=== PATIENT | male | born 1930 | race Caucasian/White ===

== ENCOUNTER 2017-07-22 22:25 | Inpatient (IN) | payer MEDICARE ==
[~2017-07-22] VITALS: Ht 162.6 cm; Wt 79.4 kg
[2017-07-22 22:25] VITALS: BP 143/94; PULSE 70; RESP 20; TEMP 98.4; O2SAT 98
[2017-07-22] MEDS ORDERED: IOHEXOL 350 MG/ML 10 ML VIAL (for RAD DIAG) IVCONTRAST ONE (22:26)
[2017-07-22 22:30] VITALS: BP 143/94; PULSE 70; RESP 20; O2SAT 98; O2SAT 99
[2017-07-22] MEDS ORDERED: SODIUM CHLOR 0.9% 1000 ML INJ 1,000 ML IV SCH (22:45)
[2017-07-22 22:48] LABS: I-STAT POTASSIUM 4.5 MMOL/L (3.5-4.9)
[2017-07-22 22:50] LABS: AUTOMATED NEUTROPHIL # 3.5 TH/MM3 (1.8-7.7); BASOPHIL % 0.5 % (0.0-2.0); EOSINOPHIL # 0.2 TH/MM3 (0-0.4); EOSINOPHIL % 3.9 % (0.0-4.0); HEMO FLAGS DIFF FINAL; LYMPH % 29.4 % (9.0-44.0); LYMPHOCYTE # 1.7 TH/MM3 (1.0-4.8); MEAN CELL VOLUME 93.6 FL (80.0-100.0); MEAN CORPUSCULAR HEMOGLOBIN 31.1 PG (27.0-34.0); MEAN CORPUSCULAR HGB CONC 33.2 % (32.0-36.0); MONO % 7.1 % (0.0-8.0); NEUT % 59.1 % (16.0-70.0); PLATELET COUNT 134 TH/MM3 (150-450); RED BLOOD COUNT 4.49 MIL/MM3 (4.50-5.90); RED CELL DISTRIBUTION WIDTH 13.5 % (11.6-17.2); WHITE BLOOD COUNT 5.9 TH/MM3 (4.0-11.0)
--- NOTE | 2017-07-22 22:56 | RADRPT ---
EXAM DATE/TIME: 07/22/2017 22:42 [facility] COMPARISON: No previous studies available for comparison. INDICATIONS : Stroke alert; slurred speech, left sided weakness. RADIATION DOSE: 36.45 CTDIvol (mGy) This report was called by Dr. Olmstead to Dr. Mccormack at 10: 54 PM MEDICAL HISTORY : Non-responsive. SURGICAL HISTORY : Non-responsive. ENCOUNTER: Initial ACUITY: 1 day PAIN SCALE: LOCATION: cranial TECHNIQUE: Multiple contiguous axial images were obtained of the head. Using automated exposure control and adj ustment of the mA and/or kV according to patient size, radiation dose was kept as low as reasonably a chievable to obtain optimal diagnostic quality images. DICOM format image data is available electro nically for review and comparison. FINDINGS: No acute intracranial mass, hemorrhage or midline shift. No hydrocephalus. Previous aneurysm clip not ed in the left middle cranial fossa. CONCLUSION: 1. No acute findings. Wilmar Olmstead MD on July 22, 2017 at 22:50 Board Certified Radiologist. This report was verified electronically.
[2017-07-22 23:09] LABS: APTT (PATIENT) 25.9 SEC (24.3-30.1); INTERNATIONAL NORMALIZED RATIO 1.2 RATIO; PROTHROMBIN TIME - PATIENT 12.2 SEC (9.8-11.6)
--- NOTE | 2017-07-22 23:12 | PD ---
HPI Chief Complaint: Stroke Alert Time Seen by Provider: 22:37 Travel History International Travel<30 days: No Contact w/Intl Traveler<30days: No History of Present Illness HPI The patient is an 86 year old male who presents to the [facility] emergency department with a history of reportedly last being seen normal at approximately 9:30 PM while sitting on the couch watching television. The patient then proceeded to take a few large deep breaths and then fell face forward onto the carpeted floor. The patient was unable to get up. The patient was noted to have at that time a left facial droop, left upper and left lower extremity weakness. The patient was assisted up by his grandson and family. The patient was then brought in by private vehicle. The patient has no prior history of stroke. The patient does however have a prior history of brain aneurysm status post clipping. The patient on arrival is noted to have an abrasion to the left side of his head. The patient is also noted to have abdominal distention which the family reports is chronic, however he also has an area of ecchymosis in the right upper quadrant of the abdomen which they report his new. The patient arrives awake and alert and is able to follow commands although he does have slurred speech. The patient has a gaze deviation to the right with a palsy with attempting to look to the left. The patient has an attention to his left side. The patient has a left-sided facial droop. The patient is on a low-dose aspirin daily. Otherwise review of systems, the patient has had recent congestion, cough, in the morning a couple of days ago accordingfamily he did have a bad cough and brought up some sputum that was next with a tinge of blood. Otherwise they deny him having any light in his stool or black or tarry stools. They are unsure whether the patient has had any fevers. He has had problems recently with increased shortness of breath and does have a history of COPD. The patient is on 2 L nasal cannula O2 at home when necessary. He denies having any neck pain, chest pain, abdominal pain, vomiting, diarrhea, or urinary symptoms. [facility] Past Medical History Narrative Medical The patient's past medical history is significant for COPD, coronary artery disease status post 3 stents being placed, history of aneurysm clipping, history of prostate enlargement, history of hypertension. He denies any prior history of stroke. Past Surgical History Narrative Surgical The Patient's past surgical history is significant for aneurysm clipping, cardiac catheterization with 3 prior stents placed. Social History Alcohol Use: No Tobacco Use: No Substance Use: No Allergies-Medications (Allergen,Severity, Reaction): Coded Allergies: No Known Allergies (Unverified , 07/22/17) Narrative Medication Metoprolol, terazosin, low-dose aspirin daily Review of Systems Except as stated in HPI: all other systems reviewed are Neg General / Constitutional: No: Fever Eyes: No: Visual changes HENT: Positive: Rhinorrhea, Congestion, No: Headaches Cardiovascular: Positive: Dyspnea on exertion, No: Chest Pain or Discomfort Respiratory: Positive: Cough, Shortness of Breath, Wheezing Gastrointestinal: No: Nausea, Vomiting, Diarrhea, Abdominal Pain Genitourinary: No: Dysuria Musculoskeletal: No: Pain Skin: No Rash Neurologic: Positive: Weakness, Focal Abnormalities, Slurred Speech, Sensory Disturbance, No: Change in Mentation Psychiatric: No: Depression Endocrine: No: Polydipsia Hematologic/Lymphatic: No: Easy Bruising Physical Exam Narrative General: The patient is a well-developed well-nourished male in no acute distress. Head and Neck exam: Head is normocephalic atraumatic. Eyes: EOMI, pupils are equal round and reactive to light. Nose: Midline septum with pink mucous membranes Mouth: Dentition unremarkable. Moist mucus membranes. Posterior oropharynx is not erythematous. No tonsillar hypertrophy. Uvula midline. Airway patent. Neck: No palpable lymphadenopathy. No nuchal rigidity. No thyromegaly. No spinous process tenderness on palpation. No step-off or crepitus. No erythema or ecchymosis. Cardiovascular: Regular rate and rhythm without murmurs, gallops, or rubs. No pulse deficit to the extremities on simultaneous auscultation and palpation of his radial artery. Lungs: Clear to auscultation bilaterally. No wheezes, rhonchi, or rales. Abdomen: Soft, without tenderness to palpation in all 4 quadrants of the abdomen. No guarding, rebound, or rigidity. Normal bowel sounds are audible. No tenderness on palpation of McBurney's point. Negative Jesus's sign. The patient has a circular appearing area of ecchymosis in the right upper quadrant of the abdomen which is according to the family new since his fall. Extremities: No clubbing, cyanosis, or edema. 2+ pulses in all 4 extremities. No calf tenderness on palpation. No extremity tenderness on palpation. Back: No spinous process tenderness to palpation. No costovertebral angle tenderness to palpation. Neurologic Exam: The patient has slurred speech. The patient has a left-sided facial droop. The patient has drift of the left upper and left lower extremity with strength testing, 4 over 5 in the left, 5 over 5 strength in the right upper and right lower extremity. The patient has a gaze palsy when attempting to gaze to the left side. The patient appears to have mild extinction to left side. The patient has decreased sensation to the left side. The patient is able to state his name and answer questions. Skin Exam: No rash noted. Intact skin that is warm and dry. Data Data Last Documented VS Vital Signs Date Time Temp Pulse Resp B/P (MAP) Pulse Ox O2 Delivery O2 Flow Rate FiO2 07/22/17 22:30 99 Nasal Cannula 4.00 07/22/17 22:30 70 20 143/94 (110) 07/22/17 22:25 98.4 Orders Orders Diet Npo (07/23/17 Breakfast) Activity Bed Rest (07/22/17 ) Electrocardiogram (07/22/17 ) I-Stat Creatinine (07/22/17 22:37) I-Stat Profile (07/22/17 22:37) Prothrombin Time / Inr (Pt) (07/22/17 22:37) Act Partial Throm Time (Ptt) (07/22/17 22:37) Complete Blood Count With Diff (07/22/17 22:37) Fibrinogen (07/22/17 22:37) Creatine Kinase (Cpk) (07/22/17 22:37) Troponin I (07/22/17 22:37) Ua Includes Microscopic (07/22/17 22:37) Drug Screen, Random Urine (07/22/17 22:37) Type And Screen (07/22/17 22:37) Ct Brain W/O Iv Contrast(Rout) (07/22/17 ) Chest, Single Ap (07/22/17 ) Cta Brain W Iv Contrast W 3d (07/22/17 22:37) Cta Neck W Iv Contrast W 3d (07/22/17 22:37) Consult Neurology (07/22/17 ) Blood Glucose (07/22/17 22:37) Ecg Monitoring (07/22/17 22:37) Neuro Checks Q2HX12,Q4H (07/22/17 22:37) Nursing Bedside Swallow Assess .ONCE (07/22/17 22:37) Iv Access Insert/Monitor (07/22/17 22:37) NPO (07/22/17 22:37) Oximetry (07/22/17 22:37) Oxygen Administration (07/22/17:37) Resp Oxygen Thomas C Titrat 1-4 L (07/22/17 22:37) Cath For Specimen (07/22/17 22:37) Ct Abd/Pel W Iv Contrast(Rout) (07/22/17 22:37) Ct Cerv Spine W/O Contrast (07/22/17 22:37) Sodium Chlor 0.9% 1000 Ml Inj (Ns 1000 M (07/22/17 22:45) (Hub Use Only)Inp Phy Cons/Ref (07/22/17 ) Iohexol 350 Inj (Omnipaque 350 Inj) (07/22/17 22:26) Blood Culture (07/23/17 00:02) Methylprednisolone So Succ Inj (Solumedr (07/23/17 00:15) Albuterol-Ipratropium Neb (Duoneb Neb) (07/23/17 00:15) Ceftriaxone Inj (Rocephin Inj) (07/23/17 00:15) Azithromycin Inj (Zithromax Inj) (07/23/17 00:15) Clopidogrel (Plavix) (07/23/17 00:15) Admit Order (Ed Use Only) (07/23/17 00:20) Labs Laboratory Tests Test 07/22/17 22:28 White Blood Count 5.9 TH/MM3 Red Blood Count 4.49 MIL/MM3 Hemoglobin 13.9 GM/DL Bedside Hemoglobin 14.3 G/DL Hematocrit 42.0 % Bedside Hematocrit 42.0 % Mean Corpuscular Volume 93.6 FL Mean Corpuscular Hemoglobin 31.1 PG Mean Corpuscular Hemoglobin Concent 33.2 % Red Cell Distribution Width 13.5 % Platelet Count 134 TH/MM3 Mean Platelet Volume 8.4 FL Neutrophils (%) (Auto) 59.1 % Lymphocytes (%) (Auto) 29.4 % Monocytes (%) (Auto) 7.1 % Eosinophils (%) (Auto) 3.9 % Basophils (%) (Auto) 0.5 % Neutrophils # (Auto) 3.5 TH/MM3 Lymphocytes # (Auto) 1.7 TH/MM3 Monocytes # (Auto) 0.4 TH/MM3 Eosinophils # (Auto) 0.2 TH/MM3 Basophils # (Auto) 0.0 TH/MM3 CBC Comment DIFF FINAL Differential Comment Prothrombin Time 12.2 SEC Prothromb Time International Ratio 1.2 RATIO Activated Partial Thromboplast Time 25.9 SEC Fibrinogen 488 mg/dL Bedside Sodium 143 MMOL/L Bedside Potassium 4.5 MMOL/L Bedside Chloride 105 MMOL/L Bedside Blood Urea Nitrogen 29 MG/DL Bedside Creatinine 1.7 MG/DL Bedside Glucose 97 MG/DL Total Creatine Kinase 72 U/L Troponin I 0.02 NG/ML [facility] Medical Screen Exam Complete: Yes Emergency Medical Condition: Yes Medical Record Reviewed: Yes EKG Prior to Arrival: No Differential Diagnosis Intracranial hemorrhage, versus ischemic stroke, versus intracranial mass, versus hypoglycemia. Narrative Course During the course of the patients emergency department visit, the patients history, examination, and differential diagnosis were reviewed with the patient. The patient was placed on a real estate attorney with oximetry and frequent blood pressure monitoring. The patient had IV access obtained and blood work sent for analysis. A stroke alert was called upon the patient's arrival. An EKG was done on arrival that shows a sinus rhythm with occasional premature ventricular complexes heart rate is 76, QRS duration is 90 ms, QTC 421 ms. The patient was initially provided normal saline at 70 mL per hour. The patient 's head of the bed was placed flat. I spoke to the neurologist airways operations specialist who recommended CT scan of the brain. She recommended proceeding with CTA of the brain and neck if the CT scan of the brain is negative for hemorrhage. CT scan of the abdomen and pelvis was also ordered given the patient's abdominal wall bruising. The patient also had a CT scan of the C-spine ordered to rule out traumatic injury to his neck. The patients laboratory studies were reviewed and remarkable for i-STAT with creatinine which revealed a sodium of 143, potassium 4.5, chloride 105, BUN 29, glucose 97, hemoglobin 14.3, creatinine 1.7. The patient was noted to have a white count of 5.9, hemoglobin 13.9, platelets 134 with a normal differential, fibrinogen 488, PT 12.2, PTT 25.9. Radiology studies were reviewed and remarkable for CT scan of the brain was read as negative for hemorrhage by the reading radiologist. Chest x-ray reveals a possible right infrahilar infiltrate. The patient was given DuoNeb 3 , Solu-Medrol 125 mg IV, and Rocephin 1 g IV followed by Zithromax 500 mg IV for pneumonia. C-spine x-ray shows degenerative changes, no acute abnormality. CT a of the brain shows no evidence of vessel truncation or aneurysm. CT scan of the abdomen and pelvis shows severe right hydronephrosis and hydroureter , no calcified stone findings suggest obstruction at the ureteral vesicle junction, cannot exclude bladder mass, infrarenal abdominal aortic aneurysms measuring up to 3.7 cm. Several nodular densities in the anterior right lower lung, round low-density lesion in the spleen. After discussion with the patient and the patient's family regarding the administration of TPA, the patient and the patient's family elected to not have this administered. The also decided to make the patient a DO NOT INTUBATE. The patients results were discussed with the patient, including the plan of care. I explained that further testing and/ or monitoring is indicated based on the patients history, examination, and/ or laboratory findings. Therefore, I recommended admission for additional evaluation. The patient expressed understanding and was agreeable with this plan. The patient was admitted to the hospital in critical condition and sent to a bed under the care of the veneer supervisor service. Critical Care Narrative Aggregate critical care time was 45 minutes. Time to perform other separately billable procedures was not included in the critical care time. My time did not include minutes spent treating any other patients simultaneously or on activities that did not directly contribute to the patient's treatment. The services I provided to this patient were to treat and/or prevent clinically significant deterioration that could result in: Respiratory failure, versus cardiovascular collapse, versus hypoxic brain injury, versus progressive disability I provided critical care services requiring my management, as noted below: Chart data review, documentation time, medication orders and management, vital sign assessments/reviewing monitor data, ordering and reviewing lab tests, ordering and interpreting/reviewing x-rays and diagnostic studies, care of the patient and discussion of the patient with the admitting physicians. Stroke Alert NIHSS NIH Stroke Scale Result: 8 NIHSS Time Completed: 22:53 Physician Communication Physician Communication The patient's case including history, pertinent physical examination findings, and laboratory studies were discussed with Ran, Dr. Olmstead, Dr. Storey. I spoke to the neurologist initially upon the patient's arrival. After CT scan was read by the radiologist, Dr. Olmstead at 1053 I again spoke to at 10:56 PM. Given the patient's history of aneurysm clipping, recent blood tinged sputum with coughing a few days ago, she recommended continued evaluation with a CTA of the brain. At 11:01 PM I did discuss with the patient's family the possibility of administering TPA although his risk would be higher given his age , history of aneurysm clipping, history of recent blood-tinged sputum. They're in the process of deciding whether they would want this administered. It was agreed that the patient would be admitted to the veneer supervisor service. Diagnosis Diagnosis: Primary Impression: Ischemic stroke Additional Impressions: COPD exacerbation Pneumonia Qualified Codes: J18.9 - Pneumonia, unspecified organism Admitting Physician Requests: Admit Maureen Mccormack MD Jul 22, 2017 23:11
--- NOTE | 2017-07-22 23:31 | RADRPT ---
EXAM DATE/TIME: 07/22/2017 22:51 [facility] COMPARISON: No previous studies available for comparison. INDICATIONS : Trauma; fall, bruising on abdomen. IV CONTRAST: 75 cc Omnipaque 350 (iohexol) IV ; Cumulative dose for multiple exams. ORAL CONTRAST: No oral contrast ingested. RADIATION DOSE: 15.26 CTDIvol (mGy) MEDICAL HISTORY : Non-responsive. SURGICAL HISTORY : Non-responsive. ENCOUNTER: Initial ACUITY: 1 day PAIN SCALE: 5/10 LOCATION: Bilateral abdomen TECHNIQUE: Volumetric scanning of the abdomen and pelvis was performed. Using automated exposure control and ad justment of the mA and/or kV according to patient size, radiation dose was kept as low as reasonably achievable to obtain optimal diagnostic quality images. DICOM format image data is available electro nically for review and comparison. FINDINGS: LOWER LUNGS: Several small nodular densities measuring 4 mm or less seen on the superiormost image of the scan in the anterior lower right lung. Mild pleural thickening in the right costophrenic angle. LIVER: Homogeneous density without lesion. There is no dilation of the biliary tree. No calcified gallston es. SPLEEN: Normal size. Solitary round low density lesion in the lateral midpole measures 1.9 cm, 50 Hounsfield unit.. PANCREAS: Within normal limits. KIDNEYS: Abnormal appearance to the right kidney with severe hydronephrosis and hydroureter which extends down to the ureterovesical junction. No calcified stones in the collecting system or ureter. The left k idney is normal in appearance and the left ureter is normal. ADRENAL GLANDS: Within normal limits. VASCULAR: 3.7 cm infrarenal abdominal aortic aneurysm with intraluminal thrombus. There is a 2nd aneurysmal di lation at the bifurcation measuring 3.1 cm. The iliac vessels are normal in dimension. BOWEL/MESENTERY: The stomach, small bowel, and colon demonstrate no acute abnormality. There is no free intraperitone al air or fluid. ABDOMINAL WALL: Within normal limits. RETROPERITONEUM: There is no lymphadenopathy. BLADDER: No wall thickening or mass. REPRODUCTIVE: Multiple metallic seeds within the prostate. The fat about the seminal vesicles is maintained. INGUINAL: There is no lymphadenopathy or hernia. MUSCULOSKELETAL: Mild degenerative changes. No sclerotic lesions. CONCLUSION: 1. Severe right hydronephrosis and hydroureter no calcified stones. Findings suggest obstruction at ureteral vesicle junction. Can not exclude a bladder mass. 2. Infrarenal abdominal aortic aneurysms measuring up to 3.7 cm. 3. Several small nodular densities in the anterior right lower lung, incompletely included in the fie ld-of-view of the exam. 4. Round low density lesion in the spleen. Tino Lenz MD on July 22, 2017 at 23:23 Board Certified Radiologist. This report was verified electronically.
--- NOTE | 2017-07-22 23:34 | RADRPT ---
EXAM DATE/TIME: 07/22/2017 23:28 [facility] COMPARISON: No previous studies available for comparison. INDICATIONS : CVA, short of breath. MEDICAL HISTORY : Stroke. SURGICAL HISTORY : None. ENCOUNTER: Initial ACUITY: 1 day PAIN SCORE: 0/10 LOCATION: Bilateral chest FINDINGS: Single frontal view of the chest with mild motion artifact. The heart is normal in size. Possible c onsolidative infiltrate in the right infrahilar region. The remainder of the lungs are clear. Both hemidiaphragms are well delineated. CONCLUSION: Possible right infrahilar infiltrate. Tino Lenz MD on July 22, 2017 at 23:33 Board Certified Radiologist. This report was verified electronically.
[2017-07-23] VITALS (17 sets, daily range): BP systolic 137–161; BP diastolic 63–79; PULSE 73–102; RESP 19–47; TEMP 98.9–100.4; O2SAT 93–98
[2017-07-23] MEDS ORDERED: methylPREDNISolone SOD SUCC 125 MG/2 ML VIAL IV PUSH ONE (00:15)
[2017-07-23] MEDS ORDERED: AZITHROMYCIN INJ 500 MG in SODIUM CHLOR 0.9% 250 ML INJ 250 ML IV ONE (00:15)
[2017-07-23] MEDS ORDERED: CLOPIDOGREL 75 MG TAB PO ONE (00:15)
[2017-07-23] MEDS ORDERED: cefTRIAXone INJ 1,000 MG in SODIUM CHLORIDE 0.9% INJ 100 ML IV ONE (00:15)
--- NOTE | 2017-07-23 00:29 | RADRPT ---
EXAM DATE/TIME: 07/22/2017 22:51 [facility] COMPARISON: No previous studies available for comparison. INDICATIONS : Neck pain after fall. RADIATION DOSE: ; Reconstructed from previous dataset, no dose MEDICAL HISTORY : Non-responsive. SURGICAL HISTORY : Non-responsive. ENCOUNTER: Initial ACUITY: 1 day PAIN SCALE: 5/10 LOCATION: Bilateral neck TECHNIQUE: Volumetric scanning of the cervical spine was performed. Multiplanar reconstructions in the sagittal, coronal and oblique axial planes were performed. Using automated exposure control and adjustment o f the mA and/or kV according to patient size, radiation dose was kept as low as reasonably achievable to obtain optimal diagnostic quality images. DICOM format image data is available electronically f or review and comparison. FINDINGS: There is normal alignment of the vertebral bodies of the cervical spine preservation of vertebral bod y height. Moderate severity degenerative changes seen the posterior elements, left greater than righ t 3 no evidence of locked or perched facets. The atlantoaxial articulation is intact. C2-C3: No fracture seen. The bony neural foramina are patent. C3-C4: No fracture seen. Mild bilateral neural foraminal stenosis. C4-C5: No fracture seen. Mild bilateral neural foraminal stenosis. C5-C6: No fracture seen. Moderate bilateral neural foraminal stenosis. C6-C7: No fracture seen. Moderate bilateral neural foraminal stenosis. C7-T1: No fracture seen. The bony neural foramina are patent. CONCLUSION: 1. Degenerative changes throughout the cervical spine. 2. No evidence of compression deformity or spondylolisthesis. Tino Lenz MD on July 23, 2017 at 0:08 Board Certified Radiologist. This report was verified electronically.
--- NOTE | 2017-07-23 00:41 | RADRPT ---
EXAM DATE/TIME: 07/22/2017 22:51 [facility] COMPARISON: CT BRAIN W/O CONTRAST, July 22, 2017, 22:42. INDICATIONS : Stroke alert; slurred speech, left sided weakness. IV CONTRAST: 75 cc Omnipaque 350 (iohexol) IV ; Cumulative dose for multiple exams. RADIATION DOSE: 27.68 CTDIvol (mGy) ; Combined studies MEDICAL HISTORY : Non-responsive. SURGICAL HISTORY : Non-responsive. ENCOUNTER: Initial ACUITY: 1 day PAIN SCALE: Non-responsive LOCATION: Bilateral cranial TECHNIQUE: Volumetric scanning was performed using a multi-row detector CT scanner. The data was post processed with a variety of visualization algorithms including full volume maximum intensity projection, multi -planar sliding thin slab reformation, curved planar reformation, and surface rendering techniques. Using automated exposure control and adjustment of the mA and/or kV according to patient size, radiat ion dose was kept as low as reasonably achievable to obtain optimal diagnostic quality images. DICO M format image data is available electronically for review and comparison. FINDINGS: There is excellent visualization of the major intracranial arteries out to the second-order branch ve ssels. There is no evidence for aneurysm, vessel truncation or stenosis, and no evidence for vascula r malformation. The right posterior cerebral artery arises from the anterior circulation. Anterior communicating artery is normal in size. Aneurysm clip in the left anterior middle cranial fossa. CONCLUSION: No evidence of vessel truncation or aneurysm. Tino Lenz MD on July 23, 2017 at 0:37 Board Certified Radiologist. This report was verified electronically.
--- NOTE | 2017-07-23 00:53 | RADRPT ---
EXAM DATE/TIME: 07/22/2017 22:51 [place] COMPARISON: No previous studies available for comparison. INDICATIONS : Stroke alert; slurred speech, left sided weakness. IV CONTRAST: 75 cc Omnipaque 350 (iohexol) IV ; Cumulative dose for multiple exams. RADIATION DOSE: 27.68 CTDIvol (mGy) ; Combined studies MEDICAL HISTORY : Non-responsive. SURGICAL HISTORY : Non-responsive. ENCOUNTER: Initial ACUITY: 1 day PAIN SCALE: Non-responsive LOCATION: Bilateral neck Elevated flow velocities and ICA/CCA ratios have been found to correlate with increased degrees of vessel stenosis, calculated as percentage of diameter relative to a normal segment of distal ICA/CCA. TECHNIQUE: Volumetric scanning was performed using a multirow detector CT scanner. The data was post processed with a variety of visualization algorithms including full-volume maximum intensity projection, multip lanar sliding thin-slab reformation, curved-planar reformation, and surface-rendering techniques. Us ing automated exposure control and adjustment of the mA and/or kV according to patient size, radiatio n dose was kept as low as reasonably achievable to obtain optimal diagnostic quality images. DICOM f ormat image data is available electronically for review and comparison. FINDINGS: AORTIC ARCH: There is a three-vessel origin of the great vessels from the aorta. Prominent calcifications of the origin of all 3 vessels and primary calcifications in the aortic arch.. RIGHT CAROTID: Multifocal old calcifications in the internal carotid artery with a 50% luminal narrowing in the mid internal carotid artery. Carotid folds is normal in configuration. LEFT CAROTID: Multifocal areas of wall calcification in the proximal and mid internal carotid artery without eviden ce of luminal narrowing. The carotid bulb is normal in configuration. VERTEBRALS: The vertebral arteries have a symmetric diameter. No stenotic lesions are seen. CONCLUSION: 1. Calcification in the proximal right internal carotid artery causing 50% lumen narrowing. 2. Calcifications the origin of the great vessels from the aorta and in the left internal carotid art dennis with out significant luminal narrowing. Tino Lenz MD on July 23, 2017 at 0:49 Board Certified Radiologist. This report was verified electronically.
[2017-07-23] MEDS ORDERED: BISACODYL 10 MG SUPP RECTAL PRN (01:00)
[2017-07-23] MEDS ORDERED: LACTULOSE SYRUP 20 GM/30 ML CUP PO PRN (01:00)
[2017-07-23] MEDS ORDERED: ACETAMINOPHEN 325 MG TAB PO PRN (01:00)
[2017-07-23] MEDS ORDERED: MISCELLANEOUS NURSING INFORMATION XX SCH (01:00)
[2017-07-23] MEDS ORDERED: ONDANSETRON HCL 4 MG/2 ML VIAL IV PUSH PRN (01:00)
[2017-07-23] MEDS ORDERED: SODIUM CHLORIDE 0.9% FLUSH 10 ML FLUSH IV FLUSH PRN (01:00)
[2017-07-23] MEDS ORDERED: SENNOSIDES 8.6 MG TAB PO PRN (01:00)
[2017-07-23] MEDS: RESP: ALBUTEROL 2.5 MG/IPRATROPIUM 0.5 MG NEB (SCH) INH ×2 (01:00→01:01)
[2017-07-23] MEDS ORDERED: MAGNESIUM HYDROXIDE SUSP 30 ML CUP PO PRN (01:00)
[2017-07-23] MEDS ORDERED: hydrALAZINE HCL 20 MG/ML VIAL IV PUSH PRN (01:00)
[2017-07-23] MEDS ORDERED: CHLORHEXIDINE GLUCONATE 2 % 1 PACK (2 CLOTHS) TOP PRN (01:00)
--- NOTE | 2017-07-23 01:05 | HHI.HP ---
HPI Service Critical Care Medicine Primary Care Physician Non-Staff Admission Diagnosis Stroke Alert, Pneumonia, copd exacerbation Diagnosis: Travel History International Travel<30 Days: No Contact w/Intl Traveler <30 Da: No Traveled to Known Affected Are: No History of Present Illness 86 year old male presents with a history of last being seen normal at approximately 9:30 PM while sitting on the couch watching television. The patient then proceeded to take a few large deep breaths and then fell face forward onto the carpeted floor. The patient was unable to get up. He was noted to have at that time a left facial droop, left upper and left lower extremity weakness. He has no prior history of stroke. He has a prior history of brain aneurysm status post clipping about 30 years ago. The patient is awake and alert and is able to follow commands although he does have slurred speech. The patient has a gaze deviation to the right with a palsy with attempting to look to the left. He also has a left-sided facial droop. Stroke alert was called and the case was discussed with Dr. Brown, the neurologist monkey breeder. Due to multiple comorbidities abdominal aneurysm and previous head bleed, the patient's family refused the administration of TPA. Review of Systems Constitutional: COMPLAINS OF: Dizziness, DENIES: Diaphoretic episodes, Fatigue , Fever, Weight gain, Weight loss, Chills, Change in appetite, Night Sweats Endocrine: DENIES: Heat/cold intolerance, Polydipsia, Polyuria, Polyphagia Eyes: DENIES: Blurred vision, Diplopia, Eye inflammation, Eye pain, Vision loss , Photosensitivity, Double Vision Ears, nose, mouth, throat: DENIES: Tinnitus, Hearing loss, Vertigo, Nasal discharge, Oral lesions, Throat pain, Hoarseness, Ear Pain, Running Nose, Epistaxis, Sinus Pain, Toothache, Odynophagia Respiratory: DENIES: Apneas, Cough, Snoring, Wheezing, Hemoptysis, Sputum production, Shortness of breath Cardiovascular: DENIES: Chest pain, Palpitations, Syncope, Dyspnea on Exertion , PND, Lower Extremity Edema, Orthopnea, Claudication Gastrointestinal: DENIES: Abdominal pain, Black stools, Bloody stools, Constipation, Diarrhea, Nausea, Vomiting, Difficulty Swallowing, Anorexia Genitourinary: DENIES: Sexual dysfunction, Urinary frequency, Urinary incontinence, Urgency, Hematuria, Dysuria, Nocturia, Penile Discharge, Testicular Pain, Testicular Swelling Musculoskeletal: DENIES: Joint pain, Muscle aches, Stiffness, Joint Swelling, Back pain, Neck pain Integumentary: DENIES: Abnormal pigmentation, Nail changes, Pruritus, Rash Hematologic/lymphatic: DENIES: Bruising, Lymphadenopathy Immunologic/allergic: DENIES: Eczema, Urticaria Neurologic: COMPLAINS OF: Abnormal gait, Localized weakness, Poor Balance, DENIES: Headache, Paresthesias, Seizures, Speech Problems, Tremor Psychiatric: DENIES: Anxiety, Confusion, Mood changes, Depression, Hallucinations, Agitation, Suicidal Ideation, Homicidal Ideation, Delusions Past Family Social History Allergies: Coded Allergies: No Known Allergies (Unverified , 07/22/17) Past Medical History COPD Coronary artery disease status post 3 stent Cerebral aneurysm status post clipping 30 years ago BPH Past Surgical History The Patient's past surgical history is significant for aneurysm clipping, cardiac catheterization with 3 prior stents placed. Reported Medications Aspirin Active Ordered Medications Current Medications Medications (Trade) Dose Ordered Sig/Braden Route PRN Reason Start Time Stop Time Status Last Admin Dose Admin Azithromycin 500 mg/Sodium Chloride 250 ml @ 250 mls/hr ONCE ONCE IV 07/23/17 00:15 07/23/17 01:14 Sodium Chloride 1,000 ml @ 84 mls/hr [id number] IV 07/23/17 00:50 Sodium Chloride (NS Flush) 2 ml UNSCH PRN IV FLUSH FLUSH AFTER USING IV ACCESS 07/23/17 01:00 Sodium Chloride (NS Flush) 2 ml BID IV FLUSH 07/23/17 09:00 Acetaminophen (Tylenol) 650 mg Q6H PRN PO PAIN 1-10 AND/OR FEVER >101F 07/23/17 01:00 Famotidine (Pepcid Inj) 20 mg Q12HR IV PUSH 07/23/17 09:00 Ondansetron HCl (Zofran Inj) 4 mg Q6H PRN IV PUSH NAUSEA OR VOMITING 07/23/17 01:00 Albuterol/ Ipratropium (Duoneb Neb) 1 ampule Q2HR NEB PRN INH WHEEZING 07/23/17 01:00 UNV Heparin Sodium (Porcine) (Heparin Inj) 5,000 units Q8H SQ 07/23/17 01:00 Miscellaneous Information 1 Q361D XX 07/23/17 01:00 Chlorhexidine Gluconate (Chlorhexidine 2% Cloth) 3 pack Taper DAILY@04 TOP 07/23/17 04:00 07/19/18 03:59 Chlorhexidine Gluconate (Chlorhexidine 2% Cloth) 3 pack UNSCH PRN TOP HYGIENIC CARE 07/23/17 01:00 Senna/Docusate Sodium (Lilliam-Colace) 1 tab BID PO 07/23/17 09:00 Magnesium Hydroxide (Milk Of Magnesia Liq) 30 ml Q12H PRN PO Mild constipation 07/23/17 01:00 Sennosides (Senokot) 17.2 mg Q12H PRN PO Moderate constipation 07/23/17 01:00 Bisacodyl (Dulcolax Supp) 10 mg DAILY PRN RECTAL SEVERE CONSITIPATION/ IF NPO 07/23/17 01:00 Lactulose (Lactulose Liq) 30 ml DAILY PRN PO SEVERE CONSITIPATION/ IF PO 07/23/17 01:00 Hydralazine HCl (Apresoline Inj) 20 mg Q4H PRN IV PUSH SBP>200, DBP>100 07/23/17 01:00 Family History No family history significant EARLY coronary artery disease or stroke Social History Negative for tobacco, alcohol, or illicit drug abuse Physical Exam Vital Signs Vital Signs Date Time Temp Pulse Resp B/P (MAP) Pulse Ox O2 Delivery O2 Flow Rate FiO2 07/22/17 22:30 99 Nasal Cannula 4.00 07/22/17 22:30 70 20 143/94 (110) 98 Nasal Cannula 2.00 07/22/17 22:30 98 Nasal Cannula 2.00 07/22/17 22:30 99 4.00 07/22/17 22:25 98.4 70 20 143/94 (110) 98 Physical Exam GENERAL: Well-nourished, well-developed patient. SKIN: Warm and dry. HEAD: Forehead abrasions on the left side EYES: No scleral icterus. No injection or drainage. NECK: Supple, trachea midline. No JVD or lymphadenopathy. CARDIOVASCULAR: Regular rate and rhythm without murmurs, gallops, or rubs. RESPIRATORY: Breath sounds equal bilaterally. No accessory muscle use. GASTROINTESTINAL: Abdomen soft, non-tender, distended with some skin ecchymosis. MUSCULOSKELETAL: No cyanosis, or edema. BACK: Nontender without obvious deformity. NEURO EXAM:The patient has slurred speech. The patient has a left-sided facial droop. The patient has drift of the left upper and left lower extremity with strength testing, 4 over 5 in the left, 5 over 5 strength in the right upper and right lower extremity. The patient has a gaze palsy when attempting to gaze to the left side. He has decreased sensation to the left side. The patient is able to state his name and answer questions. Laboratory Laboratory Tests Test 07/22/17 22:28 White Blood Count 5.9 Red Blood Count 4.49 Hemoglobin 13.9 Bedside Hemoglobin 14.3 Hematocrit 42.0 Bedside Hematocrit 42.0 Mean Corpuscular Volume 93.6 Mean Corpuscular Hemoglobin 31.1 Mean Corpuscular Hemoglobin Concent 33.2 Red Cell Distribution Width 13.5 Platelet Count 134 Mean Platelet Volume 8.4 Neutrophils (%) (Auto) 59.1 Lymphocytes (%) (Auto) 29.4 Monocytes (%) (Auto) 7.1 Eosinophils (%) (Auto) 3.9 Basophils (%) (Auto) 0.5 Neutrophils # (Auto) 3.5 Lymphocytes # (Auto) 1.7 Monocytes # (Auto) 0.4 Eosinophils # (Auto) 0.2 Basophils # (Auto) 0.0 CBC Comment DIFF FINAL Differential Comment Prothrombin Time 12.2 Prothromb Time International Ratio 1.2 Activated Partial Thromboplast Time 25.9 Fibrinogen 488 Bedside Sodium 143 Bedside Potassium 4.5 Bedside Chloride 105 Bedside Blood Urea Nitrogen 29 Bedside Creatinine 1.7 Bedside Glucose 97 Total Creatine Kinase 72 Troponin I 0.02 Result Diagram: 07/22/172227 Imaging Last 24 hours Impressions Neck CTA 07/22/172236 Signed Impressions: Service Date/Time: Saturday, July 22, 2017 22:51 - CONCLUSION: 1. Calcification in the proximal right internal carotid artery causing 50%% lumen narrowing. 2. Calcifications the origin of the great vessels from the aorta and in the left internal carotid artery with out significant luminal narrowing. Tino Lenz MD Head CTA 07/22/172236 Signed Impressions: Service Date/Time: Saturday, July 22, 2017 22:51 - CONCLUSION: No evidence of vessel truncation or aneurysm. Tino Lenz MD Cervical Spine CT 07/22/172236 Signed Impressions: Service Date/Time: Saturday, July 22, 2017 22:51 - CONCLUSION: 1. Degenerative changes throughout the cervical spine. 2. No evidence of compression deformity or spondylolisthesis. Tino Lenz MD Abdomen/Pelvis CT 07/22/177 Signed Impressions: Service Date/Time: Saturday, July 22, 2017 22:51 - CONCLUSION: 1. Severe right hydronephrosis and hydroureter no calcified stones. Findings suggest obstruction at ureteral vesicle junction. Can not exclude a bladder mass. 2. Infrarenal abdominal aortic aneurysms measuring up to 3.7 cm. 3. Several small nodular densities in the anterior right lower lung, incompletely included in the [id number] of the exam. 4. Round low density lesion in the spleen. Tino Lenz MD Septic Shock Reassessment Septic shock perfusion: reassessment completed Caprini VTE Risk Assessment Caprini VTE Risk Assessment: Mod/High Risk (score >= 2) Caprini Risk Assessment Model Point Value = 1 Point Value = 2 Point Value = 3 Point Value = 5 Age 41-60 Minor surgery BMI > 25 kg/m2 Swollen legs Varicose veins or History of unexplained or recurrent spontaneous Oral contraceptives or hormone replacement Sepsis (< 1 month) Serious lung disease, including pneumonia (< 1 month) Abnormal pulmonary function Acute myocardial infarction Congestive heart failure (< 1 month) History of inflammatory bowel disease Medical patient at bed rest Age 61-74 Arthroscopic surgery Major open surgery (> 45 min) Laparoscopic surgery (> 45 min) Malignancy Confined to bed (> 72 hours) Immobilizing plaster cast Central venous access Age >= 75 History of VTE Family history of VTE Factor V Leiden Prothrombin [id number] Lupus anticoagulant Anticardiolipin antibodies Elevated serum homocysteine Heparin-induced thrombocytopenia Other congenital or acquired thrombophilia Stroke (< 1 month) Elective arthroplasty Hip, pelvis, or leg fracture Acute spinal cord injury (< 1 month) Prophylaxis Regimen Total Risk Factor Score Risk Level Prophylaxis Regimen 0-1 Low Early ambulation 2 Moderate Order ONE of the following: *Sequential Compression Device (SCD) *Heparin 5000 units SQ BID 3-4 Higher Order ONE of the following medications: *Heparin 5000 units SQ TID *Enoxaparin/Lovenox 40 mg SQ daily (WT < 150 kg, CrCl > 30 mL/min) *Enoxaparin/Lovenox 30 mg SQ daily (WT < 150 kg, CrCl > 10-29 mL/min) *Enoxaparin/Lovenox 30 mg SQ BID (WT < 150 kg, CrCl > 30 mL/min) AND/OR *Sequential Compression Device (SCD) 5 or more Highest Order ONE of the following medications: *Heparin 5000 units SQ TID (Preferred with Epidurals) *Enoxaparin/Lovenox 40 mg SQ daily (WT < 150 kg, CrCl > 30 mL/min) *Enoxaparin/Lovenox 30 mg SQ daily (WT < 150 kg, CrCl > 10-29 mL/min) *Enoxaparin/Lovenox 30 mg SQ BID (WT < 150 kg, CrCl > 30 mL/min) AND *Sequential Compression Device (SCD) Assessment and Plan Assessment and Plan Acute CVA - No TPA administered - Aspirin Plavix per neurology - PT and OT as tolerated - Speech evaluation and treatment Aortic aneurysm - No intervention indicated - Blood pressure control - Supportive care Hydronephrosis - Obstructive - Neurology consult COPD - DuoNeb scheduled and when necessary - No indication for steroids Coronary artery disease - Continue aspirin and Plavix DVT GI prophylaxis - Teds SCDs - Subcutaneous heparin - Pepcid Critical Care: The total critical care time was 35 minutes. Time to perform other separately billable procedures was not included in the critical care time. Tai Storey MD Jul 23, 2017 01:05
[2017-07-23] MEDS: SODIUM CHLOR 0.9% 1000 ML INJ 1,000 ML IV SCH ×2 (02:14→12:45)
[2017-07-23] MEDS: HEPARIN SODIUM - SQ 10,000 UNITS/ML VIAL SQ SCH ×3 (02:14→17:45)
[2017-07-23] MEDS: RESP: ALBUTEROL 2.5 MG/IPRATROPIUM 0.5 MG NEB (SCH) NEB ×4 (03:06→20:44)
[2017-07-23] MEDS: CHLORHEXIDINE GLUCONATE 2 % 1 PACK (2 CLOTHS) TOP SCH (03:30)
--- NOTE | 2017-07-23 08:41 | PD.CONS ---
History of Present Illness Service Neurology Consult Requested By er Reason for Consult stroke alert Primary Care Physician Non-Staff History of Present Illness 86 year old male admitted for possible acute stroke. er md d/w on-call neurologist. tpa not given as family declined, ? hx of ich. pt made dni Review of Systems as above Past Family Social History Allergies: Coded Allergies: No Known Allergies (Unverified , 07/22/17) Past Medical History COPD Coronary artery disease status post 3 stent Cerebral aneurysm status post clipping 30 years ago BPH Past Surgical History The Patient's past surgical history is significant for aneurysm clipping, cardiac catheterization with 3 prior stents placed. Reported Medications Aspirin Family History n/c at present Social History Negative for tobacco, alcohol, or illicit drug abuse Review of Systems All other ROS: ROS reviewed as documented in chart Past Family Social History Allergies: Coded Allergies: No Known Allergies (Unverified , 07/22/17) Active Ordered Medications Current Medications Medications (Trade) Dose Ordered Sig/Braden Route Start Time Stop Time Status Last Admin Sodium Chloride 1,000 ml @ 84 mls/hr [id number] IV 07/23/17 00:50 07/23/17 02:14 (NS Flush) 2 ml UNSCH PRN IV FLUSH 07/23/17 01:00 (NS Flush) 2 ml BID IV FLUSH 07/23/17 09:00 (Tylenol) 650 mg Q6H PRN PO 07/23/17 01:00 (Pepcid Inj) 20 mg Q12HR IV PUSH 07/23/17 09:00 (Zofran Inj) 4 mg Q6H PRN IV PUSH 07/23/17 01:00 (Duoneb Neb) 1 ampule Q2HR NEB PRN INH 07/23/17 01:00 (Heparin Inj) 5,000 units Q8H SQ 07/23/17 01:00 07/23/17 02:14 Miscellaneous Information 1 Q361D XX 07/23/17 01:00 (Chlorhexidine 2% Cloth) 3 pack Taper DAILY@04 TOP 07/23/17 04:00 07/19/18 03:59 (Chlorhexidine 2% Cloth) 3 pack UNSCH PRN TOP 07/23/17 01:00 (Lilliam-Colace) 1 tab BID PO 07/23/17 09:00 (Milk Of Magnesia Liq) 30 ml Q12H PRN PO 07/23/17 01:00 (Senokot) 17.2 mg Q12H PRN PO 07/23/17 01:00 (Dulcolax Supp) 10 mg DAILY PRN RECTAL 07/23/17 01:00 (Lactulose Liq) 30 ml DAILY PRN PO 07/23/17 01:00 (Apresoline Inj) 20 mg Q4H PRN IV PUSH 07/23/17 01:00 (Duoneb Neb) 1 ampule Q6HR NEB NEB 07/23/17 04:00 07/23/17 03:06 Exam I&O / VS Vital Signs Date Time Temp Pulse Resp B/P (MAP) Pulse Ox O2 Delivery O2 Flow Rate FiO2 07/23/17 06:00 94 07/23/17 06:00 94 23 137/65 (89) 94 07/23/17 05:00 94 21 96 07/23/17 04:00 96 07/23/17 04:00 96 19 137/63 (87) 96 07/23/17 03:09 97 Nasal Cannula 3.00 07/23/17 03:00 98.9 88 22 156/70 (98) 93 07/23/17 03:00 Nasal Cannula 3.00 07/23/17 01:26 73 20 144/71 (95) 98 Nasal Cannula 3.00 07/23/17 01:21 144/71 (95) 98 2.00 07/22/17 22:30 99 Nasal Cannula 4.00 07/22/17 22:30 70 20 143/94 (110) 98 Nasal Cannula 2.00 07/22/17 22:30 98 Nasal Cannula 2.00 07/22/17 22:30 99 4.00 07/22/17 22:25 98.4 70 20 143/94 (110) 98 Review/Management Diagnosis/Plan: (1) Ischemic stroke ICD Codes: I63.9 - Cerebral infarction, unspecified Status: Acute Plan: ct brain naicp cta brain nml ct carotids rt carotid 50%, left carotid/arch- calcifications without significant stenosis recs (2) Pneumonia ICD Codes: J18.9 - Pneumonia, unspecified organism Status: Acute (3) COPD exacerbation ICD Codes: J44.1 - Chronic obstructive pulmonary disease with (acute) exacerbation Status: Acute Problem Qualifiers (1) Pneumonia: Qualified Codes: J18.9 - Pneumonia, unspecified organism Jose Hendrix MD Jul 23, 2017 08:41
[2017-07-23] MEDS: SODIUM CHLORIDE 0.9% FLUSH 10 ML FLUSH IV FLUSH SCH ×2 (09:00→20:30)
[2017-07-23] MEDS: DOCUSATE SODIUM 50 MG/SENNA 8.6 MG TAB PO SCH ×2 (09:00→20:30)
[2017-07-23] MEDS: FAMOTIDINE 20 MG/2 ML VIAL IV PUSH SCH ×2 (09:00→20:30)
[2017-07-23 13:11] LABS: HDL CHOLESTEROL 59.3 MG/DL (40.0-60.0); LDL CHOLESTEROL 57 MG/DL (0-99)
--- NOTE | 2017-07-23 13:12 | PD.CONS ---
HPI Service Urology Consult Requested By Reason for Consult Right Hydronephrosis Primary Care Physician Non-Staff Diagnosis: History of Present Illness 86 yo male h/o Prostate Cancer s/p Brachytherapy x 15 years admitted with left sided CVA found to have incidental right hydroureteronephrosis. Denies flank pain, nausea, vomiting, hematuria. Denies any issues with voiding. Has good stream. Denies urinary incontinence. Denies h/o kidney stones. He takes Coumadin daily. Review of Systems Neurologic: COMPLAINS OF: Localized weakness, Speech Problems, DENIES: Abnormal gait, Headache, Paresthesias, Seizures, Tremor, Poor Balance Except as stated in HPI: all other systems reviewed are Neg Past Family Social History Past Medical History CVA, Prostate Cancer, [place], HTN Past Surgical History Cardiac catheterization with stent x 3, Brachytherapy Allergies: Coded Allergies: No Known Allergies (Unverified , 07/22/17) Active Ordered Medications Albuterol. Family History Denies urolithiasis, malignancies Social History Denies illicit drugs, EtOH, tobacco use Physical Exam Vital Signs Date Time Temp Pulse Resp B/P (MAP) Pulse Ox O2 Delivery O2 Flow Rate FiO2 07/23/17 08:55 98 Nasal Cannula 3.00 07/23/17 07:00 Nasal Cannula 3.00 07/23/17 06:00 94 07/23/17 06:00 94 23 137/65 (89) 94 07/23/17 05:00 94 21 96 07/23/17 04:00 96 07/23/17 04:00 96 19 137/63 (87) 96 07/23/17 03:09 97 Nasal Cannula 3.00 07/23/17 03:00 98.9 88 22 156/70 (98) 93 07/23/17 03:00 Nasal Cannula 3.00 07/23/17 01:26 73 20 144/71 (95) 98 Nasal Cannula 3.00 07/23/17 01:21 144/71 (95) 98 2.00 07/22/17 22:30 99 Nasal Cannula 4.00 07/22/17 22:30 70 20 143/94 (110) 98 Nasal Cannula 2.00 07/22/17 22:30 98 Nasal Cannula 2.00 07/22/17 22:30 99 4.00 07/22/17 22:25 98.4 70 20 143/94 (110) 98 Physical Exam GENERAL: This is a well-nourished, well-developed patient, in no apparent distress. SKIN: No rashes, ecchymoses or lesions. Cool and dry. HEAD: Atraumatic. Normocephalic. No temporal or scalp tenderness. EYES: Pupils equal round and reactive. Extraocular motions intact. No scleral icterus. No injection or drainage. ENT: Nose without bleeding, purulent drainage or septal hematoma. Throat without erythema, tonsillar hypertrophy or exudate. Uvula midline. Airway patent. NECK: Trachea midline. No JVD or lymphadenopathy. Supple, nontender, no meningeal signs. CARDIOVASCULAR: Regular rate and rhythm without murmurs, gallops, or rubs. RESPIRATORY: Clear to auscultation. Breath sounds equal bilaterally. No wheezes , rales, or rhonchi. GASTROINTESTINAL: Abdomen soft, non-tender, nondistended. No hepato-splenomegaly , or palpable masses. No guarding. GENITOURINARY: normal phallus, testes descended bilaterally without mass MUSCULOSKELETAL: Extremities without clubbing, cyanosis, or edema. No joint tenderness, effusion, or edema noted. No calf tenderness. Negative Homans sign bilaterally. NEUROLOGICAL: Awake and alert. Cranial nerves II through XII intact. Motor and sensory grossly within normal limits. Five out of 5 muscle strength in all muscle groups. Normal speech. Lab results reviewed: Yes Laboratory Tests Test 07/22/17 22:28 07/23/17 03:10 07/23/17 11:50 White Blood Count 5.9 Red Blood Count 4.49 Hemoglobin 13.9 Bedside Hemoglobin 14.3 Hematocrit 42.0 Bedside Hematocrit 42.0 Mean Corpuscular Volume 93.6 Mean Corpuscular Hemoglobin 31.1 Mean Corpuscular Hemoglobin Concent 33.2 Red Cell Distribution Width 13.5 Platelet Count 134 Mean Platelet Volume 8.4 Neutrophils (%) (Auto) 59.1 Lymphocytes (%) (Auto) 29.4 Monocytes (%) (Auto) 7.1 Eosinophils (%) (Auto) 3.9 Basophils (%) (Auto) 0.5 Neutrophils # (Auto) 3.5 Lymphocytes # (Auto) 1.7 Monocytes # (Auto) 0.4 Eosinophils # (Auto) 0.2 Basophils # (Auto) 0.0 CBC Comment DIFF FINAL Differential Comment Prothrombin Time 12.2 Prothromb Time International Ratio 1.2 Activated Partial Thromboplast Time 25.9 Fibrinogen 488 Bedside Sodium 143 Bedside Potassium 4.5 Bedside Chloride 105 Bedside Blood Urea Nitrogen 29 Bedside Creatinine 1.7 Bedside Glucose 97 Total Creatine Kinase 72 Troponin I 0.02 Nasal Screen MRSA (PCR) MRSA NOT DETECTED Triglycerides Level 72 Cholesterol Level 131 Date/Time Source Procedure Growth Status 07/23/17 00:24 Blood Peripheral Aerobic Blood Culture Pending Received 07/23/17 00:24 Blood Peripheral Anaerobic Blood Culture Pending Received Result Diagram: 07/22/172227 Personally reviewed images: Yes (right hydronephrosis down to bladder) Imaging Last Impressions Neck CTA 07/22/172236 Signed Impressions: Service Date/Time: Saturday, July 22, 2017 22:51 - CONCLUSION: 1. Calcification in the proximal right internal carotid artery causing 50%% lumen narrowing. 2. Calcifications the origin of the great vessels from the aorta and in the left internal carotid artery with out significant luminal narrowing. Tino Lenz MD Head CTA 07/22/172236 Signed Impressions: Service Date/Time: Saturday, July 22, 2017 22:51 - CONCLUSION: No evidence of vessel truncation or aneurysm. Tino Lenz MD Cervical Spine CT 07/22/172236 Signed Impressions: Service Date/Time: Saturday, July 22, 2017 22:51 - CONCLUSION: 1. Degenerative changes throughout the cervical spine. 2. No evidence of compression deformity or spondylolisthesis. Tino Lenz MD Abdomen/Pelvis CT 07/22/172236 Signed Impressions: Service Date/Time: Saturday, July 22, 2017 22:51 - CONCLUSION: 1. Severe right hydronephrosis and hydroureter no calcified stones. Findings suggest obstruction at ureteral vesicle junction. Can not exclude a bladder mass. 2. Infrarenal abdominal aortic aneurysms measuring up to 3.7 cm. 3. Several small nodular densities in the anterior right lower lung, incompletely included in the zynjk-kg-fult of the exam. 4. Round low density lesion in the spleen. Tino Lenz MD Head CT 07/22/17 0000 Signed Impressions: Service Date/Time: Saturday, July 22, 2017 22:42 - CONCLUSION: 1. No acute findings. Wilmar Olmstead MD Chest X-Ray 07/22/17 0000 Signed Impressions: Service Date/Time: Saturday, July 22, 2017 23:28 - CONCLUSION: Possible right infrahilar infiltrate. iTno Lenz MD Assessment and Plan Assessment and Plan 86 yo male h/o Prostate Cancer s/p Brachytherapy x 15 years admitted with left sided CVA found to have incidental Right Hydroureteronephrosis -Recommend conservative management at this time as he is asymptomatic and has good renal function -If his clinical picture worsens or Creatinine starts to rise, then could do Lasix Renogram versus cystoscopy, retrograde pyelogram to r/o obstruction -Thank you for this consult. Wan Vazquez MD Jul 23, 2017 13:12
--- NOTE | 2017-07-23 15:26 | EKG ---
Date Performed: 07/22/2017 Time Performed: 22:30:12 PTAGE: 86 years EKG: Sinus rhythm WITH SHORT MD INTERVAL WITH OCCASIONAL VENTRICULAR PREMATURE COMPLEXES LOW QRS VOLTAGE IN EXTREMITY LEADS BORDERLINE ECG NO PREVIOUS TRACING DOCTOR: Jf Butcher Interpretating Date/Time 07/23/2017 15:25:06
[2017-07-23 16:57] LABS: HEMOGLOBIN A1a 1.2 %; HEMOGLOBIN A1b 1.8 %; HEMOGLOBIN Ao 84.7 %; HEMOGLOBIN LA1C 2.3 %; HEMOGLOBIN P3 5.3 %
[2017-07-23 19:00] LABS: BACTERIA, URINE RARE /hpf; BLOOD, URINE TRACE (NEG); GLUCOSE,URINE NEG (NEG); KETONE, URINE NEG (NEG); MUCUS URINE FEW /lpf (OCC); NITRITE,URINE NEG (NEG); URINE COLOR YELLOW (YELLW/STRAW)
--- NOTE | 2017-07-23 20:22 | MG ---
cc: KRUNAL MCWILLIAMS M.D. Lab No: Date: 07/23/2017 Age: Sex: M Race: REQUESTING PHYSICIAN Dr. Hendrix INDICATION An EEG was obtained this 86-year-old patient being evaluated for possible seizures. Apparent fall. DESCRIPTION The patient is awake. Hyperventilation was not performed. There is a lot of artifact, especially coming out of the right hemisphere leads. There are beta rhythms and there is some theta activity bilaterally. There is some possible intermittent delta rhythms bilaterally. Photic stimulation was unremarkable. Intermittent right arm and right leg movements described but there is no ictal pattern. INTERPRETATION Abnormal EEG. The study is limited because of the excessive artifact but there appears to be some mild bilateral slowing with more artifact coming out of the right hemisphere. The findings suggest mild bilateral abnormalities and no epileptiform features present though the study is somewhat limited in regards to a research for epileptiform abnormality because of the excessive artifact. MD KATHRIN Mason/KK /6:50 PM /7:55 PM
--- NOTE | 2017-07-23 22:29 | RADRPT ---
EXAM DATE/TIME: 07/23/2017 22:04 [place] COMPARISON: No previous studies available for comparison. INDICATIONS : Post stroke alert, suspected right MCA stroke. RADIATION DOSE: 35.94 CTDIvol (mGy) MEDICAL HISTORY : Cardiovascular disease. Cerebrovascular disease. Hypertension. SURGICAL HISTORY : Pacemaker. ENCOUNTER: Subsequent ACUITY: 2 days PAIN SCALE: Non-responsive LOCATION: Bilateral cranial TECHNIQUE: Multiple contiguous axial images were obtained of the head. Using automated exposure control and adj ustment of the mA and/or kV according to patient size, radiation dose was kept as low as reasonably a chievable to obtain optimal diagnostic quality images. DICOM format image data is available electro nically for review and comparison. FINDINGS: There is a large evolving infarct in the right MCA distribution with probable thrombus in the posteri or right MCA branch. 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 No left-sided acute infarcts i dentified. Lacunar infarct present left basal ganglia. CONCLUSION: 1. Large evolving infarct in the right MCA distribution with mild localized mass effect. No acute hem orrhage. No significant midline shift. Wilmar Olmstead MD on July 23, 2017 at 22:22 Board Certified Radiologist. This report was verified electronically.
[2017-07-24] VITALS (13 sets, daily range): BP systolic 129–166; BP diastolic 60–78; PULSE 88–105; RESP 16–30; TEMP 98–100.1; O2SAT 88–99
[2017-07-24] MEDS: SODIUM CHLOR 0.9% 1000 ML INJ 1,000 ML IV SCH ×3 (00:40→22:40)
[2017-07-24] MEDS: HEPARIN SODIUM - SQ 10,000 UNITS/ML VIAL SQ SCH ×3 (01:18→17:00)
[2017-07-24] MEDS: RESP: ALBUTEROL 2.5 MG/IPRATROPIUM 0.5 MG NEB (SCH) NEB ×4 (03:45→20:40)
[2017-07-24] MEDS ORDERED: MORPHINE SULFATE 2 MG/ML INJ IV ONE (03:45)
[2017-07-24] MEDS: CHLORHEXIDINE GLUCONATE 2 % 1 PACK (2 CLOTHS) TOP SCH (04:00)
[2017-07-24 06:56] LABS: AUTOMATED NEUTROPHIL # 4.8 TH/MM3 (1.8-7.7); BASOPHIL % 0.4 % (0.0-2.0); HEMO FLAGS DIFF FINAL; LYMPH % 9.1 % (9.0-44.0); LYMPHOCYTE # 0.5 TH/MM3 (1.0-4.8); MEAN CORPUSCULAR HEMOGLOBIN 31.5 PG (27.0-34.0); MEAN CORPUSCULAR HGB CONC 33.9 % (32.0-36.0); MONO % 8.9 % (0.0-8.0); NEUT % 81.6 % (16.0-70.0); PLATELET COUNT 117 TH/MM3 (150-450); RED BLOOD COUNT 3.98 MIL/MM3 (4.50-5.90); RED CELL DISTRIBUTION WIDTH 13.7 % (11.6-17.2); WHITE BLOOD COUNT 5.8 TH/MM3 (4.0-11.0)
[2017-07-24 07:12] LABS: ANION GAP 8 MEQ/L (5-15); AST (GOT) 22 U/L (15-37); BICARBONATE 23.9 MEQ/L (21.0-32.0); BLOOD UREA NITROGEN 14 MG/DL (7-18); CHLORIDE 112 MEQ/L (98-107); GLOMERULAR FILTRATION RATE 50 ML/MIN (>89); POTASSIUM 3.9 MEQ/L (3.5-5.1); SODIUM (NA) 144 MEQ/L (136-145)
[2017-07-24 07:29] LABS: ALKALINE PHOSPHATASE 57 U/L (45-117); ALT (GPT) 15 U/L (12-78); TOTAL BILIRUBIN ADULT 0.5 MG/DL (0.2-1.0)
[2017-07-24] MEDS: MORPHINE SULFATE 2 MG/ML INJ IV PRN ×5 (07:49→22:40)
--- NOTE | 2017-07-24 09:07 | HHI.PR ---
Review/Management Diagnosis/Plan: (1) Ischemic stroke ICD Codes: I63.9 - Cerebral infarction, unspecified Status: Acute Plan: R MCA infarct ct brain naicp cta brain nml ct carotids rt carotid 50%, left carotid/arch- calcifications without significant stenosis 07/23 moderate to large rt mca infarct on repeat ct scan, ? rt mca hyperdense sign recs aspirin therapy (2) Pneumonia ICD Codes: J18.9 - Pneumonia, unspecified organism Status: Acute (3) COPD exacerbation ICD Codes: J44.1 - Chronic obstructive pulmonary disease with (acute) exacerbation Status: Acute Subjective Subjective Comments No acute events reported No headache No chest pain No dyspnea Active Medications Current Medications Medications (Trade) Dose Ordered Sig/Braden Route Start Time Stop Time Status Last Admin Sodium Chloride 1,000 ml @ 84 mls/hr [id number] IV 07/23/17 00:50 07/24/17 06:09 (NS Flush) 2 ml UNSCH PRN IV FLUSH 07/23/17 01:00 (NS Flush) 2 ml BID IV FLUSH 07/23/17 09:00 07/23/17 20:30 (Tylenol) 650 mg Q6H PRN PO 07/23/17 01:00 (Pepcid Inj) 20 mg Q12HR IV PUSH 07/23/17 09:00 07/23/17 20:30 (Zofran Inj) 4 mg Q6H PRN IV PUSH 07/23/17 01:00 (Duoneb Neb) 1 ampule Q2HR NEB PRN INH 07/23/17 01:00 (Heparin Inj) 5,000 units Q8H SQ 07/23/17 01:00 07/24/17 01:18 Miscellaneous Information 1 [id number] 07/23/17 01:00 (Chlorhexidine 2% Cloth) 3 pack Taper DAILY@04 TOP 07/23/17 04:00 07/19/18 03:59 (Chlorhexidine 2% Cloth) 3 pack UNSCH PRN TOP 07/23/17 01:00 (Lilliam-Colace) 1 tab BID PO 07/23/17 09:00 (Milk Of Magnesia Liq) 30 ml Q12H PRN PO 07/23/17 01:00 (Senokot) 17.2 mg Q12H PRN PO 07/23/17 01:00 (Dulcolax Supp) 10 mg DAILY PRN RECTAL 07/23/17 01:00 (Lactulose Liq) 30 ml DAILY PRN PO 07/23/17 01:00 (Apresoline Inj) 20 mg Q4H PRN IV PUSH 07/23/17 01:00 (Duoneb Neb) 1 ampule Q6HR NEB NEB 07/23/17 04:00 07/24/17 03:45 (Morphine Inj) 2 mg Q2H PRN IV 07/24/17 04:00 07/24/17 07:49 Allergies Allergies Coded Allergies No Known Allergies ([id number]/12/17) Review of Systems All other ROS: ROS reviewed as documented in chart Exam I&O / VS Vital Signs Date Time Temp Pulse Resp B/P (MAP) Pulse Ox O2 Delivery O2 Flow Rate FiO2 07/24/17 07:00 94 Simple Mask 10.00 07/24/17 06:00 94 07/24/17 04:00 99.1 98 30 138/60 (86) 90 07/24/17 04:00 98 07/24/17 02:00 96 07/24/17 00:00 88 07/24/17 00:00 99.6 88 27 151/67 (95) 90 07/23/17 22:00 96 07/23/17 20:43 93 Nasal Cannula 6.00 07/23/17 20:00 98 07/23/17 20:00 99.6 98 47 141/69 (93) 93 07/23/17 19:00 Nasal Cannula 3.00 07/23/17 18:00 102 07/23/17 16:00 100.4 96 35 161/79 (106) 94 07/23/17 16:00 96 07/23/17 14:00 96 07/23/17 12:00 96 07/23/17 12:00 99.7 96 26 153/75 (101) 93 07/23/17 10:00 100 Objective Micro and Labs Laboratory Tests Test 07/23/17 11:50 07/23/17 18:15 07/24/17 06:21 Hemoglobin A1c 5.3 Triglycerides Level 72 Cholesterol Level 131 LDL Cholesterol 57 HDL Cholesterol 59.3 Cholesterol/HDL Ratio 2.20 Urine Color YELLOW Urine Turbidity CLEAR Urine pH 5.0 Urine Specific [place] 1.025 Urine Protein TRACE Urine Glucose (UA) NEG Urine Ketones NEG Urine Occult Blood TRACE Urine Nitrite NEG Urine Bilirubin NEG Urine Urobilinogen LESS THAN 2.0 Urine Leukocyte Esterase NEG Urine RBC 2 Urine WBC 1 Urine Amorphous Sediment RARE Urine Bacteria RARE Urine Mucus FEW Urine Opiates Screen NEG Urine Barbiturates Screen NEG Urine Amphetamines Screen NEG Urine Benzodiazepines Screen NEG Urine Cocaine Screen NEG Urine Cannabinoids Screen NEG White Blood Count 5.8 Red Blood Count 3.98 Hemoglobin 12.6 Hematocrit 37.0 Mean Corpuscular Volume 93.0 Mean Corpuscular Hemoglobin 31.5 Mean Corpuscular Hemoglobin Concent 33.9 Red Cell Distribution Width 13.7 Platelet Count 117 Mean Platelet Volume 8.3 Neutrophils (%) (Auto) 81.6 Lymphocytes (%) (Auto) 9.1 Monocytes (%) (Auto) 8.9 Eosinophils (%) (Auto) 0.0 Basophils (%) (Auto) 0.4 Neutrophils # (Auto) 4.8 Lymphocytes # (Auto) 0.5 Monocytes # (Auto) 0.5 Eosinophils # (Auto) 0.0 Basophils # (Auto) 0.0 CBC Comment DIFF FINAL Differential Comment Blood Urea Nitrogen 14 Creatinine 1.36 Random Glucose 106 Total Protein 6.4 Albumin 2.8 Calcium Level 7.9 Phosphorus Level 2.5 Magnesium Level 2.0 Alkaline Phosphatase 57 Aspartate Amino Transf (AST/SGOT) 22 Alanine Aminotransferase (ALT/SGPT) 15 Total Bilirubin 0.5 Sodium Level 144 Potassium Level 3.9 Chloride Level 112 Carbon Dioxide Level 23.9 Anion Gap 8 Estimat Glomerular Filtration Rate 50 Date/Time Source Procedure Growth Status 07/23/17 00:24 Blood Peripheral Aerobic Blood Culture Pending Received 07/23/17 00:24 Blood Peripheral Anaerobic Blood Culture Pending Received Problem Qualifiers (1) Pneumonia: Qualified Codes: J18.9 - Pneumonia, unspecified organism Jose Hendrix MD Jul 24, 2017 09:07
[2017-07-24] MEDS: SODIUM CHLORIDE 0.9% FLUSH 10 ML FLUSH IV FLUSH SCH ×2 (09:37→20:04)
[2017-07-24] MEDS: FAMOTIDINE 20 MG/2 ML VIAL IV PUSH SCH ×2 (09:37→20:04)
[2017-07-24] MEDS: DOCUSATE SODIUM 50 MG/SENNA 8.6 MG TAB PO SCH ×2 (09:37→20:04)
--- NOTE | 2017-07-24 09:51 | PD.CONS ---
Consult Service Palliative Care . Consult Requested By Dr. Storey . Primary Care Physician Non-Staff . Reason for Consultation a. To assist with evaluation and management of symptoms including: dyspnea. b. To assist medical decision maker(s) with: better understanding of current medical conditions; weighing benefits/burdens of medical treatment options; making medical treatment decisions. . HPI History of Present Illness Mr. Nick is an 86 year old male with past medical history of COPD, hypertension, coronary artery disease post 3 stents, aneurysm clipping (30 years ago) and prostate cancer s/p brachytherapy 15 years ago. Patient presented to [facility] on 07/22/17 after taking a few deep breaths then fell face forward onto the carpeted floor while watching TV. He was unable to get up, he had left facial droop and left upper and lower extremity weakness. He was brought to ER via private vehicle by family. He had an abrasion to left forehead, right upper quadrant abdominal ecchymosis. Upon arrival to the ER he was awake and alert, following commands with slurred speech , left facial droop, gaze to the right with palsy when looking to the left. Family also reported recent cough, congestion, shortness of breath and blood tinge sputum. Initial ER evaluation revealed: * T 98.4, pulse 70, resp 20 and BP 143/94 O2 sat 99% on 4 LPM * WBC 5.9, HGD 13.9, HCT 42, Platelets 134, Neutrophils 59.1% * PT 12.2, INR 1.2, PTT 25.9 * Fibrinogen 488 * Sodium 143, potassium 4.5, Chloride 105, BUN 29, creatinine 1.7, Glucose 97 * Troponin 0.02, total creatine kinase 72 * CT head - no acute findings * Chest xray - possible infrahilar infiltrate * CTA neck - calcification in proximal right internal carotid artery causing 50 % lumen narrowing, calcifications of great vessels from the aorta and in the left internal carotid artery without significant luminal narrowing. * CTA head - no evidence of vessel truncation or narrowing. * CT cervical spine - degenerative changes throughout the cervical spine, no evidence of compression deformity or spondylolisthesis. * CT abd/pelvis - severe right hydronephrosis and hydroureter no calcified stones, suggest obstruction at ureteral vesicle junction, cannot exclude bladder mass, infrarenal AAA measuring up to 3.7cm, several small nodular densities in the anterior right lower lung, round low density lesion in the spleen. Patient was admitted for possible stroke, pneumonia, hydronephrosis and COPD exacerbation. Due to multiple comorbidities abdominal aneurysm and previous head bleed, the patient's family refused the administration of TPA. Neurology, Dr. Hendrix was consulted with recommendation to repeat CT head. Repeat CT head revealed large evolving infarct in the right MCA distribution with mild localized mass effect, no acute hemorrhage, no midline shift. Lacunar infarct present in left basal ganglia. EEG limited study, some bilateral slowing, no epileptiform features. Urology, Dr. Vazquez was consulted and recommended conservative management given good renal function and asymptomatic. If renal function worsens would consider Lasix Renogram vs cystoscopy, retrograde pyelogram to rule out obstruction. Blood cultures negative to date. Speech therapy evaluation recommended NPO status due to severe oropharyngeal dysphagia and severe dysarthria. Palliative care was consulted to assist with further clarification of goals. . Review of Systems Constitutional: COMPLAINS OF: Fatigue, Change in appetite (decreased recently eating only bites and sips of most meals ) Respiratory: COMPLAINS OF: Cough, Sputum production, Shortness of breath Cardiovascular: COMPLAINS OF: Dyspnea on Exertion Genitourinary: COMPLAINS OF: Dribbling, Decreased stream Hematologic/Lymphatics: COMPLAINS OF: Bruising Neurologic: COMPLAINS OF: Localized weakness (left sided weakness), Poor Balance Past Family Social History Coded Allergies: No Known Allergies (Unverified , 07/22/17) Past Medical History Hypertension COPD Coronary artery disease post 3 stents Aneurysm clipping (30 years ago) Prostate cancer s/p brachytherapy 15 years ago Prior ID Vertigo GERD Hyperlipidemia Hemorrhoids Umbilical hernia Constipation Chronic abdominal distention H/O GI bleed . Past Surgical History Prostatectomy Cardiac catheterization with coronary stent placement. Brachytherapy Tonsillectomy and adenoidectomy Left back, neck, ear and top of head surgery for basal cell cancer removal Back surgery 1963 Craniectomy . Reported Medications Current Medications Sodium Chloride 1,000 ml @ 70 mls/hr [id number] IV Last administered on 23:13; Start 07/22/17 at 22:45; Stop 07/23/17 at 01:04; Status DC Iohexol (Omnipaque 350 Inj) 75 ml STK-MED ONCE IVCONTRAST Last administered on 07/22/17 22:26; Start 07/22/17 at 22:26; Stop 07/23/17 at 00:01; Status DC Methylprednisolone Sodium Succinate (SoluMEDROL INJ) 125 mg ONCE ONCE IV PUSH Last administered on 07/23/17 02:14; Start 07/23/17 at 00:15; Stop 07/23/17 at 00:16; Status DC Albuterol/ Ipratropium (Duoneb Neb) 1 ampule Q15M INH Last administered on 01:01; Start 07/23/17 at 00:15; Stop 07/23/17 at 00:46; Status DC Ceftriaxone Sodium 1000 mg/ Sodium Chloride 100 ml @ 200 mls/hr ONCE ONCE IV Last administered on 07/23/17 02:13; Start 07/23/17 at 00:15; Stop 07/23/17 at 00:44; Status DC Azithromycin 500 mg/Sodium Chloride 250 ml @ 250 mls/hr ONCE ONCE IV Last administered on 07/23/17 02:13; Start 07/23/17 at 00:15; Stop 07/23/17 at 01 :14; Status DC Clopidogrel Bisulfate (Plavix) 75 mg ONCE ONCE PO ; Start 07/23/17 at 00:15; Stop 07/23/17 at 00:16; Status DC Sodium Chloride 1,000 ml @ 84 mls/hr [id number] IV Last administered on 06:09; Start 07/23/17 at 00:50 Sodium Chloride (NS Flush) 2 ml UNSCH PRN IV FLUSH FLUSH AFTER USING IV ACCESS ; Start 07/23/17 at 01:00 Sodium Chloride (NS Flush) 2 ml BID IV FLUSH Last administered on 07/24/17 09 :37; Start 07/23/17 at 09:00 Acetaminophen (Tylenol) 650 mg Q6H PRN PO PAIN 1-4 AND/OR FEVER >101F; Start 07/23/17 at 01:00 Famotidine (Pepcid Inj) 20 mg Q12HR IV PUSH Last administered on 07/24/17 09: 37; Start 07/23/17 at 09:00 Ondansetron HCl (Zofran Inj) 4 mg Q6H PRN IV PUSH NAUSEA OR VOMITING; Start at 01:00 Albuterol/ Ipratropium (Duoneb Neb) 1 ampule Q2HR NEB PRN INH WHEEZING; Start 07/23/17 at 01:00 Heparin Sodium (Porcine) (Heparin Inj) 5,000 units Q8H SQ Last administered on 07/24/17 09:36; Start 07/23/17 at 01:00 Miscellaneous Information 1 Q361D XX ; Start 07/23/17 at 01:00 Chlorhexidine Gluconate (Chlorhexidine 2% Cloth) 3 pack Taper DAILY@04 TOP ; Start 07/23/17 at 04:00; Stop 07/19/18 at 03:59 Chlorhexidine Gluconate (Chlorhexidine 2% Cloth) 3 pack UNSCH PRN TOP HYGIENIC CARE; Start 07/23/17 at 01:00 Senna/Docusate Sodium (Lilliam-Colace) 1 tab BID PO Last administered on 09:37; Start 07/23/17 at 09:00 Magnesium Hydroxide (Milk Of Magnesia Liq) 30 ml Q12H PRN PO Mild constipation ; Start 07/23/17 at 01:00 Sennosides (Senokot) 17.2 mg Q12H PRN PO Moderate constipation; Start at 01:00 Bisacodyl (Dulcolax Supp) 10 mg DAILY PRN RECTAL SEVERE CONSITIPATION/ IF NPO; Start 07/23/17 at 01:00 Lactulose (Lactulose Liq) 30 ml DAILY PRN PO SEVERE CONSITIPATION/ IF PO; Start 07/23/17 at 01:00 Hydralazine HCl (Apresoline Inj) 20 mg Q4H PRN IV PUSH SBP>200, DBP>100; Start 07/23/17 at 01:00 Albuterol/ Ipratropium (Duoneb Neb) 1 ampule Q6HR NEB NEB Last administered on 07/24/17 09:57; Start 07/23/17 at 04:00 Morphine Sulfate (Morphine Inj) 2 mg STAT ONCE IV Last administered on 03:49; Start 07/24/17 at 03:45; Stop 07/24/17 at 03:46; Status DC Morphine Sulfate (Morphine Inj) 2 mg Q2H PRN IV PAIN 5-10 Last administered on 07/24/17 10:51; Start 07/24/17 at 04:00 Aspirin (Aspirin Supp) 300 mg DAILY RECTAL Last administered on 07/24/17t 10: 50; Start 07/24/17 at 09:30 . Current Medications Medications (Trade) Dose Ordered Sig/Braden Route Start Time Stop Time Status Last Admin Sodium Chloride 1,000 ml @ 84 mls/hr [id number] IV 07/23/17 00:50 07/24/17 06:09 (NS Flush) 2 ml UNSCH PRN IV FLUSH 07/23/17 01:00 (NS Flush) 2 ml BID IV FLUSH 07/23/17 09:00 07/23/17 20:30 (Tylenol) 650 mg Q6H PRN PO 07/23/17 01:00 (Pepcid Inj) 20 mg Q12HR IV PUSH 07/23/17 09:00 07/23/17 20:30 (Zofran Inj) 4 mg Q6H PRN IV PUSH 07/23/17 01:00 (Duoneb Neb) 1 ampule Q2HR NEB PRN INH 07/23/17 01:00 (Heparin Inj) 5,000 units Q8H SQ 07/23/17 01:00 07/24/17 01:18 Miscellaneous Information 1 Q361D XX 07/23/17 01:00 (Chlorhexidine 2% Cloth) 3 pack Taper DAILY@04 TOP 07/23/17 04:00 07/19/18 03:59 (Chlorhexidine 2% Cloth) 3 pack UNSCH PRN TOP 07/23/17 01:00 (Lilliam-Colace) 1 tab BID PO 07/23/17 09:00 (Milk Of Magnesia Liq) 30 ml Q12H PRN PO 07/23/17 01:00 (Senokot) 17.2 mg Q12H PRN PO 07/23/17 01:00 (Dulcolax Supp) 10 mg DAILY PRN RECTAL 07/23/17 01:00 (Lactulose Liq) 30 ml DAILY PRN PO 07/23/17 01:00 (Apresoline Inj) 20 mg Q4H PRN IV PUSH 07/23/17 01:00 (Duoneb Neb) 1 ampule Q6HR NEB NEB 07/23/17 04:00 07/24/17 03:45 (Morphine Inj) 2 mg Q2H PRN IV 07/24/17 04:00 07/24/17 07:49 (Aspirin Supp) 300 mg DAILY RECTAL 07/24/17 09:30 Family History Father of CVA age 60. . Substance Use Tobacco: Former smoker. Alcohol: Occasional alcohol use. Prescription med abuse: none. Illicits: none. . Psychosocial History for 68 years to Nichelle. Lives in [place]. visits family in [place] a few months per year. [employer] . Has 3 children. 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 Enjoys playing golf. . Spiritual/Cultural Factors [facility]. Welcomes social welfare research worker and dispute resolution specialist support. . Living Will: Never completed Health Care Surrogate: Never completed Durable Power of Mini Shifter: Never completed Health Care Surrogate(s): Patient appears capacitated at this time, though I would recommend shared decision making. According to [place] statutes, should he lose capacity, health care proxy decision making would fall to his . Nichelle. . Today's verbally stated goals: He and family goals remain aggressive short of ACLS and shock only. Family/friends goals: He and family goals remain aggressive short of ACLS and shock only. . Ethical and Legal Issues Patient appears capacitated at this time, though I would recommend shared decision making. According to [place] statutes, should he lose capacity, health care proxy decision making would fall to his . Nichelle. . Physical Exam Vital Signs Date Time Temp Pulse Resp B/P (MAP) Pulse Ox O2 Delivery O2 Flow Rate FiO2 07/24/17 07:00 94 Simple Mask 10.00 07/24/17 06:00 94 07/24/17 04:00 99.1 98 30 138/60 (86) 90 07/24/17 04:00 98 07/24/17 02:00 96 07/24/17 00:00 88 07/24/17 00:00 99.6 88 27 151/67 (95) 90 07/23/17 22:00 96 07/23/17 20:43 93 Nasal Cannula 6.00 07/23/17 20:00 98 07/23/17 20:00 99.6 98 47 141/69 (93) 93 07/23/17 19:00 Nasal Cannula 3.00 07/23/17 18:00 102 07/23/17 16:00 100.4 96 35 161/79 (106) 94 07/23/17 16:00 96 07/23/17 14:00 96 07/23/17 12:00 96 07/23/17 12:00 99.7 96 26 153/75 (101) 93 07/23/17 10:00 100 Exam CONSTITUTIONAL/GENERAL: This is an adequately nourished patient, awakens and communicates with slurred speech. TUBES/LINES/DRAINS:O2 simple mask, PIV bilaterally, SCDs SKIN: No jaundice, rashes, or lesions. Ecchymoses on upper extremities. No wounds seen anteriorly. Skin temperature appropriate. Not diaphoretic. HEAD: Atraumatic. Normocephalic. EYES: Verbalizes difficulty opening eyes all the way. No scleral icterus. No injection or drainage. ENT: Hearing grossly normal. Nose without bleeding or purulent drainage. Throat without visible erythema, exudates, masses, or lesions. NECK: Trachea midline. Supple, nontender. No palpable thyroid enlargement or nodularity. CARDIOVASCULAR: Regular rate and rhythm without murmurs, gallops, or rubs. No JVD. RESPIRATORY/CHEST: Labored respirations at rest, using accessory muscles, diminished breath sounds. Intermittent cough noted. GASTROINTESTINAL: Abdomen soft, non-tender, distended. No guarding. Bowel sounds present. GENITOURINARY: Without palpable bladder distension. Maurice catheter in place. MUSCULOSKELETAL: Extremities without clubbing, cyanosis, or edema. No mottling or clubbing. LYMPHATICS: No palpable cervical or supraclavicular adenopathy. NEUROLOGICAL: Awakens, oriented, knows why he is in the hospital. Left facial droop. Left upper and lower extremity weakness. PSYCHIATRIC: No obvious anxiety/depression. no apparent hallucinations or other psychotic thought process. . Diagnostic Tests Laboratory Laboratory Tests Test 07/22/17 22:28 07/23/17 03:10 07/23/17 11:50 07/23/17 18:15 White Blood Count 5.9 TH/MM3 (4.0-11.0) Red Blood Count 4.49 MIL/MM3 (4.50-5.90) Hemoglobin 13.9 GM/DL (13.0-17.0) Bedside Hemoglobin 14.3 G/DL (12.0-17.0) Hematocrit 42.0 % (39.0-51.0) Bedside Hematocrit 42.0 % (38.0-51.0) Mean Corpuscular Volume 93.6 FL (80.0-100.0) Mean Corpuscular Hemoglobin 31.1 PG (27.0-34.0) Mean Corpuscular Hemoglobin Concent 33.2 % (32.0-36.0) Red Cell Distribution Width 13.5 % (11.6-17.2) Platelet Count 134 TH/MM3 (150-450) Mean Platelet Volume 8.4 FL (7.0-11.0) Neutrophils (%) (Auto) 59.1 % (16.0-70.0) Lymphocytes (%) (Auto) 29.4 % (9.0-44.0) Monocytes (%) (Auto) 7.1 % (0.0-8.0) Eosinophils (%) (Auto) 3.9 % (0.0-4.0) Basophils (%) (Auto) 0.5 % (0.0-2.0) Neutrophils # (Auto) 3.5 TH/MM3 (1.8-7.7) Lymphocytes # (Auto) 1.7 TH/MM3 (1.0-4.8) Monocytes # (Auto) 0.4 TH/MM3 (0-0.9) Eosinophils # (Auto) 0.2 TH/MM3 (0-0.4) Basophils # (Auto) 0.0 TH/MM3 (0-0.2) CBC Comment DIFF FINAL Differential Comment Prothrombin Time 12.2 SEC (9.8-11.6) Prothromb Time International Ratio 1.2 RATIO Activated Partial Thromboplast Time 25.9 SEC (24.3-30.1) Fibrinogen 488 mg/dL (227-377) Bedside Sodium 143 MMOL/L (138-146) Bedside Potassium 4.5 MMOL/L (3.5-4.9) Bedside Chloride 105 MMOL/L (98-109) Bedside Blood Urea Nitrogen 29 MG/DL (8-26) Bedside Creatinine 1.7 MG/DL (0.8-1.3) Bedside Glucose 97 MG/DL (60-95) Total Creatine Kinase 72 U/L (39-308) Troponin I 0.02 NG/ML (0.02-0.05) Nasal Screen MRSA (PCR) MRSA NOT DETECTED (NOT Hemoglobin A1c 5.3 % (4.3-6.0) Triglycerides Level 72 MG/DL (42-150) Cholesterol Level 131 MG/DL (120-200) LDL Cholesterol 57 MG/DL (0-99) HDL Cholesterol 59.3 MG/DL (40.0-60.0) Cholesterol/HDL Ratio 2.20 RATIO Urine Color YELLOW (YELLW/STRAW) Urine Turbidity CLEAR (CLEAR) Urine pH 5.0 (5.0-8.5) Urine Specific [place] 1.025 (1.002-1.035) Urine Protein TRACE mg/dL (NEG-TRACE) Urine Glucose (UA) NEG mg/dL (NEG) Urine Ketones NEG mg/dL (NEG) Urine Occult Blood TRACE (NEG) Urine Nitrite NEG (NEG) Urine Bilirubin NEG (NEG) Urine Urobilinogen LESS THAN 2.0 MG/DL (LESS Urine Leukocyte Esterase NEG (NEG) Urine RBC 2 /hpf (0-3) Urine WBC 1 /hpf (0-5) Urine Amorphous Sediment RARE Urine Bacteria RARE /hpf (NONE) Urine Mucus FEW /lpf (OCC) Urine Opiates Screen NEG (NEG) Urine Barbiturates Screen NEG (NEG) Urine Amphetamines Screen NEG (NEG) Urine Benzodiazepines Screen NEG (NEG) Urine Cocaine Screen NEG (NEG) Urine Cannabinoids Screen NEG (NEG) Test 07/24/17 06:21 White Blood Count 5.8 TH/MM3 (4.0-11.0) Red Blood Count 3.98 MIL/MM3 (4.50-5.90) Hemoglobin 12.6 GM/DL (13.0-17.0) Hematocrit 37.0 % (39.0-51.0) Mean Corpuscular Volume 93.0 FL (80.0-100.0) Mean Corpuscular Hemoglobin 31.5 PG (27.0-34.0) Mean Corpuscular Hemoglobin Concent 33.9 % (32.0-36.0) Red Cell Distribution Width 13.7 % (11.6-17.2) Platelet Count 117 TH/MM3 (150-450) Mean Platelet Volume 8.3 FL (7.0-11.0) Neutrophils (%) (Auto) 81.6 % (16.0-70.0) Lymphocytes (%) (Auto) 9.1 % (9.0-44.0) Monocytes (%) (Auto) 8.9 % (0.0-8.0) Eosinophils (%) (Auto) 0.0 % (0.0-4.0) Basophils (%) (Auto) 0.4 % (0.0-2.0) Neutrophils # (Auto) 4.8 TH/MM3 (1.8-7.7) Lymphocytes # (Auto) 0.5 TH/MM3 (1.0-4.8) Monocytes # (Auto) 0.5 TH/MM3 (0-0.9) Eosinophils # (Auto) 0.0 TH/MM3 (0-0.4) Basophils # (Auto) 0.0 TH/MM3 (0-0.2) CBC Comment DIFF FINAL Differential Comment Blood Urea Nitrogen 14 MG/DL (7-18) Creatinine 1.36 MG/DL (0.60-1.30) Random Glucose 106 MG/DL (74-106) Total Protein 6.4 GM/DL (6.4-8.2) Albumin 2.8 GM/DL (3.4-5.0) Calcium Level 7.9 MG/DL (8.5-10.1) Phosphorus Level 2.5 MG/DL (2.5-4.9) Magnesium Level 2.0 MG/DL (1.5-2.5) Alkaline Phosphatase 57 U/L (45-117) Aspartate Amino Transf (AST/SGOT) 22 U/L (15-37) Alanine Aminotransferase (ALT/SGPT) 15 U/L (12-78) Total Bilirubin 0.5 MG/DL (0.2-1.0) Sodium Level 144 MEQ/L (136-145) Potassium Level 3.9 MEQ/L (3.5-5.1) Chloride Level 112 MEQ/L (98-107) Carbon Dioxide Level 23.9 MEQ/L (21.0-32.0) Anion Gap 8 MEQ/L (5-15) Estimat Glomerular Filtration Rate 50 ML/MIN (>89) Result Diagram: 07/24/1762007/24/17620 Microbiology Microbiology Date/Time Source Procedure Growth Status 07/23/17 00:24 Blood Peripheral Aerobic Blood Culture Pending Received 07/23/17 00:24 Blood Peripheral Anaerobic Blood Culture Pending Received 07/23/17 00:24 Blood Peripheral Aerobic Blood Culture Pending Received 07/23/17 00:24 Blood Peripheral Anaerobic Blood Culture Pending Received Imaging Last Impressions Head CT 07/23/17 1800 Signed Impressions: Service Date/Time: Sunday, July 23, 2017 22:04 - CONCLUSION: 1. Large evolving infarct in the right MCA distribution with mild localized mass effect. No acute hemorrhage. No significant midline shift. Wilmar Olmstead MD Neck CTA [id number]/[id number] Signed Impressions: Service Date/Time: Saturday, July 22, 2017 22:51 - CONCLUSION: 1. Calcification in the proximal right internal carotid artery causing 50%% lumen narrowing. 2. Calcifications the origin of the great vessels from the aorta and in the left internal carotid artery with out significant luminal narrowing. Tino Lenz MD Head CTA [id number] Signed Impressions: Service Date/Time: Saturday, July 22, 2017 22:51 - CONCLUSION: No evidence of vessel truncation or aneurysm. Tino Lenz MD Cervical Spine CT [id number] Signed Impressions: Service Date/Time: Saturday, July 22, 2017 22:51 - CONCLUSION: 1. Degenerative changes throughout the cervical spine. 2. No evidence of compression deformity or spondylolisthesis. Tino Lenz MD Abdomen/Pelvis CT [id number] Signed Impressions: Service Date/Time: Saturday, July 22, 2017 22:51 - CONCLUSION: 1. Severe right hydronephrosis and hydroureter no calcified stones. Findings suggest obstruction at ureteral vesicle junction. Can not exclude a bladder mass. 2. Infrarenal abdominal aortic aneurysms measuring up to 3.7 cm. 3. Several small nodular densities in the anterior right lower lung, incompletely included in the [id number] of the exam. 4. Round low density lesion in the spleen. Tino Lenz MD Chest X-Ray 07/22/17 0000 Signed Impressions: Service Date/Time: Saturday, July 22, 2017 23:28 - CONCLUSION: Possible right infrahilar infiltrate. Tino Lenz MD . Patient/Family Conference Present at Family Conference: Met with patient (who wanted to be involved in conversation), (Nichelle), daughter (Nichelle Buckner) and grandson (Peterson). Also present Ashanti Villalobos LCSW. . Family Conference Time (mins): 90 Family Conference Location: Bedside Issues Discussed: * Palliative care role, purpose, approach * Additional medical, psychosocial, and spiritual history * Patients general health, functional status, and cognitive changes in the months leading up to the current hospitalization * Patient/family understanding of the current medical problems * Patient/family understanding of prognosis * Patients goals of care as best understood from advance directives and/or conversations and/or values * Current medical treatment options and benefits/burdens of those options * Likely scenarios comparing ongoing aggressive care with a transition to comfort measures only * Questions answered to the best of my ability * Palliative care contact information provided In summary, family was somewhat guarded regarding goals of care conversation in particular code status. Samina stated "we already told the doctor what his wishes would be." As the conversation continues they became more relaxed. They are very attentive to patient needs and hopeful for recovery. They seem realistic. They are very concerned about patient nutritional status, we reviewed possible need for NG tube vs PEG tube. They understand these are likely upcoming decisions. They are thankful for lengthy conversation and answering questions. We agreed to talk again tomorrow. Palliative care number provided. Assessment and Plan Disease Oriented Problem List: (1) Ischemic stroke (2) COPD exacerbation (3) Pneumonia (4) Hydronephrosis, right Symptom Scale: (1) Shortness of breath (2) Left-sided weakness (3) Dysphagia Pertinent Non-Medical Issues Psychosocial: to Nichelle for 68 years. 3 children, grandchildren and great grandchildren. Lives in [place], visits here a few months of the year. Spiritual: [employer]. Legal: Patient appears capacitated at this time, though I would recommend shared decision making. According to [place] statutes, should he lose capacity, health care proxy decision making would fall to his . Nichelle. Ethical issues impacting care: No known concerns at this time. . Important Contacts * Nichelle Nick, : [phone] * Andrew Nick grandson: [phone] . Prognosis Will discuss with neurology. Code Status: Alternative Code (Shock and ACLS) Plan * Patient appears capacitated at this time, though I would recommend shared decision making. According to [place] statutes, should he lose capacity, health care proxy decision making would fall to his . Nichelle. * Alternate Code - Shock and ACLS only. No chest compressions or intubation. * Family meeting: In summary, family was somewhat guarded regarding goals of care conversation in particular code status. Samina stated "we already told the doctor what his wishes would be." As the conversation continues they became more relaxed. They are very attentive to patient needs and hopeful for recovery. They seem realistic. They are very concerned about patient nutritional status, we reviewed possible need for NG tube vs PEG tube. They understand these are likely upcoming decisions. They are thankful for lengthy conversation and answering questions. We agreed to talk again tomorrow. * Palliative care number provided. * SYMPTOMS: Dysphagia: secondary to right MCA stroke, failed swallow eval, will monitor may need NG/PEG if no improvement. Family desires artificial nutrition if needed as of today. Left sided weakness: secondary to stroke. Will need PT/ OT and rehab if goals remain aggressive. Dyspnea: due to COPD and pneumonia. On oxygen via simple mask, labored respirations at rest. High risk for further decline, aspiration. Will monitor. * Palliative care will continue to follow to assist with communication, symptom management and clarification of goals. . Thank you for the opportunity to participate in the care of Mr. Nick. Attestation To help prompt me to consider important information that might be impacting today's encounter and assessment, information from prior notes written by myself or my colleagues may have been "brought forward" into today's note. My signature on this note, however, is an attestation that I personally performed the exam, history, and/or decision-making noted today, and, unless otherwise indicated, the interactions with patient, family, and staff as well as the review of records all occurred today. I also attest that the listed assessment and stated plan reflect my best clinical judgment today based on the combination of historical information, prior notes, and today's exam/ interactions. When time spent is documented, it refers only to time spent today by the signer, or if indicated, combined time spent today by collaborating physician/nurse practitioner. Yesenia Sosa Jul 24, 2017 09:51
[2017-07-24] MEDS: ASPIRIN 300 MG SUPP RECTAL SCH (10:50)
--- NOTE | 2017-07-24 12:16 | ECHRPT ---
Indication: cva/tia CONCLUSIONS Technically difficult study. Normal left ventricular size. Mild concentric left ventricular hypertrophy. The left ventricular systolic function is low normal with an estimated ejection fraction in the rang e of 50- 55%. The left ventricle is not well visualized. Aortic valve sclerosis is present. Trace aortic valve regurgitation. There is trace tricuspid valve regurgitation. The estimated pulmonary arterial pressure is 48 mmHg. The pulmonary valve is not well visualized. BP: 137 / 65 HR: 94 Rhythm: MEASUREMENTS (Male / Female) Normal Values Technical Quality:Technically difficult study 2D ECHO LV Diastolic Diameter PLAX 4.1 cm 4.2 - 5.9 / 3.9 - 5.3 cm LV Systolic Diameter PLAX 3.2 cm IVS Diastolic Thickness 1.1 cm 0.6 - 1.0 / 0.6 - 0.9 cm LVPW Diastolic Thickness 0.8 cm 0.6 - 1.0 / 0.6 - 0.9 cm LV Relative Wall Thickness 0.5 LA Systolic Diameter LX 4.0 cm 3.0 - 4.0 / 2.7 - 3.8 cm DOPPLER MV Peak Velocity 125.0 cm/s MV Peak Gradient 6.3 mmHg MV Mean Velocity 73.0 cm/s MV Mean Gradient 3.0 mmHg Mitral E Point Velocity 102.0 cm/s Mitral A Point Velocity 100.0 cm/s Mitral E to A Ratio 1.0 TR Peak Velocity 346.0 cm/s TR Peak Gradient 47.9 mmHg FINDINGS LEFT VENTRICLE Normal left ventricular size. Mild concentric left ventricular hypertrophy. The left ventricular systolic function is low normal with an estimated ejection fraction in the rang e of 50- 55%. The left ventricle is not well visualized. RIGHT VENTRICLE Normal right ventricular size and systolic function. LEFT ATRIUM The left atrial size is normal. RIGHT ATRIUM The right atrial size is normal. ATRIAL SEPTUM Normal atrial septal thickness without atrial level shunting by limited color doppler interrogation. AORTA The aortic root and proximal ascending aorta are normal in size on limited imaging. MITRAL VALVE Structurally normal mitral valve. No mitral valve stenosis or regurgitation. AORTIC VALVE Aortic valve sclerosis is present. Trace aortic valve regurgitation. TRICUSPID VALVE There is trace tricuspid valve regurgitation. The estimated pulmonary arterial pressure is 48 mmHg. PULMONARY VALVE The pulmonary valve is not well visualized. VESSELS The inferior vena cava is normal in size. PERICARDIUM No pericardial effusion. Jf Butcher MD, FACC (Electronically Signed) Final Date:24 July 2017 12:15
--- NOTE | 2017-07-24 16:22 | HHI.CCPN ---
Subjective Remarks/Hospital Course 86 year old male presents with a history of last being seen normal at approximately 9:30 PM while sitting on the couch watching television. The patient then proceeded to take a few large deep breaths and then fell face forward onto the carpeted floor. The patient was unable to get up. He was noted to have at that time a left facial droop, left upper and left lower extremity weakness. He has no prior history of stroke. He has a prior history of brain aneurysm status post clipping about 30 years ago. The patient is awake and alert and is able to follow commands although he does have slurred speech. The patient has a gaze deviation to the right with a palsy with attempting to look to the left. He also has a left-sided facial droop. Stroke alert was called and the case was discussed with Dr. Brown, the neurologist county demonstrator. Due to multiple comorbidities abdominal aneurysm and previous head bleed, the patient's family refused the administration of TPA. 07/24: Stable hemodynamics. 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 Urology Service opines that right ureter is no obstructed - no additional treatment unless creatinine rises. Objective Vital Signs Date Time Temp Pulse Resp B/P (MAP) Pulse Ox O2 Delivery O2 Flow Rate FiO2 07/24/17 14:00 93 07/24/17 12:00 100.1 20 166/65 (98) 95 07/24/17 09:57 Simple Mask 10.00 Intake and Output 07/24/17 07/24/17 07/25/17 08:00 16:00 00:00 Intake Total 1060.6 ml Output Total 425 ml Balance 635.6 ml Result Diagram: 07/24/17 0621 07/24/17 06 Imaging Last 24 hours Impressions Neck CTA 07/22/172236 Signed Impressions: Service Date/Time: Saturday, July 22, 2017 22:51 - CONCLUSION: 1. Calcification in the proximal right internal carotid artery causing 50%% lumen narrowing. 2. Calcifications the origin of the great vessels from the aorta and in the left internal carotid artery with out significant luminal narrowing. Tino Lenz MD Head CTA 07/22/172236 Signed Impressions: Service Date/Time: Saturday, July 22, 2017 22:51 - CONCLUSION: No evidence of vessel truncation or aneurysm. Tino Lenz MD Cervical Spine CT 07/22/172236 Signed Impressions: Service Date/Time: Saturday, July 22, 2017 22:51 - CONCLUSION: 1. Degenerative changes throughout the cervical spine. 2. No evidence of compression deformity or spondylolisthesis. Tino Lenz MD Abdomen/Pelvis CT 07/22/172236 Signed Impressions: Service Date/Time: Saturday, July 22, 2017 22:51 - CONCLUSION: 1. Severe right hydronephrosis and hydroureter no calcified stones. Findings suggest obstruction at ureteral vesicle junction. Can not exclude a bladder mass. 2. Infrarenal abdominal aortic aneurysms measuring up to 3.7 cm. 3. Several small nodular densities in the anterior right lower lung, incompletely included in the [id number] of the exam. 4. Round low density lesion in the spleen. Tino Lenz MD Objective Remarks GENERAL: Well-nourished, well-developed patient. SKIN: Warm and dry. HEAD: Forehead abrasions on the left side EYES: No scleral icterus. No injection or drainage. NECK: Supple, trachea midline. No JVD or lymphadenopathy. CARDIOVASCULAR: Regular rate and rhythm without murmurs, gallops, or rubs. RESPIRATORY: Breath sounds equal bilaterally. No accessory muscle use. GASTROINTESTINAL: Abdomen soft, non-tender, distended with some skin ecchymosis. MUSCULOSKELETAL: No cyanosis, or edema. BACK: Nontender without obvious deformity. NEURO EXAM:The patient has slurred speech. The patient has a left-sided facial droop. The patient has drift of the left upper and left lower extremity with strength testing, 4 over 5 in the left, 5 over 5 strength in the right upper and right lower extremity. The patient has a gaze palsy when attempting to gaze to the left side. He has decreased sensation to the left side. The patient is able to state his name and answer questions. A/P Assessment and Plan Acute CVA - No TPA administered due to AAA and family concerns - Aspirin Plavix per neurology - PT and OT as tolerated - Speech evaluation and treatment Aortic aneurysm - No intervention indicated - Blood pressure control - Supportive care Hydronephrosis - [place] not to be obstructed by Urologist. - Neurology consult COPD - DuoNeb scheduled and when necessary - No indication for steroids Coronary artery disease - Continue aspirin and Plavix DVT GI prophylaxis - Teds SCDs - Subcutaneous heparin - Pepcid Overall impression: Fixed right hemispheric ischemic stroke consistent with CT and physical exam. Gerber Ramsey MD Jul 24, 2017 16:22
--- NOTE | 2017-07-24 16:55 | EKG ---
Date Performed: 07/24/2017 Time Performed: 02:45:36 PTAGE: 86 years EKG: Regular supraventricular rhythm of uncertain mechanism. The mechanism cannot be determined because of the baseline artifact and a repeat tracing is advised. Lateral ST-T changes may be due to myocardial ischemia Low QRS voltages in limb leads Abnormal ECG PREVIOUS TRACING : 07/22/2017 22.30 Since the prior tracing, patient has developed more frequen t PVCs including couplets. When allowing for the artifact, there has been no other gross serial villavicencio e. DOCTOR: Mahogany French Interpretating Date/Time 07/24/2017 16:53:26
[2017-07-25] VITALS (13 sets, daily range): BP systolic 139–199; BP diastolic 71–112; PULSE 92–108; RESP 20–24; TEMP 97–99.9; O2SAT 93–99
[2017-07-25] MEDS: HEPARIN SODIUM - SQ 10,000 UNITS/ML VIAL SQ SCH ×3 (02:04→15:47)
[2017-07-25] MEDS: CHLORHEXIDINE GLUCONATE 2 % 1 PACK (2 CLOTHS) TOP SCH (04:00)
[2017-07-25] MEDS: RESP: ALBUTEROL 2.5 MG/IPRATROPIUM 0.5 MG NEB (SCH) NEB ×4 (05:03→20:20)
--- NOTE | 2017-07-25 07:30 | HHI.PR ---
Review/Management Diagnosis/Plan: (1) Ischemic stroke ICD Codes: I63.9 - Cerebral infarction, unspecified Status: Acute Plan: R MCA infarct ct brain naicp cta brain nml ct carotids rt carotid 50%, left carotid/arch- calcifications without significant stenosis 07/23 moderate to large rt mca infarct on repeat ct scan, ? rt mca hyperdense sign recs neuro unchanged. respiratory main issue. obtain pulm eval seen by palliative care d/w pt's grandson/. discussed prognosis. d/w rn swallow will be challenging with current resp state aspirin therapy (2) Pneumonia ICD Codes: J18.9 - Pneumonia, unspecified organism Status: Acute (3) COPD exacerbation ICD Codes: J44.1 - Chronic obstructive pulmonary disease with (acute) exacerbation Status: Acute Subjective Subjective Comments No acute events reported Active Medications Current Medications Medications (Trade) Dose Ordered Sig/Braden Route Start Time Stop Time Status Last Admin Sodium Chloride 1,000 ml @ 84 mls/hr [id number] IV 07/23/17 00:50 07/24/17 22:40 (NS Flush) 2 ml UNSCH PRN IV FLUSH 07/23/17 01:00 (NS Flush) 2 ml BID IV FLUSH 07/23/17 09:00 07/24/17 20:04 (Tylenol) 650 mg Q6H PRN PO 07/23/17 01:00 (Pepcid Inj) 20 mg Q12HR IV PUSH 07/23/17 09:00 07/24/17 20:04 (Zofran Inj) 4 mg Q6H PRN IV PUSH 07/23/17 01:00 (Duoneb Neb) 1 ampule Q2HR NEB PRN INH 07/23/17 01:00 (Heparin Inj) 5,000 units Q8H SQ 07/23/17 01:00 07/25/17 02:04 Miscellaneous Information 1 Q361D XX 07/23/17 01:00 (Chlorhexidine 2% Cloth) 3 pack Taper DAILY@04 TOP 07/23/17 04:00 07/19/18 03:59 (Chlorhexidine 2% Cloth) 3 pack UNSCH PRN TOP 07/23/17 01:00 (Lilliam-Colace) 1 tab BID PO 07/23/17 09:00 07/24/17 09:37 (Milk Of Magnesia Liq) 30 ml Q12H PRN PO 07/23/17 01:00 (Senokot) 17.2 mg Q12H PRN PO 07/23/17 01:00 (Dulcolax Supp) 10 mg DAILY PRN RECTAL 07/23/17 01:00 (Lactulose Liq) 30 ml DAILY PRN PO 07/23/17 01:00 (Apresoline Inj) 20 mg Q4H PRN IV PUSH 07/23/17 01:00 (Duoneb Neb) 1 ampule Q6HR NEB NEB 07/23/17 04:00 07/25/17 05:03 (Morphine Inj) 2 mg Q2H PRN IV 07/24/17 04:00 07/24/17 22:40 (Aspirin Supp) 300 mg DAILY RECTAL 07/24/17 09:30 07/24/17 10:50 Allergies Allergies Coded Allergies No Known Allergies ([id number]/12/17) Review of Systems All other ROS: ROS reviewed as documented in chart Exam I&O / VS Vital Signs Date Time Temp Pulse Resp B/P (MAP) Pulse Ox O2 Delivery O2 Flow Rate FiO2 07/25/17 04:00 97.0 92 20 185/77 (113) 99 07/25/17 00:00 93 07/25/17 00:00 97.3 97 20 176/71 (106) 96 07/24/17 23:17 96 Simple Mask 8.00 07/24/17 22:00 98.0 105 22 166/75 (105) 99 07/24/17 20:40 94 Simple Mask 8.00 07/24/17 18:00 100 07/24/17 16:00 88 07/24/17 16:00 99.2 88 16 155/78 (103) 88 07/24/17 14:00 93 07/24/17 12:00 100.1 98 20 166/65 (98) 95 07/24/17 12:00 98 07/24/17 10:00 100 07/24/17 09:57 94 Simple Mask 10.00 07/24/17 08:00 88 07/24/17 08:00 98.8 90 21 129/61 (83) 93 Exam Comments on non-rebreather, tachypneic, very dysarthric speech, follows, rt gaze, left facial droop, left ue 0/5, left leg 1-2/5 Objective Micro and Labs Date/Time Source Procedure Growth Status 07/23/17 00:24 Blood Peripheral Aerobic Blood Culture - Preliminary NO GROWTH IN 1 DAY Resulted 07/23/17 00:24 Blood Peripheral Anaerobic Blood Culture - Preliminary NO GROWTH IN 1 DAY Resulted Problem Qualifiers (1) Pneumonia: Qualified Codes: J18.9 - Pneumonia, unspecified organism Jose Hendrix MD Jul 25, 2017 07:30
[2017-07-25] MEDS: DOCUSATE SODIUM 50 MG/SENNA 8.6 MG TAB PO SCH ×2 (09:21→21:00)
[2017-07-25] MEDS: ASPIRIN 300 MG SUPP RECTAL SCH (09:21)
[2017-07-25] MEDS: FAMOTIDINE 20 MG/2 ML VIAL IV PUSH SCH ×2 (09:21→22:25)
[2017-07-25] MEDS: SODIUM CHLORIDE 0.9% FLUSH 10 ML FLUSH IV FLUSH SCH ×2 (09:22→21:00)
--- NOTE | 2017-07-25 09:32 | HHI.PR ---
Subjective Remarks Pt states his breathing a bit better. son and at bedside. Denies any pain. Wants to be moved to his right side. Difficult to understand him Discussed w RT who just saw pt and he is having some abdominal breathing as well. Pt receiving breathing treatment Objective Vitals Vital Signs Date Time Temp Pulse Resp B/P (MAP) Pulse Ox O2 Delivery O2 Flow Rate FiO2 07/25/17 08:57 Simple Mask 4.00 07/25/17 08:14 97.9 101 22 176/112 (133) 93 07/25/17 07:53 97 Simple Mask 4.00 07/25/17 07:20 97 Simple Mask 6.00 07/25/17 04:00 97.0 92 20 185/77 (113) 99 07/25/17 00:00 93 07/25/17 00:00 97.3 97 20 176/71 (106) 96 07/24/17 23:17 96 Simple Mask 8.00 07/24/17 22:00 98.0 105 22 166/75 (105) 99 07/24/17 20:40 94 Simple Mask 8.00 07/24/17 18:00 100 07/24/17 16:00 88 07/24/17 16:00 99.2 88 16 155/78 (103) 88 07/24/17 14:00 93 07/24/17 12:00 100.1 98 20 166/65 (98) 95 07/24/17 12:00 98 07/24/17 10:00 100 07/24/17 09:57 94 Simple Mask 10.00 I/O 07/24/17 07/24/17 07/24/17 07/25/17 07/25/17 07/25/17 07:00 15:00 23:00 07:00 15:00 23:00 Intake Total 1060.6 ml Output Total 425 ml Balance 635.6 ml Intake IV Total 1060.6 ml Output Urine Total 425 ml Stool Total 0 ml # Voids 3 4 # Bowel Movements 1 1 Result Diagram: 07/24/17 0621 07/24/1721 Imaging Last Impressions Head CT 07/23/17 1800 Signed Impressions: Service Date/Time: Sunday, July 23, 2017 22:04 - CONCLUSION: 1. Large evolving infarct in the right MCA distribution with mild localized mass effect. No acute hemorrhage. No significant midline shift. Wilmar Olmstead MD Neck CTA 07/22/172236 Signed Impressions: Service Date/Time: Saturday, July 22, 2017 22:51 - CONCLUSION: 1. Calcification in the proximal right internal carotid artery causing 50%% lumen narrowing. 2. Calcifications the origin of the great vessels from the aorta and in the left internal carotid artery with out significant luminal narrowing. Tino Lenz MD Head CTA 07/22/172236 Signed Impressions: Service Date/Time: Saturday, July 22, 2017 22:51 - CONCLUSION: No evidence of vessel truncation or aneurysm. Tino Lenz MD Cervical Spine CT 07/22/172236 Signed Impressions: Service Date/Time: Saturday, July 22, 2017 22:51 - CONCLUSION: 1. Degenerative changes throughout the cervical spine. 2. No evidence of compression deformity or spondylolisthesis. Tino Lenz MD Abdomen/Pelvis CT 07/22/172236 Signed Impressions: Service Date/Time: Saturday, July 22, 2017 22:51 - CONCLUSION: 1. Severe right hydronephrosis and hydroureter no calcified stones. Findings suggest obstruction at ureteral vesicle junction. Can not exclude a bladder mass. 2. Infrarenal abdominal aortic aneurysms measuring up to 3.7 cm. 3. Several small nodular densities in the anterior right lower lung, incompletely included in the [id number]-qc-[id number] of the exam. 4. Round low density lesion in the spleen. Tino Lenz MD Chest X-Ray 07/22/17 0000 Signed Impressions: Service Date/Time: Saturday, July 22, 2017 23:28 - CONCLUSION: Possible right infrahilar infiltrate. Tino Lenz MD Objective Remarks GENERAL: elderly male w aphasia, on simple mask 4L SKIN: Warm and dry. HEAD: Forehead abrasions on the left side EYES: No scleral icterus. No injection or drainage. NECK: trachea midline. CARDIOVASCULAR: Regular rate and rhythm without murmurs . RESPIRATORY: exp wheezes throughout, abdominal breathing noted GASTROINTESTINAL: Abdomen soft, non-tender, distended with some skin ecchymosis. MUSCULOSKELETAL:no edema NEURO EXAM:The patient has slurred speech/aphasia. The patient has a left- sided facial droop. The patient cannot move left upper extremity, some movement 1/5 in the left lower, no problems moving this right side. A/P Assessment and Plan Acute CVA - No TPA administered due to AAA and family concerns - Aspirin per neurology - PT, ST and OT as tolerated - For now continue to keep NPO as pt has failed swallow eval. Pt wants to eat. continue aggressive therapy Discussed w neurology regarding BP goals and new goal is 180/100 w trying to keep him around 160's ? PNA Pt's respiratory status seems to be worst as pt is having some abdominal breathing Check ABG, repeat Chest x-ray, initial chest x-ray was concerning for infiltrates. Will start him on rocephin/azithro, pulm consult in place. Aortic aneurysm - No intervention indicated - Blood pressure control however due to stroke try to keep BP around 160's - Supportive care Hydronephrosis - [place] not to be obstructed by Urologist. - urologist evaluated the patient, per their recs If his clinical picture worsens or Creatinine start to rise, then they could do Lasix Renogram versus cystoscopy, retrograde pyelogram to r/o obstruction. Monitor Cr function COPD - DuoNeb scheduled and when necessary - No indication for steroids Coronary artery disease - Continue aspirin and Plavix DVT GI prophylaxis - Teds SCDs - Subcutaneous heparin - Pepcid Discharge Planning f/u ABG/chest x-ray. Palliative care following. Pt currently NPO. f/u ST recs. As of now pt is alternative code Keep BPs in the 160's Jackelyn Dailey MD Jul 25, 2017 09:32
[2017-07-25 09:53] LABS: BLOOD GAS HCO3 20 mmol/L (22-26); BLOOD GAS PCO2 36 mmHg (38-42); TEMP CORR TO 98.6
[2017-07-25 09:56] LABS: BLOOD GAS O2 HGB SATURATION 93 % (90-100); DRAW SITE RT RADIAL; LITER FLOW 4 L/M; NUMBER OF ARTERIAL PUNCTURES 1; OXYGEN DEVICE MASK; STAT YES; ULNAR PULSE PRESENT
[2017-07-25] MEDS: SODIUM CHLOR 0.9% 1000 ML INJ 1,000 ML IV SCH ×2 (09:57→22:25)
[2017-07-25] MEDS: cefTRIAXone INJ 1,000 MG in SODIUM CHLORIDE 0.9% INJ 100 ML IV SCH (09:58)
--- NOTE | 2017-07-25 10:20 | RADRPT ---
EXAM DATE/TIME: 07/25/2017 09:35 [facility] COMPARISON: CHEST SINGLE AP, July 22, 2017, 23:28. INDICATIONS : Congestion, short of breath. MEDICAL HISTORY : Stroke. Cardiovascular disease. Cerebrovascular disease. SURGICAL HISTORY : Pacemaker. ENCOUNTER: Initial ACUITY: 3 days PAIN SCORE: Non-responsive. LOCATION: Bilateral chest FINDINGS: There is a mild right middle lobe infiltrate. Otherwise, the lungs are grossly clear. No significant changes are seen compared to the prior study. No definite pleural effusions. The heart size is within normal limits. The bony structures are grossly intact. CONCLUSION: Mild right middle lobe infiltrate. No significant changes compared to the prior study. Sunil Kennedy MD on July 25, 2017 at 10:17 Board Certified Radiologist. This report was verified electronically.
[2017-07-25] MEDS: AZITHROMYCIN INJ 500 MG in SODIUM CHLOR 0.9% 250 ML INJ 250 ML IV SCH (11:22)
[2017-07-25 12:32] LABS: BLOOD GAS PO2 80 mmHg (61-120)
[2017-07-25 12:34] LABS: CRITICAL VALUE NO
[2017-07-25] MEDS: MORPHINE SULFATE 2 MG/ML INJ IV PRN (15:32)
[2017-07-25] MEDS: ENALAPRILAT 1.25 MG/ML VIAL IV PUSH PRN (15:47)
[2017-07-25] MEDS ORDERED: AZITHROMYCIN INJ 250 MG in SODIUM CHLOR 0.9% 250 ML INJ 250 ML IV SCH (16:00)
[2017-07-25] MEDS ORDERED: cefTRIAXone INJ 1,000 MG in SODIUM CHLORIDE 0.9% INJ 100 ML IV SCH (16:00)
--- NOTE | 2017-07-25 16:10 | MB ---
cc: WENDI ADAME M.D. DATE OF CONSULTATION 07/25/2017 REASON FOR CONSULTATION Pneumonia. HISTORY OF PRESENT ILLNESS Mr. Nick is an 86-year-old male with known history of COPD, hypertension and coronary artery disease and previous aneurysm clipping about 30 years ago. The patient was admitted with acute cerebrovascular accident. His chest x-ray reveals a right mid lung infiltrate and I am asked to see him at this time for same. He has no shortness of breath, fever, chills, cough or expectoration. He does require oxygen therapy. PAST MEDICAL HISTORY 1. COPD. 2. Coronary artery disease. 3. Prostate cancer. 4. Acid reflux disease. 5. Hyperlipidemia. 6. Previous history of GI bleed. PAST SURGICAL HISTORY 1. Umbilical hernia repair. 2. Prostatectomy for prostate cancer. 3. T&A as a child. 4. 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 5. Back surgery. 6. Previous craniotomy. MEDICATIONS 1. DuoNeb. 2. Pepcid. 3. Lactulose. 4. Apresoline. ALLERGIES None known to medication FAMILY HISTORY Noncontributory. SOCIAL HISTORY Remote smoking history, not at present. REVIEW OF SYSTEMS 12-point review of systems as per HPI and past history, otherwise negative. PHYSICAL EXAMINATION VITAL SIGNS: Temperature 99, pulse 90, respirations 22, blood pressure . HEENT: Exam unremarkable. Eyes without icterus. NECK: Without adenopathy or thyroid enlargement. CHEST: No dullness to percussion. A few scattered rhonchi at bases. CARDIAC: PMI distant. S1, S2 audible. No murmur or rub. ABDOMEN: Lax. Audible bowel sounds. EXTREMITIES: No clubbing, cyanosis or edema. IMAGING CT of the brain: Large right MCA infarct. Chest x-ray: Faint right mid lung infiltrate. LABORATORY White count 5.8, hemoglobin 12, hematocrit 37, platelets 117,000. Sodium 144, potassium 3.9, BUN 14, creatinine 1.3. IMPRESSION 1. Acute CVA. 2. Pneumonia. 3. COPD. 4. Coronary artery disease. 5. Prostate cancer. PLAN The patient will be maintained on oxygen therapy as needed. Chest x-ray will be followed until clear. Antibiotic therapy instituted. I do thank you for asking me to partake in Mr. Nick's care. MD OSWALD Mckeon/FREDRICK /3:36 PM /3:44 PM
[2017-07-25] MEDS ORDERED: LABETALOL HCL 100 MG/20 ML VIAL IV PUSH PRN (17:15)
--- NOTE | 2017-07-25 17:40 | HHI.HCPN ---
Reason for visit a. To assist with evaluation and management of symptoms including: dyspnea, left sided weakness, dysphagia. b. To assist medical decision maker(s) with: better understanding of current medical conditions; weighing benefits/burdens of medical treatment options; making medical treatment decisions. . Subjective/Interval History Patient seen and examined in room. and son at bedside. Patient is awake and alert. He denies pain. He reports shortness of breath intermittently. He feel better since breathing treatment. Breathing mildly labored at rest. Has PRN Morphine 2mg IV every 2 hours PRN. Has had 3 doses in the past 24 hours. Afebrile. HR 90-105. Hypertensive BP 199/84. On Vasotec. PRN Hydralazine ordered. Chest xray with mild right middle lobe infiltrate. On Azithromycin and Ceftriaxone. No new labs. Left side remains flaccid. He denies pain. He tells me his mouth is dry. He was asking for food earlier. He and family understand why he remains NPO. Discussed with Dr. Dailey, plan for transfer to 4th floor for monitoring. Will need NG tube for meds and nutrition, based on conversations goals remain aggressive. . Family/friend interactions and son at bedside. Goals remain aggressive. Questions answered. . Advance Directives Living Will: Never completed Health Care Surrogate: Never completed Durable Power of Clay Modeler: Never completed Advance Directive Specifics Health Care Surrogate(s): Patient appears capacitated at this time, though I would recommend shared decision making. According to [place] statutes, should he lose capacity, health care proxy decision making would fall to his . Nichelle. . Significant change in goals: Alternate Code: Shock and ACLS only. Goals remain aggressive. . Objective Vital Signs Date Time Temp Pulse Resp B/P (MAP) Pulse Ox O2 Delivery O2 Flow Rate FiO2 07/25/17 16:28 99.1 96 22 199/84 (122) 93 07/25/17 14:34 102 07/25/17 12:19 99.1 92 22 166/71 (102) 97 07/25/17 11:28 105 07/25/17 08:57 Simple Mask 4.00 07/25/17 08:14 97.9 101 22 176/112 (133) 93 07/25/17 07:53 97 Simple Mask 4.00 07/25/17 07:20 97 Simple Mask 6.00 07/25/17 04:00 97.0 92 20 185/77 (113) 99 07/25/17 00:00 93 07/25/17 00:00 97.3 97 20 176/71 (106) 96 07/24/17 23:17 96 Simple Mask 8.00 07/24/17 22:00 98.0 105 22 166/75 (105) 99 07/24/17 20:40 94 Simple Mask 8.00 07/24/17 18:00 100 Intake & Output 07/25/17 07/25/17 07:00 19:00 Output Total 325 ml Balance -325 ml Output Urine Total 325 ml # Voids 4 # Bowel Movements 1 Physical Exam CONSTITUTIONAL/GENERAL: This is an adequately nourished patient, awakens and communicates with slurred speech. TUBES/LINES/DRAINS:O2 simple mask, PIV bilaterally, SCDs SKIN: No jaundice, rashes, or lesions. Ecchymoses on upper extremities. No wounds seen anteriorly. Skin temperature appropriate. Not diaphoretic. EYES: Verbalizes difficulty opening eyes all the way. No scleral icterus. No injection or drainage. CARDIOVASCULAR: Tachycardic. RESPIRATORY/CHEST: Labored respirations at rest, using accessory muscles, diminished breath sounds. Expiratory wheeze. GASTROINTESTINAL: Abdomen soft, non-tender, distended. No guarding. Bowel sounds present. GENITOURINARY: Without palpable bladder distension. MUSCULOSKELETAL: Extremities without clubbing, cyanosis, or edema. No mottling or clubbing. NEUROLOGICAL: Awakens, oriented. Left facial droop. Left upper and lower extremity weakness. PSYCHIATRIC: No obvious anxiety/depression. . Diagnostic Tests Laboratory Laboratory Tests Test 07/22/17 22:28 07/23/17 03:10 07/23/17 11:50 07/23/17 18:15 White Blood Count 5.9 TH/MM3 (4.0-11.0) Red Blood Count 4.49 MIL/MM3 (4.50-5.90) Hemoglobin 13.9 GM/DL (13.0-17.0) Bedside Hemoglobin 14.3 G/DL (12.0-17.0) Hematocrit 42.0 % (39.0-51.0) Bedside Hematocrit 42.0 % (38.0-51.0) Mean Corpuscular Volume 93.6 FL (80.0-100.0) Mean Corpuscular Hemoglobin 31.1 PG (27.0-34.0) Mean Corpuscular Hemoglobin Concent 33.2 % (32.0-36.0) Red Cell Distribution Width 13.5 % (11.6-17.2) Platelet Count 134 TH/MM3 (150-450) Mean Platelet Volume 8.4 FL (7.0-11.0) Neutrophils (%) (Auto) 59.1 % (16.0-70.0) Lymphocytes (%) (Auto) 29.4 % (9.0-44.0) Monocytes (%) (Auto) 7.1 % (0.0-8.0) Eosinophils (%) (Auto) 3.9 % (0.0-4.0) Basophils (%) (Auto) 0.5 % (0.0-2.0) Neutrophils # (Auto) 3.5 TH/MM3 (1.8-7.7) Lymphocytes # (Auto) 1.7 TH/MM3 (1.0-4.8) Monocytes # (Auto) 0.4 TH/MM3 (0-0.9) Eosinophils # (Auto) 0.2 TH/MM3 (0-0.4) Basophils # (Auto) 0.0 TH/MM3 (0-0.2) CBC Comment DIFF FINAL Differential Comment Prothrombin Time 12.2 SEC (9.8-11.6) Prothromb Time International Ratio 1.2 RATIO Activated Partial Thromboplast Time 25.9 SEC (24.3-30.1) Fibrinogen 488 mg/dL (227-377) Bedside Sodium 143 MMOL/L (138-146) Bedside Potassium 4.5 MMOL/L (3.5-4.9) Bedside Chloride 105 MMOL/L (98-109) Bedside Blood Urea Nitrogen 29 MG/DL (8-26) Bedside Creatinine 1.7 MG/DL (0.8-1.3) Bedside Glucose 97 MG/DL (60-95) Total Creatine Kinase 72 U/L (39-308) Troponin I 0.02 NG/ML (0.02-0.05) Nasal Screen MRSA (PCR) MRSA NOT DETECTED (NOT Hemoglobin A1c 5.3 % (4.3-6.0) Triglycerides Level 72 MG/DL (42-150) Cholesterol Level 131 MG/DL (120-200) LDL Cholesterol 57 MG/DL (0-99) HDL Cholesterol 59.3 MG/DL (40.0-60.0) Cholesterol/HDL Ratio 2.20 RATIO Urine Color YELLOW (YELLW/STRAW) Urine Turbidity CLEAR (CLEAR) Urine pH 5.0 (5.0-8.5) Urine Specific [place] 1.025 (1.002-1.035) Urine Protein TRACE mg/dL (NEG-TRACE) Urine Glucose (UA) NEG mg/dL (NEG) Urine Ketones NEG mg/dL (NEG) Urine Occult Blood TRACE (NEG) Urine Nitrite NEG (NEG) Urine Bilirubin NEG (NEG) Urine Urobilinogen LESS THAN 2.0 MG/DL (LESS Urine Leukocyte Esterase NEG (NEG) Urine RBC 2 /hpf (0-3) Urine WBC 1 /hpf (0-5) Urine Amorphous Sediment RARE Urine Bacteria RARE /hpf (NONE) Urine Mucus FEW /lpf (OCC) Urine Opiates Screen NEG (NEG) Urine Barbiturates Screen NEG (NEG) Urine Amphetamines Screen NEG (NEG) Urine Benzodiazepines Screen NEG (NEG) Urine Cocaine Screen NEG (NEG) Urine Cannabinoids Screen NEG (NEG) Test 07/24/17 06:21 07/25/17 09:43 White Blood Count 5.8 TH/MM3 (4.0-11.0) Red Blood Count 3.98 MIL/MM3 (4.50-5.90) Hemoglobin 12.6 GM/DL (13.0-17.0) Hematocrit 37.0 % (39.0-51.0) Mean Corpuscular Volume 93.0 FL (80.0-100.0) Mean Corpuscular Hemoglobin 31.5 PG (27.0-34.0) Mean Corpuscular Hemoglobin Concent 33.9 % (32.0-36.0) Red Cell Distribution Width 13.7 % (11.6-17.2) Platelet Count 117 TH/MM3 (150-450) Mean Platelet Volume 8.3 FL (7.0-11.0) Neutrophils (%) (Auto) 81.6 % (16.0-70.0) Lymphocytes (%) (Auto) 9.1 % (9.0-44.0) Monocytes (%) (Auto) 8.9 % (0.0-8.0) Eosinophils (%) (Auto) 0.0 % (0.0-4.0) Basophils (%) (Auto) 0.4 % (0.0-2.0) Neutrophils # (Auto) 4.8 TH/MM3 (1.8-7.7) Lymphocytes # (Auto) 0.5 TH/MM3 (1.0-4.8) Monocytes # (Auto) 0.5 TH/MM3 (0-0.9) Eosinophils # (Auto) 0.0 TH/MM3 (0-0.4) Basophils # (Auto) 0.0 TH/MM3 (0-0.2) CBC Comment DIFF FINAL Differential Comment Blood Urea Nitrogen 14 MG/DL (7-18) Creatinine 1.36 MG/DL (0.60-1.30) Random Glucose 106 MG/DL (74-106) Total Protein 6.4 GM/DL (6.4-8.2) Albumin 2.8 GM/DL (3.4-5.0) Calcium Level 7.9 MG/DL (8.5-10.1) Phosphorus Level 2.5 MG/DL (2.5-4.9) Magnesium Level 2.0 MG/DL (1.5-2.5) Alkaline Phosphatase 57 U/L (45-117) Aspartate Amino Transf (AST/SGOT) 22 U/L (15-37) Alanine Aminotransferase (ALT/SGPT) 15 U/L (12-78) Total Bilirubin 0.5 MG/DL (0.2-1.0) Sodium Level 144 MEQ/L (136-145) Potassium Level 3.9 MEQ/L (3.5-5.1) Chloride Level 112 MEQ/L (98-107) Carbon Dioxide Level 23.9 MEQ/L (21.0-32.0) Anion Gap 8 MEQ/L (5-15) Estimat Glomerular Filtration Rate 50 ML/MIN (>89) Blood Gas Puncture Site RT RADIAL Blood Gas Patient Temperature 98.6 Blood Gas HCO3 20 mmol/L (22-26) Blood Gas Base Excess -4.0 mmol/L (-2-2) Blood Gas Oxygen Saturation 93 % (90-100) Arterial Blood pH 7.37 (7.380-7.420) Arterial Blood Partial Pressure CO2 36 mmHg (38-42) Arterial Blood Partial Pressure O2 80 mmHg (61-120) Arterial Blood Oxygen Content Vol % (12.0-20.0) Arterial Blood Carboxyhemoglobin % (0-4) Arterial Blood Methemoglobin % (0-2) Oxygen Delivery Device MASK Blood Gas Liter Flow 4 L/M Result Diagram: 07/24/1762007/24/17620 Microbiology Microbiology Date/Time Source Procedure Growth Status 07/23/17 00:24 Blood Peripheral Aerobic Blood Culture - Preliminary NO GROWTH IN 2 DAYS Resulted 07/23/17 00:24 Blood Peripheral Anaerobic Blood Culture - Preliminary NO GROWTH IN 2 DAYS Resulted 07/23/17 00:24 Blood Peripheral Aerobic Blood Culture - Preliminary NO GROWTH IN 2 DAYS Resulted 07/23/17 00:24 Blood Peripheral Anaerobic Blood Culture - Preliminary NO GROWTH IN 2 DAYS Resulted . Imaging Last Impressions Chest X-Ray 07/25/17909 Signed Impressions: Service Date/Time: Tuesday, July 25, 2017 09:35 - CONCLUSION: Mild right middle lobe infiltrate. No significant changes compared to the prior study. Sunil Kennedy MD Head CT 07/23/17 1800 Signed Impressions: Service Date/Time: Sunday, July 23, 2017 22:04 - CONCLUSION: 1. Large evolving infarct in the right MCA distribution with mild localized mass effect. No acute hemorrhage. No significant midline shift. Wilmar Olmstead MD Neck CTA 07/22/172236 Signed Impressions: Service Date/Time: Saturday, July 22, 2017 22:51 - CONCLUSION: 1. Calcification in the proximal right internal carotid artery causing 50%% lumen narrowing. 2. Calcifications the origin of the great vessels from the aorta and in the left internal carotid artery with out significant luminal narrowing. Tino Lenz MD Head CTA 07/22/172236 Signed Impressions: Service Date/Time: Saturday, July 22, 2017 22:51 - CONCLUSION: No evidence of vessel truncation or aneurysm. Tino Lenz MD Cervical Spine CT 07/22/172236 Signed Impressions: Service Date/Time: Saturday, July 22, 2017 22:51 - CONCLUSION: 1. Degenerative changes throughout the cervical spine. 2. No evidence of compression deformity or spondylolisthesis. Tino Lenz MD Abdomen/Pelvis CT 07/22/172236 Signed Impressions: Service Date/Time: Saturday, July 22, 2017 22:51 - CONCLUSION: 1. Severe right hydronephrosis and hydroureter no calcified stones. Findings suggest obstruction at ureteral vesicle junction. Can not exclude a bladder mass. 2. Infrarenal abdominal aortic aneurysms measuring up to 3.7 cm. 3. Several small nodular densities in the anterior right lower lung, incompletely included in the [id number] of the exam. 4. Round low density lesion in the spleen. Tino Lenz MD . Assessment and Plan Disease Oriented Problem List: (1) Ischemic stroke (2) COPD exacerbation (3) Pneumonia (4) Hydronephrosis, right Symptom Scale: (1) Shortness of breath 0-10 Scale: Unable to quantify (2) Left-sided weakness 0-10 Scale: Unable to quantify (3) Dysphagia 0-10 Scale: Unable to quantify Pertinent Non-Medical Issues Psychosocial: to Nichelle for 68 years. 3 children, grandchildren and great grandchildren. Lives in [place], visits here a few months of the year. Spiritual: [employer] [place]. Legal: Patient appears capacitated at this time, though I would recommend shared decision making. According to [place] statutes, should he lose capacity, health care proxy decision making would fall to his Eamon Steward. Ethical issues impacting care: No known concerns at this time. . Important Contacts * Nichelle Nick, : [phone] * Andrew Nick, grandson: [phone] . Prognosis Mr. Nick is a 86 year old male with history of CAD, COPD and other comorbidities admitted with large right MCA stroke with dysphagia and left sided weakness. He remains high risk for aspiration and further decline. . Code Status: Alternative Code (Shock and ACLS) Plan * Patient appears capacitated at this time, though I would recommend shared decision making. According to [place] statutes, should he lose capacity, health care proxy decision making would fall to his Eamon Steward. * Alternate Code - Shock and ACLS only. No chest compressions or intubation. * Goals: Remain aggressive including NG placement for meds/ feeding short of alternate code status. * SYMPTOMS: Dysphagia: secondary to right MCA stroke, failed swallow eval, will monitor may need NG/PEG if no improvement. Family desires artificial nutrition if needed as of today. Left sided weakness: secondary to stroke. Will need PT/ OT and rehab if goals remain aggressive. Dyspnea: due to COPD and pneumonia. On oxygen via simple mask, labored respirations at rest. High risk for further decline, aspiration. Will monitor. * Palliative care will continue to follow to assist with communication, symptom management and clarification of goals. . Yesenia Sosa Jul 25, 2017 17:40
[2017-07-25] MEDS ORDERED: ENALAPRILAT 1.25 MG/ML VIAL IV PUSH ONE (18:00)
[2017-07-25] MEDS: RESP: ALBUTEROL 2.5 MG/IPRATROPIUM 0.5 MG NEB (PRN) INH ×2 (20:50→22:04)
[2017-07-25] MEDS ORDERED: methylPREDNISolone SOD SUCC 125 MG/2 ML VIAL IV PUSH ONE (21:00)
[2017-07-25 21:01] LABS: BLOOD GAS BASE EXCESS -5.3 mmol/L (-2-2); BLOOD GAS CARBOXYHEMOGLOBIN 0.7 % (0-4); BLOOD GAS HCO3 22 mmol/L (22-26); BLOOD GAS O2 HGB SATURATION 93 % (90-100); BLOOD GAS PCO2 64 mmHg (38-42); BLOOD GAS PO2 95 mmHg (61-120); BLOOD GAS TOTAL HGB 13.6 G/DL (12.0-16.0); CRITICAL VALUE YES; TEMP CORR TO 98.6
[2017-07-25 21:02] LABS: DRAW SITE LT RADIAL; LITER FLOW 8 L/M; NUMBER OF ARTERIAL PUNCTURES 1; OXYGEN DEVICE SIMPLE MASK; STAT YES; ULNAR PULSE PRESENT
--- NOTE | 2017-07-25 21:22 | HHI.CCPN ---
Subjective Remarks/Hospital Course 86 year old male presents with a history of last being seen normal at approximately 9:30 PM while sitting on the couch watching television. The patient then proceeded to take a few large deep breaths and then fell face forward onto the carpeted floor. The patient was unable to get up. He was noted to have at that time a left facial droop, left upper and left lower extremity weakness. He has no prior history of stroke. He has a prior history of brain aneurysm status post clipping about 30 years ago. The patient is awake and alert and is able to follow commands although he does have slurred speech. The patient has a gaze deviation to the right with a palsy with attempting to look to the left. He also has a left-sided facial droop. Stroke alert was called and the case was discussed with Dr. Brown, the neurologist marketing regional consultant. Due to multiple comorbidities abdominal aneurysm and previous head bleed, the patient's family refused the administration of TPA. 07/24: Stable hemodynamics. 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 Urology Service opines that right ureter is no obstructed - no additional treatment unless creatinine rises. 07/25: COPD exacerbation with air trapping and respiratory acidosis. Patient is DNI status but family requests continued aggressive care otherwise. Will transfer to ICU and start BiPAP, steroids, dilators. Objective Vital Signs Date Time Temp Pulse Resp B/P (MAP) Pulse Ox O2 Delivery O2 Flow Rate FiO2 07/25/17 20:22 93 Venturi Mask 6.00 40 07/25/17 18:06 95 07/25/17 17:34 161/81 (107) 07/25/17 16:28 99.1 22 Intake and Output 07/25/17 07/25/17 07/26/17 08:00 16:00 00:00 Output Total 325 ml Balance -325 ml Result Diagram: 07/24/17 0621 07/24/17 06 Other Results Laboratory Tests Test 07/25/17 09:43 07/25/17 20:55 Blood Gas Puncture Site RT RADIAL LT RADIAL Blood Gas Patient Temperature 98.6 98.6 Blood Gas HCO3 20 mmol/L (22-26) 22 mmol/L (22-26) Blood Gas Base Excess -4.0 mmol/L (-2-2) -5.3 mmol/L (-2-2) Blood Gas Oxygen Saturation 93 % (90-100) 93 % (90-100) Arterial Blood pH 7.37 (7.380-7.420) 7.17 (7.380-7.420) Arterial Blood Partial Pressure CO2 36 mmHg (38-42) 64 mmHg (38-42) Arterial Blood Partial Pressure O2 80 mmHg (61-120) 95 mmHg (61-120) Arterial Blood Oxygen Content Vol % (12.0-20.0) 18.0 Vol % (12.0-20.0) Arterial Blood Carboxyhemoglobin % (0-4) 0.7 % (0-4) Arterial Blood Methemoglobin % (0-2) 1.0 % (0-2) Oxygen Delivery Device MASK SIMPLE MASK Blood Gas Liter Flow 4 L/M 8 L/M Blood Gas Hemoglobin 13.6 G/DL (12.0-16.0) Imaging Last 24 hours Impressions Neck CTA 07/22/172236 Signed Impressions: Service Date/Time: Saturday, July 22, 2017 22:51 - CONCLUSION: 1. Calcification in the proximal right internal carotid artery causing 50%% lumen narrowing. 2. Calcifications the origin of the great vessels from the aorta and in the left internal carotid artery with out significant luminal narrowing. Tino Lenz MD Head CTA 07/22/172236 Signed Impressions: Service Date/Time: Saturday, July 22, 2017 22:51 - CONCLUSION: No evidence of vessel truncation or aneurysm. Tino Lezn MD Cervical Spine CT 07/22/172236 Signed Impressions: Service Date/Time: Saturday, July 22, 2017 22:51 - CONCLUSION: 1. Degenerative changes throughout the cervical spine. 2. No evidence of compression deformity or spondylolisthesis. Tino Lenz MD Abdomen/Pelvis CT 07/22/172236 Signed Impressions: Service Date/Time: Saturday, July 22, 2017 22:51 - CONCLUSION: 1. Severe right hydronephrosis and hydroureter no calcified stones. Findings suggest obstruction at ureteral vesicle junction. Can not exclude a bladder mass. 2. Infrarenal abdominal aortic aneurysms measuring up to 3.7 cm. 3. Several small nodular densities in the anterior right lower lung, incompletely included in the [id number] of the exam. 4. Round low density lesion in the spleen. Tino Lenz MD Objective Remarks GENERAL: Well-nourished, well-developed patient. SKIN: Warm and dry. HEAD: Forehead abrasions on the left side EYES: No scleral icterus. No injection or drainage. NECK: Supple, trachea midline. CARDIOVASCULAR: Regular rate and rhythm without murmurs, gallops, or rubs. RESPIRATORY: Tight wheezes and poor bilateral air movement. GASTROINTESTINAL: Abdomen soft, non-tender, distended with some skin ecchymosis. MUSCULOSKELETAL: No cyanosis, or edema. NEURO EXAM: Slurred speech, left-sided facial droop. The patient has a gaze palsy when attempting to gaze to the left side. Respiratory distress and anxiety. A/P Assessment and Plan Acute CVA - No TPA administered due to AAA and family concerns - Aspirin Plavix per neurology - PT and OT as tolerated - Speech evaluation and treatment Aortic aneurysm - No intervention indicated - Blood pressure control - Supportive care Hydronephrosis - [place] not to be obstructed by Urologist. - Neurology consult COPD, exacerbated with respiratory acidosis - DuoNeb scheduled and when necessary - Antibiotic coverage for bronchitis - Steroids iv Coronary artery disease - Continue aspirin and Plavix DVT GI prophylaxis - Teds SCDs - Subcutaneous heparin - Pepcid Overall impression: Critically ill following acute CVA, now with exacerbated COPD and respiratory failure. Critical Care 38 mins Gerber Ramsey MD Jul 25, 2017 21:22
--- NOTE | 2017-07-25 21:28 | HHI.FPPN ---
Addendum to progress note ADDENDUM Reason for addendum: Additonal documentation Additional information [facility] NOTE Subjective: Residents responded to a [facility] page around 9 PM. Patient is a 86y/o male that was admitted to the hospital for acute stroke presenting now with acute respiratory failure. Objective: VITALS: T 99.9, BP and 139/81, HR 108, 02 sat 93% on 6 L O2 General: Elderly gentleman in acute respiratory distress, nebulizer mask in place Cardiac: Tachycardic Respiratory: Inspiratory and expiratory wheezes with poor air movement Abdomen: Nondistended, using abdominal muscles for respiration MSK: No cyanosis or edema Neuro: Alert, not oriented due to distress Assessment: 86-year-old male in acute respiratory distress. Differential diagnosis includes COPD exacerbation, pneumonia exacerbation, pulmonary edema and aspiration pneumonia. Patient was currently nothing by mouth due to failing his swallow test but per review of EMR documentation, he wanted to eat. Plan: -DuoNeb nebulizer -Solu-Medrol 125 mg IV -EKG -Chest x-ray -CBC -CMP -Troponin 1 -ABG - pH 7.17 compared to earlier pH of 7.37 at 9:43 AM -Transfer to the ICU for BiPAP with hotel security officer consultation Seen and examined with Dr. Zelaya, PGY-1 Meera Okeefe MD R2 Jul 25, 2017 21:28
--- NOTE | 2017-07-25 21:42 | RADRPT ---
EXAM DATE/TIME: 07/25/2017 21:12 [facility] COMPARISON: CHEST SINGLE AP, July 25, 2017, 9:35. INDICATIONS : Shortness of breath MEDICAL HISTORY : Stroke. Cardiovascular disease. Cerebrovascular disease SURGICAL HISTORY : Pacemaker. ENCOUNTER: Initial ACUITY: 1 day PAIN SCORE: Non-responsive. LOCATION: Bilateral chest FINDINGS: A single view of the chest demonstrates the lungs to be symmetrically aerated without evidence of mas s, infiltrate or effusion. Mild basilar atelectasis. The cardiomediastinal contours are unremarkable. Osseous structures are intact. CONCLUSION: 1. Mild basilar atelectasis. No effusion or pneumothorax. Wilmar Olmstead MD on July 25, 2017 at 21:39 Board Certified Radiologist. This report was verified electronically.
--- NOTE | 2017-07-25 22:21 | EKG ---
Date Performed: 07/25/2017 Time Performed: 21:09:54 PTAGE: 86 years EKG: Sinus tachycardia Possible anterior infarct - age undetermined Low QRS voltages in limb tashi ds Baseline artefact Abnormal ECG PREVIOUS TRACING : 07/24/2017 02.45 No significant change from previous tracing noted. DOCTOR: Tc Duarte Interpretating Date/Time 07/25/2017 22:20:51
[2017-07-25 22:25] LABS: HEMATOCRIT 40.1 % (39.0-51.0); MEAN CELL VOLUME 95.6 FL (80.0-100.0); MEAN CORPUSCULAR HEMOGLOBIN 31.6 PG (27.0-34.0); MEAN CORPUSCULAR HGB CONC 33.1 % (32.0-36.0); PLATELET COUNT 145 TH/MM3 (150-450); RED CELL DISTRIBUTION WIDTH 13.9 % (11.6-17.2); REVIEW FLAG FINAL; WHITE BLOOD COUNT 10.8 TH/MM3 (4.0-11.0)
[2017-07-25 22:59] LABS: ALKALINE PHOSPHATASE 59 U/L (45-117); ALT (GPT) 18 U/L (12-78); ANION GAP 9 MEQ/L (5-15); AST (GOT) 44 U/L (15-37); BICARBONATE 21.7 MEQ/L (21.0-32.0); BLOOD UREA NITROGEN 21 MG/DL (7-18); CHLORIDE 114 MEQ/L (98-107); GLOMERULAR FILTRATION RATE 54 ML/MIN (>89); POTASSIUM 4.3 MEQ/L (3.5-5.1); SODIUM (NA) 145 MEQ/L (136-145); TOTAL BILIRUBIN ADULT 0.5 MG/DL (0.2-1.0)
[2017-07-26] VITALS (18 sets, daily range): BP systolic 127–170; BP diastolic 58–121; PULSE 78–117; RESP 12–26; TEMP 97.9–98.6; O2SAT 93–98
[2017-07-26] MEDS: RESP: ALBUTEROL 2.5 MG/IPRATROPIUM 0.5 MG NEB (SCH) NEB ×6 (00:45→20:52)
[2017-07-26] MEDS: HEPARIN SODIUM - SQ 10,000 UNITS/ML VIAL SQ SCH ×3 (00:49→17:03)
[2017-07-26] MEDS: CHLORHEXIDINE GLUCONATE 2 % 1 PACK (2 CLOTHS) TOP SCH (03:20)
[2017-07-26] MEDS: SODIUM CHLOR 0.9% 1000 ML INJ 1,000 ML IV SCH ×2 (05:06→22:49)
[2017-07-26] MEDS: ASPIRIN 300 MG SUPP RECTAL SCH (09:37)
[2017-07-26] MEDS: SODIUM CHLORIDE 0.9% FLUSH 10 ML FLUSH IV FLUSH SCH ×2 (09:37→20:36)
[2017-07-26] MEDS: cefTRIAXone INJ 1,000 MG in SODIUM CHLORIDE 0.9% INJ 100 ML IV SCH (09:38)
[2017-07-26] MEDS: FAMOTIDINE 20 MG/2 ML VIAL IV PUSH SCH ×2 (09:38→20:35)
[2017-07-26] MEDS: DOCUSATE SODIUM 50 MG/SENNA 8.6 MG TAB PO SCH ×2 (09:38→20:35)
[2017-07-26] MEDS: AZITHROMYCIN INJ 500 MG in SODIUM CHLOR 0.9% 250 ML INJ 250 ML IV SCH (10:21)
--- NOTE | 2017-07-26 14:32 | HHI.CCPN ---
Subjective Remarks/Hospital Course 86 year old male presents with a history of last being seen normal at approximately 9:30 PM while sitting on the couch watching television. The patient then proceeded to take a few large deep breaths and then fell face forward onto the carpeted floor. The patient was unable to get up. He was noted to have at that time a left facial droop, left upper and left lower extremity weakness. He has no prior history of stroke. He has a prior history of brain aneurysm status post clipping about 30 years ago. The patient is awake and alert and is able to follow commands although he does have slurred speech. The patient has a gaze deviation to the right with a palsy with attempting to look to the left. He also has a left-sided facial droop. Stroke alert was called and the case was discussed with Dr. Brown, the neurologist non destructive evaluation specialist. Due to multiple comorbidities abdominal aneurysm and previous head bleed, the patient's family refused the administration of TPA. 07/24: Stable hemodynamics. 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 Urology Service opines that right ureter is no obstructed - no additional treatment unless creatinine rises. 07/25: COPD exacerbation with air trapping and respiratory acidosis. Patient is DNI status but family requests continued aggressive care otherwise. Will transfer to ICU and start BiPAP, steroids, dilators. 07/26: Appears comfortable on NC. No significant wheezing. Talkative. Left hemiplegia persists. Failed swallow eval Objective Vital Signs Date Time Temp Pulse Resp B/P (MAP) Pulse Ox O2 Delivery O2 Flow Rate FiO2 07/26/17 12:00 97.9 92 26 138/66 (90) 96 07/26/17 12:00 Nasal Cannula 5.00 07/26/17 08:00 35 Intake and Output 07/26/17 07/26/17 07/27/17 08:00 16:00 00:00 Intake Total 350 ml Output Total 350 ml Balance -350 ml 350 ml Result Diagram: 07/25/17212407/25/172124 Other Results Laboratory Tests Test 07/25/17 20:55 Blood Gas Puncture Site LT RADIAL Blood Gas Patient Temperature 98.6 Blood Gas HCO3 22 mmol/L (22-26) Blood Gas Base Excess -5.3 mmol/L (-2-2) Blood Gas Oxygen Saturation 93 % (90-100) Arterial Blood pH 7.17 (7.380-7.420) Arterial Blood Partial Pressure CO2 64 mmHg (38-42) Arterial Blood Partial Pressure O2 95 mmHg (61-120) Arterial Blood Oxygen Content 18.0 Vol % (12.0-20.0) Arterial Blood Carboxyhemoglobin 0.7 % (0-4) Arterial Blood Methemoglobin 1.0 % (0-2) Blood Gas Hemoglobin 13.6 G/DL (12.0-16.0) Oxygen Delivery Device SIMPLE MASK Blood Gas Liter Flow 8 L/M Imaging Last 24 hours Impressions Neck CTA 07/22/172236 Signed Impressions: Service Date/Time: Saturday, July 22, 2017 22:51 - CONCLUSION: 1. Calcification in the proximal right internal carotid artery causing 50%% lumen narrowing. 2. Calcifications the origin of the great vessels from the aorta and in the left internal carotid artery with out significant luminal narrowing. Tino Lenz MD Head CTA 07/22/172236 Signed Impressions: Service Date/Time: Saturday, July 22, 2017 22:51 - CONCLUSION: No evidence of vessel truncation or aneurysm. Tino Lenz MD Cervical Spine CT 07/22/172236 Signed Impressions: Service Date/Time: Saturday, July 22, 2017 22:51 - CONCLUSION: 1. Degenerative changes throughout the cervical spine. 2. No evidence of compression deformity or spondylolisthesis. Tino Lenz MD Abdomen/Pelvis CT 07/22/172236 Signed Impressions: Service Date/Time: Saturday, July 22, 2017 22:51 - CONCLUSION: 1. Severe right hydronephrosis and hydroureter no calcified stones. Findings suggest obstruction at ureteral vesicle junction. Can not exclude a bladder mass. 2. Infrarenal abdominal aortic aneurysms measuring up to 3.7 cm. 3. Several small nodular densities in the anterior right lower lung, incompletely included in the [id number] of the exam. 4. Round low density lesion in the spleen. Tino Lenz MD Objective Remarks GENERAL: Well-nourished, well-developed patient. SKIN: Warm and dry. HEAD: Forehead abrasions on the left side EYES: No scleral icterus. No injection or drainage. NECK: Supple, trachea midline. CARDIOVASCULAR: Regular rate and rhythm without murmurs, gallops, or rubs. RESPIRATORY: Good air entry bilaterally with minimal expiratory wheezing GASTROINTESTINAL: Abdomen soft, non-tender, distended with some skin ecchymosis. MUSCULOSKELETAL: No cyanosis, or edema. NEURO EXAM: Slightly slurred speech without expressive aphasia, left-sided facial droop. The patient has a gaze palsy when attempting to gaze to the left side. Flaccid L hemiplegia A/P Assessment and Plan Acute CVA - No TPA administered due to AAA and family concerns - Aspirin Plavix per neurology - PT and OT as tolerated - Speech evaluation and treatment-keep NPO per speech recommendation COPD, exacerbated with respiratory acidosis - DuoNeb scheduled and when necessary - Antibiotic coverage for bronchitis - Steroids iv - BiPAP PRN - Clinically improving Aortic aneurysm - No intervention indicated - Blood pressure control - Supportive care Hydronephrosis - [place] not to be obstructed by Urologist. - Neurology consult Coronary artery disease - Continue aspirin and Plavix DVT GI prophylaxis - Teds SCDs - Subcutaneous heparin - Pepcid Overall impression: Critically ill following acute CVA, now with exacerbated COPD and respiratory failure. Level 3 Kellen Bateman MD Jul 26, 2017 14:32
[2017-07-26] MEDS: hydrALAZINE HCL 20 MG/ML VIAL IV PUSH PRN (20:35)
[2017-07-26] MEDS: methylPREDNISolone SOD SUCC 125 MG/2 ML VIAL IV PUSH SCH (22:49)
[2017-07-27] VITALS (18 sets, daily range): BP systolic 131–167; BP diastolic 63–106; PULSE 80–108; RESP 16–25; TEMP 97.8–99.6; O2SAT 94–97
[2017-07-27] MEDS: HEPARIN SODIUM - SQ 10,000 UNITS/ML VIAL SQ SCH ×3 (00:44→16:48)
[2017-07-27] MEDS: RESP: ALBUTEROL 2.5 MG/IPRATROPIUM 0.5 MG NEB (SCH) NEB ×7 (01:10→23:56)
[2017-07-27] MEDS: CHLORHEXIDINE GLUCONATE 2 % 1 PACK (2 CLOTHS) TOP SCH (03:02)
[2017-07-27] MEDS: hydrALAZINE HCL 20 MG/ML VIAL IV PUSH PRN (05:16)
[2017-07-27] MEDS: methylPREDNISolone SOD SUCC 125 MG/2 ML VIAL IV PUSH SCH ×4 (05:16→23:09)
[2017-07-27] MEDS: FAMOTIDINE 20 MG/2 ML VIAL IV PUSH SCH ×2 (07:54→20:40)
[2017-07-27] MEDS: DOCUSATE SODIUM 50 MG/SENNA 8.6 MG TAB PO SCH ×2 (07:54→20:40)
[2017-07-27] MEDS: SODIUM CHLORIDE 0.9% FLUSH 10 ML FLUSH IV FLUSH SCH ×2 (07:54→20:40)
[2017-07-27] MEDS: ASPIRIN 300 MG SUPP RECTAL SCH (07:54)
[2017-07-27] MEDS ORDERED: FUROSEMIDE 40 MG/4 ML VIAL IV PUSH ONE (08:00)
[2017-07-27] MEDS: ZIPRASIDONE MESYLATE 20 MG VIAL IM PRN (08:01)
[2017-07-27] MEDS: cefTRIAXone INJ 1,000 MG in SODIUM CHLORIDE 0.9% INJ 100 ML IV SCH (10:28)
[2017-07-27] MEDS: AZITHROMYCIN INJ 500 MG in SODIUM CHLOR 0.9% 250 ML INJ 250 ML IV SCH (10:28)
--- NOTE | 2017-07-27 10:31 | EKG ---
Date Performed: 07/27/2017 Time Performed: 06:40:10 PTAGE: 86 years EKG: Sinus tachycardia Possible anteroseptal infarct - age undetermined Lateral T wave changes a re nonspecific Low QRS voltages in limb leads Abnormal ECG PREVIOUS TRACING : 07/25/2017 21.09 No significant change from previous tracing noted. DOCTOR: Tc Duarte Interpretating Date/Time 07/27/2017 10:29:35
--- NOTE | 2017-07-27 11:46 | HHI.PR ---
Review/Management Diagnosis neuro coverage, resp distress but left hemiparesis stable, severe he follows commands, moves right limbs well on request now in the unit for resp status spoke to family at bedside and they are aware of severity of stroke medical and post stroke care Diagnosis/Plan: (1) Ischemic stroke ICD Codes: I63.9 - Cerebral infarction, unspecified Status: Acute Plan: R MCA infarct ct brain naicp cta brain nml ct carotids rt carotid 50%, left carotid/arch- calcifications without significant stenosis 07/23 moderate to large rt mca infarct on repeat ct scan, ? rt mca hyperdense sign recs neuro unchanged. respiratory main issue. obtain pulm eval seen by palliative care d/w pt's grandson/. discussed prognosis. d/w rn swallow will be challenging with current resp state aspirin therapy (2) Pneumonia ICD Codes: J18.9 - Pneumonia, unspecified organism Status: Acute (3) COPD exacerbation ICD Codes: J44.1 - Chronic obstructive pulmonary disease with (acute) exacerbation Status: Acute Subjective Subjective Comments halicat yest coverage for dr Hendrix neuro stable per RN Active Medications Current Medications Medications (Trade) Dose Ordered Sig/Braden Route Start Time Stop Time Status Last Admin (NS Flush) 2 ml UNSCH PRN IV FLUSH 07/23/17 01:00 (NS Flush) 2 ml BID IV FLUSH 07/23/17 09:00 07/27/17 07:54 (Tylenol) 650 mg Q6H PRN PO 07/23/17 01:00 (Zofran Inj) 4 mg Q6H PRN IV PUSH 07/23/17 01:00 (Duoneb Neb) 1 ampule Q2HR NEB PRN INH 07/23/17 01:00 07/25/17 22:04 (Heparin Inj) 5,000 units Q8H SQ 07/23/17 01:00 07/27/17 07:53 Miscellaneous Information 1 Q361D XX 07/23/17 01:00 (Chlorhexidine 2% Cloth) 3 pack Taper DAILY@04 TOP 07/23/17 04:00 07/19/18 03:59 (Chlorhexidine 2% Cloth) 3 pack UNSCH PRN TOP 07/23/17 01:00 (Lilliam-Colace) 1 tab BID PO 07/23/17 09:00 07/27/17 07:54 (Milk Of Magnesia Liq) 30 ml Q12H PRN PO 07/23/17 01:00 (Senokot) 17.2 mg Q12H PRN PO 07/23/17 01:00 (Dulcolax Supp) 10 mg DAILY PRN RECTAL 07/23/17 01:00 (Lactulose Liq) 30 ml DAILY PRN PO 07/23/17 01:00 (Morphine Inj) 2 mg Q2H PRN IV 07/24/17 04:00 07/25/17 15:32 (Aspirin Supp) 300 mg DAILY RECTAL 07/24/17 09:30 07/27/17 07:54 Ceftriaxone Sodium 1000 mg/ Sodium Chloride 100 ml @ 200 mls/hr Q24H IV 07/25/17 10:00 07/27/17 10:28 Azithromycin 500 mg/Sodium Chloride 250 ml @ 250 mls/hr Q24H IV 07/25/17 11:00 07/27/17 10:28 (Vasotec Inj) 1.25 mg Q6H PRN IV PUSH 07/25/17 09:30 07/25/17 15:47 (Apresoline Inj) 10 mg Q4HR PRN IV PUSH 07/25/17 16:15 07/27/17 05:16 (Duoneb Neb) 1 ampule Q4HR NEB NEB 07/26/17 00:00 07/27/17 11:19 (SoluMEDROL INJ) 80 mg Q6HR IV PUSH 07/26/17 23:30 07/27/17 05:16 (Pepcid Inj) 10 mg Q12HR IV PUSH 07/26/17 21:00 07/27/17 07:54 (Geodon Inj) 10 mg Q12H PRN IM 07/27/17 07:45 07/27/17 08:01 Allergies Allergies Coded Allergies No Known Allergies ([id number]/12/17) Review of Systems All other ROS: ROS reviewed as documented in chart Exam I&O / VS 07/27/17 07/27/17 07/28/17 15:00 23:00 07:00 Intake Total 201 ml Balance 201 ml IV Total 201 ml Vital Signs Date Time Temp Pulse Resp B/P (MAP) Pulse Ox O2 Delivery O2 Flow Rate FiO2 07/27/17 10:00 95 07/27/17 08:14 94 Nasal Cannula 3.00 07/27/17 08:00 94 Nasal Cannula 3.00 07/27/17 08:00 98.5 108 23 158/106 (123) 95 07/27/17 08:00 108 07/27/17 06:00 106 07/27/17 04:00 98.3 86 18 150/69 (96) 95 07/27/17 04:00 86 07/27/17 04:00 95 Bi-Pap 35 07/27/17 03:58 95 35 07/27/17 02:00 96 07/27/17 01:11 96 35 07/27/17 00:00 98 07/27/17 00:00 99.6 98 25 144/71 (95) 94 07/27/17 00:00 94 Bi-Pap 35 07/26/17 22:20 94 Bi-Pap 35 07/26/17 22:15 97 35 07/26/17 22:00 100 07/26/17 20:54 97 Nasal Cannula 4.00 07/26/17 20:25 150/67 (94) 07/26/17 20:00 98.2 86 20 170/121 (137) 95 07/26/17 20:00 95 Nasal Cannula 5.00 07/26/17 20:00 86 07/26/17 18:00 95 07/26/17 16:00 98 Nasal Cannula 5.00 07/26/17 16:00 84 07/26/17 16:00 98.5 84 22 147/107 (120) 95 07/26/17 14:00 85 07/26/17 12:00 97.9 92 26 138/66 (90) 96 07/26/17 12:00 96 Nasal Cannula 5.00 07/26/17 12:00 92 Objective Micro and Labs Laboratory Tests Test 07/25/17 09:43 07/25/17 20:55 07/25/17 21:25 Blood Gas HCO3 20 mmol/L (22-26) Blood Gas Base Excess -4.0 mmol/L (-2-2) -5.3 mmol/L (-2-2) Arterial Blood pH 7.37 (7.380-7.420) 7.17 (7.380-7.420) Arterial Blood Partial Pressure CO2 36 mmHg (38-42) 64 mmHg (38-42) Red Blood Count 4.20 MIL/MM3 (4.50-5.90) Platelet Count 145 TH/MM3 (150-450) Blood Urea Nitrogen 21 MG/DL (7-18) Albumin 2.8 GM/DL (3.4-5.0) Calcium Level 8.0 MG/DL (8.5-10.1) Aspartate Amino Transf (AST/SGOT) 44 U/L (15-37) Chloride Level 114 MEQ/L (98-107) Estimat Glomerular Filtration Rate 54 ML/MIN (>89) Date/Time Source Procedure Growth Status 07/23/17 00:24 Blood Peripheral Aerobic Blood Culture - Preliminary NO GROWTH IN 4 DAYS Resulted 07/23/17 00:24 Blood Peripheral Anaerobic Blood Culture - Preliminary NO GROWTH IN 4 DAYS Resulted Problem Qualifiers (1) Pneumonia: Qualified Codes: J18.9 - Pneumonia, unspecified organism Maggie Linares MD Jul 27, 2017 11:46
[2017-07-27] MEDS: MORPHINE SULFATE 2 MG/ML INJ IV PRN (11:48)
[2017-07-27 12:37] LABS: MAGNESIUM 2.4 MG/DL (1.5-2.5); POTASSIUM 3.6 MEQ/L (3.5-5.1)
[2017-07-27 13:11] LABS: BLOOD GAS BASE EXCESS -4.4 mmol/L (-2-2); BLOOD GAS CARBOXYHEMOGLOBIN 1.1 % (0-4); BLOOD GAS HCO3 20 mmol/L (22-26); BLOOD GAS METHEMOGLOBIN 0.9 % (0-2); BLOOD GAS O2 HGB SATURATION 96 % (90-100); BLOOD GAS OXYGEN CONTENT 17.7 Vol % (12.0-20.0); BLOOD GAS PCO2 34 mmHg (38-42); BLOOD GAS PO2 97 mmHg (61-120); BLOOD GAS TOTAL HGB 13.1 G/DL (12.0-16.0); CRITICAL VALUE NO; OXYGEN DEVICE BiPAP; TEMP CORR TO 98.6; VENT SETTINGS IPAP12/EPAP5
[2017-07-27 13:12] LABS: DRAW SITE RT RADIAL; FIO2 45 %; NUMBER OF ARTERIAL PUNCTURES 1; STAT NO; ULNAR PULSE PRESENT
[2017-07-28] VITALS (18 sets, daily range): BP systolic 132–204; BP diastolic 71–117; PULSE 92–110; RESP 17–30; TEMP 98.1–100.5; O2SAT 94–98
[2017-07-28] MEDS: MORPHINE SULFATE 2 MG/ML INJ IV PRN ×2 (00:11→19:44)
[2017-07-28] MEDS: HEPARIN SODIUM - SQ 10,000 UNITS/ML VIAL SQ SCH ×3 (00:11→17:31)
[2017-07-28] MEDS: hydrALAZINE HCL 20 MG/ML VIAL IV PUSH PRN ×4 (00:15→20:36)
[2017-07-28] MEDS: ZIPRASIDONE MESYLATE 20 MG VIAL IM PRN ×2 (01:07→14:39)
[2017-07-28] MEDS: CHLORHEXIDINE GLUCONATE 2 % 1 PACK (2 CLOTHS) TOP SCH (03:35)
[2017-07-28] MEDS: RESP: ALBUTEROL 2.5 MG/IPRATROPIUM 0.5 MG NEB (SCH) NEB ×5 (04:31→20:50)
[2017-07-28] MEDS: methylPREDNISolone SOD SUCC 125 MG/2 ML VIAL IV PUSH SCH ×4 (05:19→22:37)
[2017-07-28 06:27] LABS: AUTOMATED NEUTROPHIL # 7.5 TH/MM3 (1.8-7.7); BASOPHIL % 0.1 % (0.0-2.0); HEMATOCRIT 41.1 % (39.0-51.0); HEMO FLAGS DIFF FINAL; LYMPHOCYTE # 0.2 TH/MM3 (1.0-4.8); MEAN CELL VOLUME 94.6 FL (80.0-100.0); MEAN CORPUSCULAR HEMOGLOBIN 31.5 PG (27.0-34.0); MEAN CORPUSCULAR HGB CONC 33.3 % (32.0-36.0); MONO % 3.3 % (0.0-8.0); NEUT % 94.6 % (16.0-70.0); PLATELET COUNT 146 TH/MM3 (150-450); RED BLOOD COUNT 4.35 MIL/MM3 (4.50-5.90); RED CELL DISTRIBUTION WIDTH 13.8 % (11.6-17.2); WHITE BLOOD COUNT 7.9 TH/MM3 (4.0-11.0)
[2017-07-28 06:55] LABS: BICARBONATE 27.5 MEQ/L (21.0-32.0); POTASSIUM 3.4 MEQ/L (3.5-5.1)
[2017-07-28] MEDS: DOCUSATE SODIUM 50 MG/SENNA 8.6 MG TAB PO SCH ×2 (09:00→19:44)
[2017-07-28] MEDS: SODIUM CHLORIDE 0.9% FLUSH 10 ML FLUSH IV FLUSH SCH ×2 (09:00→19:44)
[2017-07-28] MEDS: cefTRIAXone INJ 1,000 MG in SODIUM CHLORIDE 0.9% INJ 100 ML IV SCH (09:15)
[2017-07-28] MEDS: FAMOTIDINE 20 MG/2 ML VIAL IV PUSH SCH ×2 (09:16→19:44)
[2017-07-28] MEDS: ENALAPRILAT 1.25 MG/ML VIAL IV PUSH PRN ×2 (09:16→19:44)
[2017-07-28] MEDS: AZITHROMYCIN INJ 500 MG in SODIUM CHLOR 0.9% 250 ML INJ 250 ML IV SCH (09:16)
[2017-07-28] MEDS: ASPIRIN 300 MG SUPP RECTAL SCH (09:17)
--- NOTE | 2017-07-28 15:45 | HHI.PR ---
Subjective Remarks ALERT ON O2/BIPAP NO DITRESS Objective Vital Signs Date Time Temp Pulse Resp B/P (MAP) Pulse Ox O2 Delivery O2 Flow Rate FiO2 07/28/17 14:00 110 07/28/17 13:25 98 45 07/28/17 12:00 96 Bi-Pap 07/28/17 12:00 98.9 105 20 170/75 (106) 96 07/28/17 12:00 105 07/28/17 10:00 108 07/28/17 08:00 96 Bi-Pap 07/28/17 08:00 109 07/28/17 08:00 98.6 109 17 173/97 (122) 96 07/28/17 06:00 102 07/28/17 04:31 97 45 07/28/17 04:00 98 Bi-Pap 07/28/17 04:00 108 07/28/17 04:00 98.1 108 28 132/71 (91) 98 07/28/17 02:00 92 07/28/17 00:20 168/79 (108) 07/28/17 00:00 96 45 07/28/17 00:00 97 Bi-Pap 07/28/17 00:00 102 07/28/17 00:00 98.4 102 30 204/117 (146) 94 07/27/17 22:00 80 07/27/17 21:48 94 Nasal Cannula 3.00 07/27/17 20:00 95 Nasal Cannula 3.00 07/27/17 20:00 96 07/27/17 20:00 97.8 96 18 131/90 (104) 94 07/27/17 18:00 87 07/27/17 16:27 96 45 07/27/17 16:00 98.0 94 16 167/78 (107) 97 07/27/17 16:00 97 Bi-Pap 35 07/27/17 16:00 84 I/O 07/27/17 07/27/17 07/27/17 07/28/17 07/28/17 07/28/17 07:00 15:00 23:00 07:00 15:00 23:00 Intake Total 0 ml 451 ml 0 ml 0 ml Output Total 500 ml 1850 ml 675 ml Balance -500 ml 451 ml -1850 ml -675 ml Intake Oral 0 ml 0 ml 0 ml IV Total 451 ml Output Urine Total 500 ml 1850 ml 675 ml # Bowel Movements 0 0 0 Result Diagram: 07/28/17 0532 07/28/17 0532 Objective Remarks GENERAL: SKIN: Warm and dry. HEAD: Atraumatic. Normocephalic. EYES: Pupils equal and round. No scleral icterus. No injection or drainage. ENT: No nasal bleeding or discharge. Mucous membranes pink and moist. NECK: Trachea midline. No JVD. CARDIOVASCULAR: Regular rate and rhythm. RESPIRATORY: No accessory muscle use. Clear to auscultation. Breath sounds equal bilaterally. GASTROINTESTINAL: Abdomen soft, non-tender, nondistended. Hepatic and splenic margins not palpable. MUSCULOSKELETAL: Extremities without clubbing, cyanosis, or edema. No obvious deformities. NEUROLOGICAL: Awake and alert. No obvious cranial nerve deficits. Motor grossly within normal limits. Five out of 5 muscle strength in the arms and legs. Normal speech. PSYCHIATRIC: Appropriate mood and affect; insight and judgment normal. Assessment and Plan Assessment and Plan COPD S.P CVA PLAN O2 NEEDED BRONCHODILATORS INCREASE ACTIVITY Justina Horn MD Jul 28, 2017 15:45
--- NOTE | 2017-07-28 15:53 | HHI.HCPN ---
Reason for visit a. To assist with evaluation and management of symptoms including: dyspnea, left sided weakness, dysphagia. b. To assist medical decision maker(s) with: better understanding of current medical conditions; weighing benefits/burdens of medical treatment options; making medical treatment decisions. . Subjective/Interval History Patient seen and examined in ICU. and daughter at bedside. Also present KELLY Hayden. He was transferred to ICU over the weekend for respiratory distress/ hypoxia. He is currently on BiPAP, oxygen stats running low 90's. Hypertensive (170/75). Tachycardic rate 100-110. Breathing mildly labored at rest on BiPAP. Patient is awake and alert. He denies pain. He reports shortness of breath at rest. He is frustrated trying to communicate with BiPAP in place. Communication board obtained. He is able to spell words. He tells me his mouth is dry and he wants a drink and to eat some applesauce. Reviewed recent swallow tests and concerns for high risk for aspiration due to dysphagia since recent stroke. I explained risk of worsening respiratory distress and even . He spells out "I want to ." He tells family he wants to go home. He is very agitated and frustrated. Family is upset by the conversation. Has PRN Morphine 2mg IV every 2 hours PRN. Has had 2 doses in the past 24 hours. No new imaging. On Azithromycin and Ceftriaxone. WBC 7.9, hemoglobin 13.7, hematocrit 41.1, platelets 146. Sodium 153, potassium 3.4, creatinine 1.58. BNP 320. Remains flaccid on left side. Discussed with Dr. Ramsey. Family reports NG tube was attempted x 4 over the weekend, pt became agitated and refused. . Family/friend interactions Met with patient, and daughter at bedside. Then met with and daughter in consult room. is upset by the conversation regarding patient declining pulmonary status, poor functional status and concerns about nutritional status. I have explained he may not survive this hospitalization. Offered transition to comfort with hospice support, family is not open to this conversation today. I suspect they will need to see further decline before they may be willing to consider comfort measures. . Advance Directives Living Will: Never completed Health Care Surrogate: Never completed Durable Power of Circuit Breaker Assembler: Never completed Advance Directive Specifics Health Care Surrogate(s): Patient appears capacitated at this time, though I would recommend shared decision making. According to [place] statutes, should he lose capacity, health care proxy decision making would fall to his . Nichelle. . Objective Vital Signs Date Time Temp Pulse Resp B/P (MAP) Pulse Ox O2 Delivery O2 Flow Rate FiO2 07/28/17 14:00 110 07/28/17 13:25 98 45 07/28/17 12:00 96 Bi-Pap 07/28/17 12:00 98.9 105 20 170/75 (106) 96 07/28/17 12:00 105 07/28/17 10:00 108 07/28/17 08:00 96 Bi-Pap 07/28/17 08:00 109 07/28/17 08:00 98.6 109 17 173/97 (122) 96 07/28/17 06:00 102 07/28/17 04:31 97 45 07/28/17 04:00 98 Bi-Pap 07/28/17 04:00 108 07/28/17 04:00 98.1 108 28 132/71 (91) 98 07/28/17 02:00 92 07/28/17 00:20 168/79 (108) 07/28/17 00:00 96 45 07/28/17 00:00 97 Bi-Pap 07/28/17 00:00 102 07/28/17 00:00 98.4 102 30 204/117 (146) 94 07/27/17 22:00 80 07/27/17 21:48 94 Nasal Cannula 3.00 07/27/17 20:00 95 Nasal Cannula 3.00 07/27/17 20:00 96 07/27/17 20:00 97.8 96 18 131/90 (104) 94 07/27/17 18:00 87 07/27/17 16:27 96 45 07/27/17 16:00 98.0 94 16 167/78 (107) 97 07/27/17 16:00 97 Bi-Pap 35 07/27/17 16:00 84 Intake & Output 07/28/17 07/28/17 07:00 19:00 Intake Total 0 ml Output Total 675 ml Balance -675 ml Intake Oral 0 ml Output Urine Total 675 ml # Bowel Movements 0 Physical Exam CONSTITUTIONAL/GENERAL: This is an adequately nourished patient, awakens and communicates with slurred speech. TUBES/LINES/DRAINS:O2 simple mask, PIV bilaterally, SCDs SKIN: No jaundice, rashes, or lesions. Ecchymoses on upper extremities. No wounds seen anteriorly. Skin temperature appropriate. Not diaphoretic. EYES: Eyes open seems to be having some difficulty seeing out of left eye vs difficulty visualizing due to BiPAP. CARDIOVASCULAR: Tachycardic. RESPIRATORY/CHEST: Labored respirations at rest on BiPAP, using accessory muscles, scattered course breath sounds. GASTROINTESTINAL: Abdomen soft, non-tender, distended. No guarding. Bowel sounds present. GENITOURINARY: Without palpable bladder distension. MUSCULOSKELETAL: Extremities without clubbing, cyanosis, or edema. No mottling or clubbing. NEUROLOGICAL: Awakens, oriented. Left facial droop. Left upper and lower extremity weakness. PSYCHIATRIC: No obvious anxiety/depression. . Diagnostic Tests Laboratory Laboratory Tests Test 07/25/17 20:55 07/25/17 21:25 07/27/17 10:20 07/27/17 13:00 Blood Gas Puncture Site LT RADIAL RT RADIAL Blood Gas Patient Temperature 98.6 98.6 Blood Gas HCO3 22 mmol/L (22-26) 20 mmol/L (22-26) Blood Gas Base Excess -5.3 mmol/L (-2-2) -4.4 mmol/L (-2-2) Blood Gas Oxygen Saturation 93 % (90-100) 96 % (90-100) Arterial Blood pH 7.17 (7.380-7.420) 7.38 (7.380-7.420) Arterial Blood Partial Pressure CO2 64 mmHg (38-42) 34 mmHg (38-42) Arterial Blood Partial Pressure O2 95 mmHg (61-120) 97 mmHg (61-120) Arterial Blood Oxygen Content 18.0 Vol % (12.0-20.0) 17.7 Vol % (12.0-20.0) Arterial Blood Carboxyhemoglobin 0.7 % (0-4) 1.1 % (0-4) Arterial Blood Methemoglobin 1.0 % (0-2) 0.9 % (0-2) Blood Gas Hemoglobin 13.6 G/DL (12.0-16.0) 13.1 G/DL (12.0-16.0) Oxygen Delivery Device SIMPLE MASK BiPAP Blood Gas Liter Flow 8 L/M White Blood Count 10.8 TH/MM3 (4.0-11.0) Red Blood Count 4.20 MIL/MM3 (4.50-5.90) Hemoglobin 13.3 GM/DL (13.0-17.0) Hematocrit 40.1 % (39.0-51.0) Mean Corpuscular Volume 95.6 FL (80.0-100.0) Mean Corpuscular Hemoglobin 31.6 PG (27.0-34.0) Mean Corpuscular Hemoglobin Concent 33.1 % (32.0-36.0) Red Cell Distribution Width 13.9 % (11.6-17.2) Platelet Count 145 TH/MM3 (150-450) Mean Platelet Volume 8.2 FL (7.0-11.0) Blood Urea Nitrogen 21 MG/DL (7-18) 34 MG/DL (7-18) Creatinine 1.26 MG/DL (0.60-1.30) 1.31 MG/DL (0.60-1.30) Random Glucose 89 MG/DL (74-106) 108 MG/DL (74-106) Total Protein 7.0 GM/DL (6.4-8.2) Albumin 2.8 GM/DL (3.4-5.0) Calcium Level 8.0 MG/DL (8.5-10.1) 8.3 MG/DL (8.5-10.1) Alkaline Phosphatase 59 U/L (45-117) Aspartate Amino Transf (AST/SGOT) 44 U/L (15-37) Alanine Aminotransferase (ALT/SGPT) 18 U/L (12-78) Total Bilirubin 0.5 MG/DL (0.2-1.0) Sodium Level 145 MEQ/L (136-145) 151 MEQ/L (136-145) Potassium Level 4.3 MEQ/L (3.5-5.1) 3.6 MEQ/L (3.5-5.1) Chloride Level 114 MEQ/L (98-107) 120 MEQ/L (98-107) Carbon Dioxide Level 21.7 MEQ/L (21.0-32.0) 20.0 MEQ/L (21.0-32.0) Anion Gap 9 MEQ/L (5-15) 11 MEQ/L (5-15) Estimat Glomerular Filtration Rate 54 ML/MIN (>89) 52 ML/MIN (>89) Troponin I 0.05 NG/ML (0.02-0.05) Phosphorus Level 2.3 MG/DL (2.5-4.9) Magnesium Level 2.4 MG/DL (1.5-2.5) Blood Gas Ventilator Setting [id number] Blood Gas Inspired Oxygen 45 % Test 07/28/17 05:32 White Blood Count 7.9 TH/MM3 (4.0-11.0) Red Blood Count 4.35 MIL/MM3 (4.50-5.90) Hemoglobin 13.7 GM/DL (13.0-17.0) Hematocrit 41.1 % (39.0-51.0) Mean Corpuscular Volume 94.6 FL (80.0-100.0) Mean Corpuscular Hemoglobin 31.5 PG (27.0-34.0) Mean Corpuscular Hemoglobin Concent 33.3 % (32.0-36.0) Red Cell Distribution Width 13.8 % (11.6-17.2) Platelet Count 146 TH/MM3 (150-450) Mean Platelet Volume 8.2 FL (7.0-11.0) Neutrophils (%) (Auto) 94.6 % (16.0-70.0) Lymphocytes (%) (Auto) 2.0 % (9.0-44.0) Monocytes (%) (Auto) 3.3 % (0.0-8.0) Eosinophils (%) (Auto) 0.0 % (0.0-4.0) Basophils (%) (Auto) 0.1 % (0.0-2.0) Neutrophils # (Auto) 7.5 TH/MM3 (1.8-7.7) Lymphocytes # (Auto) 0.2 TH/MM3 (1.0-4.8) Monocytes # (Auto) 0.3 TH/MM3 (0-0.9) Eosinophils # (Auto) 0.0 TH/MM3 (0-0.4) Basophils # (Auto) 0.0 TH/MM3 (0-0.2) CBC Comment DIFF FINAL Differential Comment Blood Urea Nitrogen 43 MG/DL (7-18) Creatinine 1.58 MG/DL (0.60-1.30) Random Glucose 131 MG/DL (74-106) Calcium Level 8.4 MG/DL (8.5-10.1) Sodium Level 153 MEQ/L (136-145) Potassium Level 3.4 MEQ/L (3.5-5.1) Chloride Level 119 MEQ/L (98-107) Carbon Dioxide Level 27.5 MEQ/L (21.0-32.0) Anion Gap 7 MEQ/L (5-15) Estimat Glomerular Filtration Rate 42 ML/MIN (>89) B-Type Natriuretic Peptide 320 PG/ML (0-100) Result Diagram: 07/28/17 0532 07/28/17 0532 Microbiology Microbiology Date/Time Source Procedure Growth Status 07/23/17 00:24 Blood Peripheral Aerobic Blood Culture - Final NO GROWTH IN 5 DAYS Complete 07/23/17 00:24 Blood Peripheral Anaerobic Blood Culture - Final NO GROWTH IN 5 DAYS Complete Imaging Last Impressions Chest X-Ray 07/25/17 0910 Signed Impressions: Service Date/Time: Tuesday, July 25, 2017 09:35 - CONCLUSION: Mild right middle lobe infiltrate. No significant changes compared to the prior study. Sunil Kennedy MD Head CT 07/23/17 1800 Signed Impressions: Service Date/Time: Sunday, July 23, 2017 22:04 - CONCLUSION: 1. Large evolving infarct in the right MCA distribution with mild localized mass effect. No acute hemorrhage. No significant midline shift. Wilmar Olmstead MD Neck CTA [id number]/22/172236 Signed Impressions: Service Date/Time: Saturday, July 22, 2017 22:51 - CONCLUSION: 1. Calcification in the proximal right internal carotid artery causing 50%% lumen narrowing. 2. Calcifications the origin of the great vessels from the aorta and in the left internal carotid artery with out significant luminal narrowing. Tino Lenz MD Head CTA [id number]/22/172236 Signed Impressions: Service Date/Time: Saturday, July 22, 2017 22:51 - CONCLUSION: No evidence of vessel truncation or aneurysm. Tino Lenz MD Cervical Spine CT [id number]/22/172236 Signed Impressions: Service Date/Time: Saturday, July 22, 2017 22:51 - CONCLUSION: 1. Degenerative changes throughout the cervical spine. 2. No evidence of compression deformity or spondylolisthesis. Tino Lenz MD Abdomen/Pelvis CT 07/22/17 2237 Signed Impressions: Service Date/Time: Saturday, July 22, 2017 22:51 - CONCLUSION: 1. Severe right hydronephrosis and hydroureter no calcified stones. Findings suggest obstruction at ureteral vesicle junction. Can not exclude a bladder mass. 2. Infrarenal abdominal aortic aneurysms measuring up to 3.7 cm. 3. Several small nodular densities in the anterior right lower lung, incompletely included in the [id number] of the exam. 4. Round low density lesion in the spleen. Tino Lenz MD Assessment and Plan Disease Oriented Problem List: (1) Ischemic stroke (2) COPD exacerbation (3) Pneumonia (4) Hydronephrosis, right Symptom Scale: (1) Shortness of breath 0-10 Scale: Unable to quantify (2) Left-sided weakness 0-10 Scale: Unable to quantify (3) Dysphagia 0-10 Scale: Unable to quantify Pertinent Non-Medical Issues Psychosocial: to Nichelle for 68 years. 3 children, grandchildren and great grandchildren. Lives in [place], visits here a few months of the year. Spiritual: Taoism [place]. Legal: Patient appears capacitated at this time, though I would recommend shared decision making. According to [place] statutes, should he lose capacity, health care proxy decision making would fall to his Eamon Steward. Ethical issues impacting care: No known concerns at this time. . Important Contacts * Nichelle Nick, : [phone] * Andrew Nick, grandson: [phone] . Prognosis Mr. Nick is a 86 year old male with history of CAD, COPD and other comorbidities admitted with large right MCA stroke with dysphagia and left sided weakness. He remains high risk for aspiration and further decline. . Code Status: Alternative Code (Shock and ACLS) Plan * Patient appears capacitated at this time, though I would recommend shared decision making. According to [place] statutes, should he lose capacity, health care proxy decision making would fall to his Eamon Steward. * Alternate Code - Shock and ACLS only. No chest compressions or intubation. * Goals: Remain aggressive including NG placement for meds/ feeding short of alternate code status. Met with patient, and daughter at bedside. Then met with and daughter in consult room. is upset by the conversation regarding patient declining pulmonary status, poor functional status and concerns about nutritional status. I have explained he may not survive this hospitalization. Offered transition to comfort with hospice support, family is not open to this conversation today. I suspect they will need to see further decline before they may be willing to consider comfort measures. * SYMPTOMS: Dysphagia: secondary to right MCA stroke, failed swallow eval, will monitor may need NG/PEG if no improvement. Family desires artificial nutrition if needed as of today. Left sided weakness: secondary to stroke. Will need PT/ OT and rehab if goals remain aggressive. Dyspnea: due to COPD and pneumonia. On oxygen via simple mask, labored respirations at rest. High risk for further decline, aspiration. Will monitor. * Palliative care will continue to follow to assist with communication, symptom management and clarification of goals. . Attestation To help prompt me to consider important information that might be impacting today's encounter and assessment, information from prior notes written by myself or my colleagues may have been "brought forward" into today's note. My signature on this note, however, is an attestation that I personally performed the exam, history, and/or decision-making noted today, and, unless otherwise indicated, the interactions with patient, family, and staff as well as the review of records all occurred today. I also attest that the listed assessment and stated plan reflect my best clinical judgment today based on the combination of historical information, prior notes, and today's exam/ interactions. When time spent is documented, it refers only to time spent today by the signer, or if indicated, combined time spent today by collaborating physician/nurse practitioner. Yesenia Sosa Jul 28, 2017 15:53
[2017-07-28] MEDS ORDERED: ICU - SODIUM PHOSPHATE 30 MMOL/NS 250 ML IV PRN ×2 (19:45)
[2017-07-28] MEDS ORDERED: ICU - POTASSIUM CHLORIDE/AQUEOUS SOLN 40 MEQ/100 ML IVPB IV PRN (19:45)
[2017-07-28] MEDS ORDERED: POTASSIUM CHLORIDE 25 MEQ EFFERVESCENT TAB PO PRN (19:45)
[2017-07-28] MEDS ORDERED: ICU - D/C ICU ELECTROLYTE ORDERS PRN (19:45)
[2017-07-28] MEDS ORDERED: ICU - MAGNESIUM SULFATE 4 GM/NS 100 ML IV PRN ×2 (19:45)
[2017-07-28] MEDS ORDERED: ICU - MAGNESIUM OXIDE 400 MG TAB PO PRN (19:45)
[2017-07-28] MEDS ORDERED: ICU - POTASSIUM PHOSPHATE 30 MMOL/NS 250 ML IV PRN ×2 (19:45)
[2017-07-28] MEDS ORDERED: ICU - MAGNESIUM SULFATE 2 GM/NS 100 ML IV PRN ×2 (19:45)
[2017-07-28] MEDS ORDERED: ICU - POTASSIUM PHOSPHATE MONOBASIC 500 MG TAB PO PRN (19:45)
[2017-07-28] MEDS ORDERED: ICU - CALL ORDERING PHYSICIAN PRN (19:45)
[2017-07-28] MEDS: ICU - POTASSIUM CHLORIDE/AQUEOUS SOLN 20 MEQ/100 ML IVPB IV PRN ×2 (20:36→23:31)
[2017-07-29] VITALS (17 sets, daily range): BP systolic 125–184; BP diastolic 71–88; PULSE 103–122; RESP 14–22; TEMP 98.4–99.2; O2SAT 91–97
[2017-07-29] MEDS: RESP: ALBUTEROL 2.5 MG/IPRATROPIUM 0.5 MG NEB (SCH) NEB ×7 (00:06→23:44)
[2017-07-29] MEDS: HEPARIN SODIUM - SQ 10,000 UNITS/ML VIAL SQ SCH ×3 (01:49→17:25)
[2017-07-29] MEDS: hydrALAZINE HCL 20 MG/ML VIAL IV PUSH PRN ×4 (01:49→21:45)
[2017-07-29] MEDS: ZIPRASIDONE MESYLATE 20 MG VIAL IM PRN ×2 (02:00→21:02)
[2017-07-29] MEDS: CHLORHEXIDINE GLUCONATE 2 % 1 PACK (2 CLOTHS) TOP SCH (04:00)
[2017-07-29] MEDS: methylPREDNISolone SOD SUCC 125 MG/2 ML VIAL IV PUSH SCH ×3 (04:34→21:03)
--- NOTE | 2017-07-29 08:57 | HHI.PR ---
Subjective Remarks ALERT ON O2/BIPAP NO DITRESS Objective Vital Signs Date Time Temp Pulse Resp B/P (MAP) Pulse Ox O2 Delivery O2 Flow Rate FiO2 07/29/17 06:07 95 High Flow Nasal Cannula 25.00 50 07/29/17 06:00 104 07/29/17 06:00 Nasal Cannula 25.00 50 07/29/17 04:36 94 35 07/29/17 04:00 98.8 103 14 138/72 (94) 97 07/29/17 04:00 103 07/29/17 04:00 97 Bi-Pap 35 07/29/17 02:00 110 07/29/17 00:07 97 45 07/29/17 00:00 108 07/29/17 00:00 95 Bi-Pap 45 07/29/17 00:00 99.2 108 20 125/82 (96) 97 07/28/17 22:00 98 07/28/17 20:52 98 BiPAP 45 07/28/17 20:47 98 45 07/28/17 20:00 100.5 106 23 191/82 (118) 96 07/28/17 20:00 106 07/28/17 20:00 96 Bi-Pap 45 07/28/17 18:00 108 07/28/17 17:17 98 45 07/28/17 16:00 98 Bi-Pap 07/28/17 16:00 98.9 105 27 169/83 (111) 97 07/28/17 16:00 105 07/28/17 14:00 110 07/28/17 13:25 98 45 07/28/17 12:00 96 Bi-Pap 07/28/17 12:00 98.9 105 20 170/75 (106) 96 07/28/17 12:00 105 07/28/17 10:00 108 I/O 07/28/17 07/28/17 07/28/17 07/29/17 07/29/17 07/29/17 07:00 15:00 23:00 07:00 15:00 23:00 Intake Total 0 ml 450 ml Output Total 675 ml 500 ml Balance -675 ml -500 ml 450 ml Intake Oral 0 ml 0 ml IV Total 450 ml Output Urine Total 675 ml 500 ml # Voids 3 3 # Bowel Movements 0 0 0 Result Diagram: 07/28/17 0532 07/28/17 0532 Objective Remarks GENERAL: SKIN: Warm and dry. HEAD: Atraumatic. Normocephalic. EYES: Pupils equal and round. No scleral icterus. No injection or drainage. ENT: No nasal bleeding or discharge. Mucous membranes pink and moist. NECK: Trachea midline. No JVD. CARDIOVASCULAR: Regular rate and rhythm. RESPIRATORY: No accessory muscle use. Clear to auscultation. Breath sounds equal bilaterally. GASTROINTESTINAL: Abdomen soft, non-tender, nondistended. Hepatic and splenic margins not palpable. MUSCULOSKELETAL: Extremities without clubbing, cyanosis, or edema. No obvious deformities. NEUROLOGICAL: Awake and alert. No obvious cranial nerve deficits. Motor grossly within normal limits. Five out of 5 muscle strength in the arms and legs. Normal speech. PSYCHIATRIC: Appropriate mood and affect; insight and judgment normal. Assessment and Plan Assessment and Plan respiratory failure COPD S.P CVA PLAN O2 NEEDED BRONCHODILATORS INCREASE ACTIVITY Justina Horn MD Jul 29, 2017 08:57
[2017-07-29] MEDS: DOCUSATE SODIUM 50 MG/SENNA 8.6 MG TAB PO SCH ×2 (09:00→21:00)
[2017-07-29] MEDS: ASPIRIN 300 MG SUPP RECTAL SCH (09:00)
[2017-07-29] MEDS: FAMOTIDINE 20 MG/2 ML VIAL IV PUSH SCH ×2 (09:15→21:02)
[2017-07-29] MEDS: SODIUM CHLORIDE 0.9% FLUSH 10 ML FLUSH IV FLUSH SCH ×2 (09:16→21:03)
[2017-07-29] MEDS: cefTRIAXone INJ 1,000 MG in SODIUM CHLORIDE 0.9% INJ 100 ML IV SCH (09:17)
[2017-07-29] MEDS: AZITHROMYCIN INJ 500 MG in SODIUM CHLOR 0.9% 250 ML INJ 250 ML IV SCH (11:10)
--- NOTE | 2017-07-29 14:26 | HHI.HCPN ---
Reason for visit a. To assist with evaluation and management of symptoms including: dyspnea, left sided weakness, dysphagia. b. To assist medical decision maker(s) with: better understanding of current medical conditions; weighing benefits/burdens of medical treatment options; making medical treatment decisions. . Subjective/Interval History Patient seen and examined in ICU. at bedside. Also present KELLY Hayden. Patient on high flow oxygen via NC in his mouth. Oxygen stats running 93-97 today. Hypertensive (169/71). Tachycardic rate 100-116. Breathing non-labored today. Patient is awake, more lethargic today. His speech is slurred. Left facial droop noted. Left side flaccid. Moves right side on command. He denies pain. He reports shortness of breath at rest. He is frustrated trying to communicate. He reports mouth is dry and he wants a drink and eat. Repeat swallow test pending. Has PRN Morphine 2mg IV every 2 hours PRN. None given since 07/28. No new labs or imaging. On Azithromycin and Ceftriaxone. Spoke with patient and about possible options if he fails swallow test again. He and indicate they would want to try anything including attempting NG tube. . Family/friend interactions See Interval note. . Advance Directives Living Will: Never completed Health Care Surrogate: Never completed Durable Power of Supervisor [employer]: Never completed Advance Directive Specifics Health Care Surrogate(s): Patient appears capacitated at this time, though I would recommend shared decision making. According to [place] statutes, should he lose capacity, health care proxy decision making would fall to his . Nichelle. . Significant change in goals: Alternate Code: Shock and ACLS only. Goals remain aggressive including NG tube placement if needed. . Objective Vital Signs Date Time Temp Pulse Resp B/P (MAP) Pulse Ox O2 Delivery O2 Flow Rate FiO2 07/29/17 14:00 110 07/29/17 12:00 97 Nasal Cannula 25.00 50 07/29/17 12:00 112 07/29/17 12:00 98.4 104 19 169/71 (103) 97 07/29/17 10:00 116 07/29/17 09:37 96 HIGH FLOW 50 07/29/17 08:00 110 07/29/17 08:00 93 Nasal Cannula 25.00 50 07/29/17 08:00 98.8 108 19 162/73 (102) 93 07/29/17 06:07 95 High Flow Nasal Cannula 25.00 50 07/29/17 06:00 104 07/29/17 06:00 Nasal Cannula 25.00 50 07/29/17 04:36 94 35 07/29/17 04:00 98.8 103 14 138/72 (94) 97 07/29/17 04:00 103 07/29/17 04:00 97 Bi-Pap 35 07/29/17 02:00 110 07/29/17 00:07 97 45 07/29/17 00:00 108 07/29/17 00:00 95 Bi-Pap 45 07/29/17 00:00 99.2 108 20 125/82 (96) 97 07/28/17 22:00 98 07/28/17 20:52 98 BiPAP 45 07/28/17 20:47 98 45 07/28/17 20:00 100.5 106 23 191/82 (118) 96 07/28/17 20:00 106 07/28/17 20:00 96 Bi-Pap 45 07/28/17 18:00 108 07/28/17 17:17 98 45 07/28/17 16:00 98 Bi-Pap 07/28/17 16:00 98.9 105 27 169/83 (111) 97 07/28/17 16:00 105 Intake & Output 07/29/17 07/29/17 06:59 18:59 Intake Total 450 ml Balance 450 ml Intake Oral 0 ml IV Total 450 ml # Voids 3 # Bowel Movements 0 Physical Exam CONSTITUTIONAL/GENERAL: This is an adequately nourished patient, awakens and communicates with slurred speech. TUBES/LINES/DRAINS:O2 high flow NC, PIV bilaterally, SCDs SKIN: No jaundice, rashes, or lesions. Ecchymoses on upper extremities. No wounds seen anteriorly. Skin temperature appropriate. Not diaphoretic. EYES: Eyes open seems to be having some difficulty seeing out of left eye vs difficulty visualizing due to BiPAP. CARDIOVASCULAR: Tachycardic. RESPIRATORY/CHEST: Labored respirations at rest on high flow O2. scattered course breath sounds. GASTROINTESTINAL: Abdomen soft, non-tender, distended. No guarding. Bowel sounds present. GENITOURINARY: Without palpable bladder distension. MUSCULOSKELETAL: Extremities without clubbing, cyanosis, or edema. No mottling or clubbing. NEUROLOGICAL: Lethargic. Left facial droop. Left upper and lower extremity flaccid. PSYCHIATRIC: No obvious anxiety/depression. . Diagnostic Tests Laboratory Laboratory Tests Test 07/27/17 10:20 07/27/17 13:00 07/28/17 05:32 Blood Urea Nitrogen 34 MG/DL (7-18) 43 MG/DL (7-18) Creatinine 1.31 MG/DL (0.60-1.30) 1.58 MG/DL (0.60-1.30) Random Glucose 108 MG/DL (74-106) 131 MG/DL (74-106) Calcium Level 8.3 MG/DL (8.5-10.1) 8.4 MG/DL (8.5-10.1) Phosphorus Level 2.3 MG/DL (2.5-4.9) Magnesium Level 2.4 MG/DL (1.5-2.5) Sodium Level 151 MEQ/L (136-145) 153 MEQ/L (136-145) Potassium Level 3.6 MEQ/L (3.5-5.1) 3.4 MEQ/L (3.5-5.1) Chloride Level 120 MEQ/L (98-107) 119 MEQ/L (98-107) Carbon Dioxide Level 20.0 MEQ/L (21.0-32.0) 27.5 MEQ/L (21.0-32.0) Anion Gap 11 MEQ/L (5-15) 7 MEQ/L (5-15) Estimat Glomerular Filtration Rate 52 ML/MIN (>89) 42 ML/MIN (>89) Blood Gas Puncture Site RT RADIAL Blood Gas Patient Temperature 98.6 Blood Gas HCO3 20 mmol/L (22-26) Blood Gas Base Excess -4.4 mmol/L (-2-2) Blood Gas Oxygen Saturation 96 % (90-100) Arterial Blood pH 7.38 (7.380-7.420) Arterial Blood Partial Pressure CO2 34 mmHg (38-42) Arterial Blood Partial Pressure O2 97 mmHg (61-120) Arterial Blood Oxygen Content 17.7 Vol % (12.0-20.0) Arterial Blood Carboxyhemoglobin 1.1 % (0-4) Arterial Blood Methemoglobin 0.9 % (0-2) Blood Gas Hemoglobin 13.1 G/DL (12.0-16.0) Oxygen Delivery Device BiPAP Blood Gas Ventilator Setting [id number]/[id number] Blood Gas Inspired Oxygen 45 % White Blood Count 7.9 TH/MM3 (4.0-11.0) Red Blood Count 4.35 MIL/MM3 (4.50-5.90) Hemoglobin 13.7 GM/DL (13.0-17.0) Hematocrit 41.1 % (39.0-51.0) Mean Corpuscular Volume 94.6 FL (80.0-100.0) Mean Corpuscular Hemoglobin 31.5 PG (27.0-34.0) Mean Corpuscular Hemoglobin Concent 33.3 % (32.0-36.0) Red Cell Distribution Width 13.8 % (11.6-17.2) Platelet Count 146 TH/MM3 (150-450) Mean Platelet Volume 8.2 FL (7.0-11.0) Neutrophils (%) (Auto) 94.6 % (16.0-70.0) Lymphocytes (%) (Auto) 2.0 % (9.0-44.0) Monocytes (%) (Auto) 3.3 % (0.0-8.0) Eosinophils (%) (Auto) 0.0 % (0.0-4.0) Basophils (%) (Auto) 0.1 % (0.0-2.0) Neutrophils # (Auto) 7.5 TH/MM3 (1.8-7.7) Lymphocytes # (Auto) 0.2 TH/MM3 (1.0-4.8) Monocytes # (Auto) 0.3 TH/MM3 (0-0.9) Eosinophils # (Auto) 0.0 TH/MM3 (0-0.4) Basophils # (Auto) 0.0 TH/MM3 (0-0.2) CBC Comment DIFF FINAL Differential Comment B-Type Natriuretic Peptide 320 PG/ML (0-100) Result Diagram: 07/28/17 0532 07/28/17 0532 Microbiology Microbiology Date/Time Source Procedure Growth Status 07/23/17 00:24 Blood Peripheral Aerobic Blood Culture - Final NO GROWTH IN 5 DAYS Complete 07/23/17 00:24 Blood Peripheral Anaerobic Blood Culture - Final NO GROWTH IN 5 DAYS Complete Imaging Last Impressions Chest X-Ray 07/25/17 0910 Signed Impressions: Service Date/Time: Tuesday, July 25, 2017 09:35 - CONCLUSION: Mild right middle lobe infiltrate. No significant changes compared to the prior study. Sunil Kennedy MD Head CT 07/23/17 1800 Signed Impressions: Service Date/Time: Sunday, July 23, 2017 22:04 - CONCLUSION: 1. Large evolving infarct in the right MCA distribution with mild localized mass effect. No acute hemorrhage. No significant midline shift. Wilmar Olmstead MD Neck CTA [id number]/22/172236 Signed Impressions: Service Date/Time: Saturday, July 22, 2017 22:51 - CONCLUSION: 1. Calcification in the proximal right internal carotid artery causing 50%% lumen narrowing. 2. Calcifications the origin of the great vessels from the aorta and in the left internal carotid artery with out significant luminal narrowing. Tino Lenz MD Head CTA [id number]/22/172236 Signed Impressions: Service Date/Time: Saturday, July 22, 2017 22:51 - CONCLUSION: No evidence of vessel truncation or aneurysm. Tino Lenz MD Cervical Spine CT 07/22/172236 Signed Impressions: Service Date/Time: Saturday, July 22, 2017 22:51 - CONCLUSION: 1. Degenerative changes throughout the cervical spine. 2. No evidence of compression deformity or spondylolisthesis. Tino eLnz MD Abdomen/Pelvis CT 07/22/172236 Signed Impressions: Service Date/Time: Saturday, July 22, 2017 22:51 - CONCLUSION: 1. Severe right hydronephrosis and hydroureter no calcified stones. Findings suggest obstruction at ureteral vesicle junction. Can not exclude a bladder mass. 2. Infrarenal abdominal aortic aneurysms measuring up to 3.7 cm. 3. Several small nodular densities in the anterior right lower lung, incompletely included in the [id number] of the exam. 4. Round low density lesion in the spleen. Tino Lenz MD Assessment and Plan Disease Oriented Problem List: (1) Ischemic stroke (2) COPD exacerbation (3) Pneumonia (4) Hydronephrosis, right Symptom Scale: (1) Shortness of breath 0-10 Scale: Unable to quantify (2) Left-sided weakness 0-10 Scale: Unable to quantify (3) Dysphagia 0-10 Scale: Unable to quantify Pertinent Non-Medical Issues Psychosocial: to Nichelle for 68 years. 3 children, grandchildren and great grandchildren. Lives in [place], visits here a few months of the year. Spiritual: [employer] [place]. Legal: Patient appears capacitated at this time, though I would recommend shared decision making. According to [place] statutes, should he lose capacity, health care proxy decision making would fall to his Eamon Steward. Ethical issues impacting care: No known concerns at this time. . Important Contacts * Nichelle Nick, : [phone] * Andrew Nick, grandson: [phone] . Prognosis Mr. Nick is a 86 year old male with history of CAD, COPD and other comorbidities admitted with large right MCA stroke with dysphagia and left sided weakness. He remains high risk for aspiration and further decline. . Code Status: Alternative Code (Shock and ACLS) Plan * Patient appears capacitated at this time, though I would recommend shared decision making. According to [place] statutes, should he lose capacity, health care proxy decision making would fall to his . iNchelle. * Alternate Code - Shock and ACLS only. No chest compressions or intubation. * Goals: Remain aggressive including NG placement for meds/ feeding short of alternate code status. Met with patient, at bedside, both verbalize aggressive goals. * SYMPTOMS: Dysphagia: secondary to right MCA stroke, failed swallow eval, will monitor may need NG/PEG if no improvement. Family desires artificial nutrition if needed as of today. Left sided weakness: secondary to stroke. Will need PT/ OT and rehab if goals remain aggressive. Dyspnea: due to COPD and pneumonia. On oxygen via high flow NC. High risk for further decline, aspiration. Will monitor. * Palliative care will continue to follow to assist with communication, symptom management and clarification of goals. . Attestation To help prompt me to consider important information that might be impacting today's encounter and assessment, information from prior notes written by myself or my colleagues may have been "brought forward" into today's note. My signature on this note, however, is an attestation that I personally performed the exam, history, and/or decision-making noted today, and, unless otherwise indicated, the interactions with patient, family, and staff as well as the review of records all occurred today. I also attest that the listed assessment and stated plan reflect my best clinical judgment today based on the combination of historical information, prior notes, and today's exam/ interactions. When time spent is documented, it refers only to time spent today by the signer, or if indicated, combined time spent today by collaborating physician/nurse practitioner. Yesenia Sosa Jul 29, 2017 14:26
--- NOTE | 2017-07-29 16:53 | HHI.CCPN ---
Subjective Remarks/Hospital Course Note for 07/27/17: 86 year old male presents with a history of last being seen normal at approximately 9:30 PM while sitting on the couch watching television. The patient then proceeded to take a few large deep breaths and then fell face forward onto the carpeted floor. The patient was unable to get up. He was noted to have at that time a left facial droop, left upper and left lower extremity weakness. He has no prior history of stroke. He has a prior history of brain aneurysm status post clipping about 30 years ago. The patient is awake and alert and is able to follow commands although he does have slurred speech. The patient has a gaze deviation to the right with a palsy with attempting to look to the left. He also has a left-sided facial droop. Stroke alert was called and the case was discussed with Dr. Brown, the neurologist decoration checker. Due to multiple comorbidities abdominal aneurysm and previous head bleed, the patient's family refused the administration of TPA. 07/24: Stable hemodynamics. 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 Urology Service opines that right ureter is no obstructed - no additional treatment unless creatinine rises. 07/25: COPD exacerbation with air trapping and respiratory acidosis. Patient is DNI status but family requests continued aggressive care otherwise. Will transfer to ICU and start BiPAP, steroids, dilators. 07/26: Appears comfortable on NC. No significant wheezing. Talkative. Left hemiplegia persists. Failed swallow eval. 07/27: Back on BiPAP due to hypoxemia. Objective Vital Signs Date Time Temp Pulse Resp B/P (MAP) Pulse Ox O2 Delivery O2 Flow Rate FiO2 07/29/17 16:00 98.4 110 21 177/88 (117) 91 07/29/17 16:00 Nasal Cannula 25.00 50 Intake and Output 07/29/17 07/29/17 07/30/17 08:00 16:00 00:00 Intake Total 450 ml Balance 450 ml Result Diagram: 07/28/17 0532 07/28/17 0532 Imaging Last 24 hours Impressions Neck CTA 07/22/17 2363 Signed Impressions: Service Date/Time: Saturday, July 22, 2017 22:51 - CONCLUSION: 1. Calcification in the proximal right internal carotid artery causing 50%% lumen narrowing. 2. Calcifications the origin of the great vessels from the aorta and in the left internal carotid artery with out significant luminal narrowing. Tino Lenz MD Head CTA 07/22/172236 Signed Impressions: Service Date/Time: Saturday, July 22, 2017 22:51 - CONCLUSION: No evidence of vessel truncation or aneurysm. Tino Lenz MD Cervical Spine CT 07/22/172236 Signed Impressions: Service Date/Time: Saturday, July 22, 2017 22:51 - CONCLUSION: 1. Degenerative changes throughout the cervical spine. 2. No evidence of compression deformity or spondylolisthesis. Tino Lenz MD Abdomen/Pelvis CT 07/22/172236 Signed Impressions: Service Date/Time: Saturday, July 22, 2017 22:51 - CONCLUSION: 1. Severe right hydronephrosis and hydroureter no calcified stones. Findings suggest obstruction at ureteral vesicle junction. Can not exclude a bladder mass. 2. Infrarenal abdominal aortic aneurysms measuring up to 3.7 cm. 3. Several small nodular densities in the anterior right lower lung, incompletely included in the [id number] of the exam. 4. Round low density lesion in the spleen. Tino Lenz MD Objective Remarks GENERAL: Well-nourished, well-developed patient. SKIN: Warm and dry. HEAD: Forehead abrasions on the left side EYES: No scleral icterus. No injection or drainage. NECK: Supple, trachea midline. CARDIOVASCULAR: Regular rate and rhythm without murmurs, gallops, or rubs. RESPIRATORY: Good air entry bilaterally with minimal expiratory wheezing GASTROINTESTINAL: Abdomen soft, non-tender, distended with some skin ecchymosis. MUSCULOSKELETAL: No cyanosis, or edema. NEURO EXAM: Slightly slurred speech without expressive aphasia, left-sided facial droop. The patient has a gaze palsy when attempting to gaze to the left side. Flaccid L hemiplegia A/P Assessment and Plan Acute CVA - No TPA administered due to AAA and family concerns - Aspirin Plavix per neurology - PT and OT as tolerated - Speech evaluation and treatment-keep NPO per speech recommendation COPD, exacerbated with respiratory acidosis - DuoNeb scheduled and when necessary - Antibiotic coverage for bronchitis - Steroids iv - BiPAP PRN - Clinically improving Aortic aneurysm - No intervention indicated - Blood pressure control - Supportive care Hydronephrosis - [place] not to be obstructed by Urologist. - Neurology consult Coronary artery disease - Continue aspirin and Plavix DVT GI prophylaxis - Teds SCDs - Subcutaneous heparin - Pepcid Overall impression: Critically ill following acute CVA, now with exacerbated COPD and respiratory failure. Worsening hypoxemia. Gerber Ramsey MD Jul 29, 2017 16:53
--- NOTE | 2017-07-29 16:54 | HHI.CCPN ---
Subjective Remarks/Hospital Course Note for 07/28/17: 86 year old male presents with a history of last being seen normal at approximately 9:30 PM while sitting on the couch watching television. The patient then proceeded to take a few large deep breaths and then fell face forward onto the carpeted floor. The patient was unable to get up. He was noted to have at that time a left facial droop, left upper and left lower extremity weakness. He has no prior history of stroke. He has a prior history of brain aneurysm status post clipping about 30 years ago. The patient is awake and alert and is able to follow commands although he does have slurred speech. The patient has a gaze deviation to the right with a palsy with attempting to look to the left. He also has a left-sided facial droop. Stroke alert was called and the case was discussed with Dr. Brown, the neurologist line maintainer section. Due to multiple comorbidities abdominal aneurysm and previous head bleed, the patient's family refused the administration of TPA. 07/24: Stable hemodynamics. 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 Urology Service opines that right ureter is no obstructed - no additional treatment unless creatinine rises. 07/25: COPD exacerbation with air trapping and respiratory acidosis. Patient is DNI status but family requests continued aggressive care otherwise. Will transfer to ICU and start BiPAP, steroids, dilators. 07/26: Appears comfortable on NC. No significant wheezing. Talkative. Left hemiplegia persists. Failed swallow eval. 07/27: Back on BiPAP due to hypoxemia. 07/28: Requires BiPAP still. Well diuresed, cultures NGTD. Objective Vital Signs Date Time Temp Pulse Resp B/P (MAP) Pulse Ox O2 Delivery O2 Flow Rate FiO2 07/29/17 16:00 98.4 110 21 177/88 (117) 91 07/29/17 16:00 Nasal Cannula 25.00 50 Intake and Output 07/29/17 07/29/17 07/30/17 08:00 16:00 00:00 Intake Total 450 ml Balance 450 ml Result Diagram: 07/28/17 0532 07/28/17 0532 Imaging Last 24 hours Impressions Neck CTA 07/22/17 3156 Signed Impressions: Service Date/Time: Saturday, July 22, 2017 22:51 - CONCLUSION: 1. Calcification in the proximal right internal carotid artery causing 50%% lumen narrowing. 2. Calcifications the origin of the great vessels from the aorta and in the left internal carotid artery with out significant luminal narrowing. Tino Lenz MD Head CTA 07/22/172236 Signed Impressions: Service Date/Time: Saturday, July 22, 2017 22:51 - CONCLUSION: No evidence of vessel truncation or aneurysm. Tino Lenz MD Cervical Spine CT 07/22/172236 Signed Impressions: Service Date/Time: Saturday, July 22, 2017 22:51 - CONCLUSION: 1. Degenerative changes throughout the cervical spine. 2. No evidence of compression deformity or spondylolisthesis. Tino Lenz MD Abdomen/Pelvis CT 07/22/172236 Signed Impressions: Service Date/Time: Saturday, July 22, 2017 22:51 - CONCLUSION: 1. Severe right hydronephrosis and hydroureter no calcified stones. Findings suggest obstruction at ureteral vesicle junction. Can not exclude a bladder mass. 2. Infrarenal abdominal aortic aneurysms measuring up to 3.7 cm. 3. Several small nodular densities in the anterior right lower lung, incompletely included in the [id number] of the exam. 4. Round low density lesion in the spleen. Tino Lenz MD Objective Remarks GENERAL: Well-nourished, well-developed patient. SKIN: Warm and dry. HEAD: Forehead abrasions on the left side EYES: No scleral icterus. No injection or drainage. NECK: Supple, trachea midline. CARDIOVASCULAR: Regular rate and rhythm without murmurs, gallops, or rubs. No JVD. RESPIRATORY: Good air entry bilaterally with minimal expiratory wheezing, increased work however. GASTROINTESTINAL: Abdomen soft, non-tender, distended with some skin ecchymosis. MUSCULOSKELETAL: No cyanosis, or edema. Well perfused. NEURO EXAM: Slightly slurred speech without expressive aphasia, left-sided facial droop. The patient has a gaze palsy when attempting to gaze to the left side. Flaccid L hemiplegia A/P Assessment and Plan Acute CVA - No TPA administered due to AAA and family concerns - Aspirin Plavix per neurology - PT and OT as tolerated - Speech evaluation and treatment-keep NPO per speech recommendation COPD, exacerbated with respiratory acidosis - DuoNeb scheduled and when necessary - Antibiotic coverage for bronchitis - Steroids iv - BiPAP PRN - Clinically improving Aortic aneurysm - No intervention indicated - Blood pressure control - Supportive care Hydronephrosis - [place] not to be obstructed by Urologist. - Neurology consult Coronary artery disease - Continue aspirin and Plavix DVT GI prophylaxis - Teds SCDs - Subcutaneous heparin - Pepcid Overall impression: Critically ill following acute CVA, now with exacerbated COPD and respiratory failure. Worsening hypoxemia. Gerber Ramsey MD Jul 29, 2017 16:54
--- NOTE | 2017-07-29 16:55 | HHI.CCPN ---
Subjective Remarks/Hospital Course Note for 07/29/17: 86 year old male presents with a history of last being seen normal at approximately 9:30 PM while sitting on the couch watching television. The patient then proceeded to take a few large deep breaths and then fell face forward onto the carpeted floor. The patient was unable to get up. He was noted to have at that time a left facial droop, left upper and left lower extremity weakness. He has no prior history of stroke. He has a prior history of brain aneurysm status post clipping about 30 years ago. The patient is awake and alert and is able to follow commands although he does have slurred speech. The patient has a gaze deviation to the right with a palsy with attempting to look to the left. He also has a left-sided facial droop. Stroke alert was called and the case was discussed with Dr. Brown, the neurologist aviation engineer. Due to multiple comorbidities abdominal aneurysm and previous head bleed, the patient's family refused the administration of TPA. 07/24: Stable hemodynamics. 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 Urology Service opines that right ureter is no obstructed - no additional treatment unless creatinine rises. 07/25: COPD exacerbation with air trapping and respiratory acidosis. Patient is DNI status but family requests continued aggressive care otherwise. Will transfer to ICU and start BiPAP, steroids, dilators. 07/26: Appears comfortable on NC. No significant wheezing. Talkative. Left hemiplegia persists. Failed swallow eval. 07/27: Back on BiPAP due to hypoxemia. 07/28: Requires BiPAP still. Well diuresed, cultures NGTD. Objective Vital Signs Date Time Temp Pulse Resp B/P (MAP) Pulse Ox O2 Delivery O2 Flow Rate FiO2 07/29/17 16:00 98.4 110 21 177/88 (117) 91 07/29/17 16:00 Nasal Cannula 25.00 50 Intake and Output 07/29/17 07/29/17 07/30/17 08:00 16:00 00:00 Intake Total 450 ml Balance 450 ml Result Diagram: 07/28/17 0532 07/28/17 0532 Imaging Last 24 hours Impressions Neck CTA 07/22/17 8745 Signed Impressions: Service Date/Time: Saturday, July 22, 2017 22:51 - CONCLUSION: 1. Calcification in the proximal right internal carotid artery causing 50%% lumen narrowing. 2. Calcifications the origin of the great vessels from the aorta and in the left internal carotid artery with out significant luminal narrowing. Tino Lenz MD Head CTA 07/22/172236 Signed Impressions: Service Date/Time: Saturday, July 22, 2017 22:51 - CONCLUSION: No evidence of vessel truncation or aneurysm. Tino Lenz MD Cervical Spine CT 07/22/172236 Signed Impressions: Service Date/Time: Saturday, July 22, 2017 22:51 - CONCLUSION: 1. Degenerative changes throughout the cervical spine. 2. No evidence of compression deformity or spondylolisthesis. Tino Lenz MD Abdomen/Pelvis CT 07/22/172236 Signed Impressions: Service Date/Time: Saturday, July 22, 2017 22:51 - CONCLUSION: 1. Severe right hydronephrosis and hydroureter no calcified stones. Findings suggest obstruction at ureteral vesicle junction. Can not exclude a bladder mass. 2. Infrarenal abdominal aortic aneurysms measuring up to 3.7 cm. 3. Several small nodular densities in the anterior right lower lung, incompletely included in the [id number] of the exam. 4. Round low density lesion in the spleen. Tino Lenz MD Objective Remarks GENERAL: Well-nourished, well-developed patient. SKIN: Warm and dry. HEAD: Forehead abrasions on the left side EYES: No scleral icterus. No injection or drainage. NECK: Supple, trachea midline. CARDIOVASCULAR: Regular rate and rhythm without murmurs, gallops, or rubs. No JVD. RESPIRATORY: Good air entry bilaterally with minimal expiratory wheezing, increased work however. GASTROINTESTINAL: Abdomen soft, non-tender, distended with some skin ecchymosis. MUSCULOSKELETAL: No cyanosis, or edema. Well perfused. NEURO EXAM: Slightly slurred speech without expressive aphasia, left-sided facial droop. The patient has a gaze palsy when attempting to gaze to the left side. Flaccid L hemiplegia A/P Assessment and Plan Acute CVA - No TPA administered due to AAA and family concerns - Aspirin Plavix per neurology - PT and OT as tolerated - Speech evaluation and treatment-keep NPO per speech recommendation COPD, exacerbated with respiratory acidosis - DuoNeb scheduled and when necessary - Antibiotic coverage for bronchitis - Steroids iv - BiPAP PRN - Clinically improving Aortic aneurysm - No intervention indicated - Blood pressure control - Supportive care Hydronephrosis - Rosamond not to be obstructed by Urologist. - Neurology consult Coronary artery disease - Continue aspirin and Plavix DVT GI prophylaxis - Teds SCDs - Subcutaneous heparin - Pepcid Overall impression: Critically ill following acute CVA and hypoxemic respiratory failure. Worsening hypoxemia, still requiring BiPAP Gerber Ramsey MD Jul 29, 2017 16:55
[2017-07-29] MEDS ORDERED: FUROSEMIDE 40 MG/4 ML VIAL IV PUSH ONE (17:15)
[2017-07-29] MEDS: MORPHINE SULFATE 2 MG/ML INJ IV PRN (22:57)
[2017-07-30] VITALS (14 sets, daily range): BP systolic 149–192; BP diastolic 71–117; PULSE 100–122; RESP 20–28; TEMP 98.5–99; O2SAT 92–95
[2017-07-30] MEDS: HEPARIN SODIUM - SQ 10,000 UNITS/ML VIAL SQ SCH ×3 (01:17→17:33)
[2017-07-30] MEDS: MORPHINE SULFATE 2 MG/ML INJ IV PRN (01:17)
[2017-07-30] MEDS: hydrALAZINE HCL 20 MG/ML VIAL IV PUSH PRN ×3 (03:05→18:17)
[2017-07-30] MEDS: CHLORHEXIDINE GLUCONATE 2 % 1 PACK (2 CLOTHS) TOP SCH (03:28)
[2017-07-30] MEDS: methylPREDNISolone SOD SUCC 125 MG/2 ML VIAL IV PUSH SCH ×3 (05:47→22:13)
[2017-07-30] MEDS: DOCUSATE SODIUM 50 MG/SENNA 8.6 MG TAB PO SCH ×2 (09:00→20:16)
[2017-07-30] MEDS: SODIUM CHLORIDE 0.9% FLUSH 10 ML FLUSH IV FLUSH SCH ×2 (09:34→20:18)
[2017-07-30] MEDS: FAMOTIDINE 20 MG/2 ML VIAL IV PUSH SCH ×2 (09:34→20:20)
[2017-07-30] MEDS: ASPIRIN 300 MG SUPP RECTAL SCH (09:37)
[2017-07-30] MEDS ORDERED: NS + KCL 20 MEQ INJ 1,000 ML IV SCH (10:15)
--- NOTE | 2017-07-30 10:17 | HHI.CCPN ---
Subjective Remarks/Hospital Course Note for 07/28/17: 86 year old male presents with a history of last being seen normal at approximately 9:30 PM while sitting on the couch watching television. The patient then proceeded to take a few large deep breaths and then fell face forward onto the carpeted floor. The patient was unable to get up. He was noted to have at that time a left facial droop, left upper and left lower extremity weakness. He has no prior history of stroke. He has a prior history of brain aneurysm status post clipping about 30 years ago. The patient is awake and alert and is able to follow commands although he does have slurred speech. The patient has a gaze deviation to the right with a palsy with attempting to look to the left. He also has a left-sided facial droop. Stroke alert was called and the case was discussed with Dr. Brown, the neurologist stenocaptioner. Due to multiple comorbidities abdominal aneurysm and previous head bleed, the patient's family refused the administration of TPA. 07/24: Stable hemodynamics. 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 Urology Service opines that right ureter is no obstructed - no additional treatment unless creatinine rises. 07/25: COPD exacerbation with air trapping and respiratory acidosis. Patient is DNI status but family requests continued aggressive care otherwise. Will transfer to ICU and start BiPAP, steroids, dilators. 07/26: Appears comfortable on NC. No significant wheezing. Talkative. Left hemiplegia persists. Failed swallow eval. 07/27: Back on BiPAP due to hypoxemia. 07/28: Requires BiPAP still. Well diuresed, cultures NGTD. 07/29: Taking PO acceptably. 07/30: Can't tolerate PO. Family requests PEG. Long talk with daughter who states he would not want to live like this. wants everything done. Objective Vital Signs Date Time Temp Pulse Resp B/P (MAP) Pulse Ox O2 Delivery O2 Flow Rate FiO2 07/30/17 09:13 94 High Flow Nasal Cannula 25.00 50 07/30/17 08:00 98.6 122 24 189/117 (141) Intake and Output 07/30/17 07/30/17 07/31/17 08:00 16:00 00:00 Intake Total 0 ml Output Total 2400 ml Balance -2400 ml Result Diagram: 07/28/17 0532 07/28/17 0532 Imaging Last 24 hours Impressions Neck CTA 07/22/172236 Signed Impressions: Service Date/Time: Saturday, July 22, 2017 22:51 - CONCLUSION: 1. Calcification in the proximal right internal carotid artery causing 50%% lumen narrowing. 2. Calcifications the origin of the great vessels from the aorta and in the left internal carotid artery with out significant luminal narrowing. Tino Lenz MD Head CTA 07/22/172236 Signed Impressions: Service Date/Time: Saturday, July 22, 2017 22:51 - CONCLUSION: No evidence of vessel truncation or aneurysm. Tino Lenz MD Cervical Spine CT 07/22/172236 Signed Impressions: Service Date/Time: Saturday, July 22, 2017 22:51 - CONCLUSION: 1. Degenerative changes throughout the cervical spine. 2. No evidence of compression deformity or spondylolisthesis. Tino Lenz MD Abdomen/Pelvis CT 07/22/172236 Signed Impressions: Service Date/Time: Saturday, July 22, 2017 22:51 - CONCLUSION: 1. Severe right hydronephrosis and hydroureter no calcified stones. Findings suggest obstruction at ureteral vesicle junction. Can not exclude a bladder mass. 2. Infrarenal abdominal aortic aneurysms measuring up to 3.7 cm. 3. Several small nodular densities in the anterior right lower lung, incompletely included in the [id number] of the exam. 4. Round low density lesion in the spleen. Tino Lenz MD Objective Remarks GENERAL: Well-nourished, well-developed patient. SKIN: Warm and dry. HEAD: Forehead abrasions on the left side EYES: No scleral icterus. No injection or drainage. NECK: Supple, trachea midline. CARDIOVASCULAR: Regular rate and rhythm without murmurs, gallops, or rubs. No JVD. RESPIRATORY: Good air entry bilaterally with no expiratory wheezing, increased work however. GASTROINTESTINAL: Abdomen soft, non-tender, distended with some skin ecchymosis. MUSCULOSKELETAL: No cyanosis, or edema. Well perfused. NEURO EXAM: Slightly slurred speech without expressive aphasia, left-sided facial droop. The patient has a gaze palsy when attempting to gaze to the left side. Flaccid L hemiplegia. A/P Assessment and Plan Acute CVA - No TPA administered due to AAA and family concerns - Aspirin Plavix per neurology - PT and OT as tolerated - Speech evaluation and treatment-keep NPO per speech recommendation COPD, exacerbated with respiratory acidosis - DuoNeb scheduled and when necessary - Antibiotic coverage for bronchitis - Steroids iv - BiPAP PRN - Clinically improving Aortic aneurysm - No intervention indicated - Blood pressure control - Supportive care Hydronephrosis - Yoder not to be obstructed by Urologist. - Neurology consult Coronary artery disease - Continue aspirin and Plavix DVT GI prophylaxis - Teds SCDs - Subcutaneous heparin - Pepcid Overall impression: Critically ill following acute large right MCA ischemic CVA and hypoxemic respiratory failure. Worsening hypoxemia, still requiring BiPAP hs. Swallow inadequate, family wants PEG. Gerber Ramsey MD Jul 30, 2017 10:17
[2017-07-30 10:41] LABS: BICARBONATE 26.7 MEQ/L (21.0-32.0); POTASSIUM 3.7 MEQ/L (3.5-5.1)
[2017-07-30] MEDS: ZIPRASIDONE MESYLATE 20 MG VIAL IM PRN (11:55)
--- NOTE | 2017-07-30 12:33 | HHI.HCPN ---
Reason for visit a. To assist with evaluation and management of symptoms including: dyspnea, left sided weakness, dysphagia. b. To assist medical decision maker(s) with: better understanding of current medical conditions; weighing benefits/burdens of medical treatment options; making medical treatment decisions. . Subjective/Interval History Patient seen and examined in ICU. at bedside. Also present nurse and GI, SUGAR COATING HAND. Patient on high flow oxygen via NC. Oxygen stats running 92-94. Hypertensive ( 189/117). Tachycardic rate 105-120. Breathing labored at rest after transfer from stretcher chair to bed. Patient is awake. Speech remains slurred. Left facial droop noted. Left side flaccid. Moves right side on command. He denies pain. He reports shortness of breath at rest. He is frustrated. Failed swallow test. GI was consulted for possible PEG tube placement, spoke with GI who report patient not a candidate for PEG tube due to respiratory status and associated risks. Has PRN Morphine 2mg IV every 2 hours PRN. He has had 2 doses in the past 24 hours. No new labs or imaging. . Family/friend interactions Met with , grandson (Peterson) and his . Medical update provided including respiratory status, nutritional status and that GI feels he is too unstable from respiratory standpoint to undergo PEG tube. NG attempts have been unsuccessful. Reviewed likely continued aspiration pneumonia and associated respiratory decline. Reviewed patient will need group home SNF placement. Peterson verbalizes that patient WOULD NOT want that. Reviewed risks and benefits of options including alternative to transition to comfort with hospice support, even allowing pt to eat understanding the risk. Family will discuss options before making further decisions. Palliative care number provided. Family appreciates time spent. continues to struggle with the thought of losing her and is appropriately tearful. . Advance Directives Living Will: Never completed Health Care Surrogate: Never completed Durable Power of Tube Former Operator: Never completed Advance Directive Specifics Health Care Surrogate(s): Patient appears capacitated at this time, though I would recommend shared decision making. According to [place] statutes, should he lose capacity, health care proxy decision making would fall to his . Nichelle. . Significant change in goals: Alternate Code: Shock and ACLS only. Family considering options continued aggressive care vs comfort measures, not yet ready to make a decision. . Objective Vital Signs Date Time Temp Pulse Resp B/P (MAP) Pulse Ox O2 Delivery O2 Flow Rate FiO2 07/30/17 10:00 120 07/30/17 09:13 94 High Flow Nasal Cannula 25.00 50 07/30/17 08:00 93 Nasal Cannula 25.00 Staff Air Tactical Officer 07/30/17 08:00 98.6 122 24 189/117 (141) 93 07/30/17 08:00 122 07/30/17 06:00 105 07/30/17 04:00 115 07/30/17 04:00 98.9 115 22 192/80 (117) 92 07/30/17 04:00 92 Nasal Cannula 07/30/17 02:00 114 07/30/17 00:00 100 07/30/17 00:00 98.7 100 28 159/82 (107) 92 07/30/17 00:00 Nasal Cannula 25.00 07/29/17 22:00 122 07/29/17 20:00 95 Nasal Cannula 25.00 07/29/17 20:00 111 07/29/17 20:00 98.6 111 22 184/84 (117) 92 07/29/17 19:59 93 High Flow Nasal Cannula 25.00 50 07/29/17 18:00 112 07/29/17 16:00 98.4 110 21 177/88 (117) 91 07/29/17 16:00 110 07/29/17 16:00 91 Nasal Cannula 25.00 50 07/29/17 14:00 110 Intake & Output 07/30/17 07/30/17 07:00 19:00 Intake Total 0 ml Output Total 2400 ml Balance -2400 ml Intake Oral 0 ml IV Total 0 ml Tube Feeding 0 ml Output Urine Total 2400 ml # Bowel Movements 0 Physical Exam CONSTITUTIONAL/GENERAL: This is an adequately nourished patient, awakens and communicates with slurred speech. TUBES/LINES/DRAINS:O2 NC high flow, PIV bilaterally, SCDs SKIN: No jaundice, rashes, or lesions. Ecchymoses on upper extremities. No wounds seen anteriorly. Skin temperature appropriate. Not diaphoretic. EYES: Eyes open. CARDIOVASCULAR: Tachycardic. RESPIRATORY/CHEST: Labored respirations at rest on high flow NC. using accessory muscles, scattered course breath sounds. GASTROINTESTINAL: Abdomen soft, non-tender, distended. No guarding. Bowel sounds present. GENITOURINARY: Without palpable bladder distension. MUSCULOSKELETAL: Extremities without clubbing, cyanosis, or edema. No mottling or clubbing. NEUROLOGICAL: Lethargic. Left facial droop. Left upper and lower extremity flaccid. PSYCHIATRIC: No obvious anxiety/depression. . Diagnostic Tests Laboratory Laboratory Tests Test 07/27/17 13:00 07/28/17 05:32 07/30/17 09:30 Blood Gas Puncture Site RT RADIAL Blood Gas Patient Temperature 98.6 Blood Gas HCO3 20 mmol/L (22-26) Blood Gas Base Excess -4.4 mmol/L (-2-2) Blood Gas Oxygen Saturation 96 % (90-100) Arterial Blood pH 7.38 (7.380-7.420) Arterial Blood Partial Pressure CO2 34 mmHg (38-42) Arterial Blood Partial Pressure O2 97 mmHg (61-120) Arterial Blood Oxygen Content 17.7 Vol % (12.0-20.0) Arterial Blood Carboxyhemoglobin 1.1 % (0-4) Arterial Blood Methemoglobin 0.9 % (0-2) Blood Gas Hemoglobin 13.1 G/DL (12.0-16.0) Oxygen Delivery Device BiPAP Blood Gas Ventilator Setting [id number] Blood Gas Inspired Oxygen 45 % White Blood Count 7.9 TH/MM3 (4.0-11.0) Red Blood Count 4.35 MIL/MM3 (4.50-5.90) Hemoglobin 13.7 GM/DL (13.0-17.0) Hematocrit 41.1 % (39.0-51.0) Mean Corpuscular Volume 94.6 FL (80.0-100.0) Mean Corpuscular Hemoglobin 31.5 PG (27.0-34.0) Mean Corpuscular Hemoglobin Concent 33.3 % (32.0-36.0) Red Cell Distribution Width 13.8 % (11.6-17.2) Platelet Count 146 TH/MM3 (150-450) Mean Platelet Volume 8.2 FL (7.0-11.0) Neutrophils (%) (Auto) 94.6 % (16.0-70.0) Lymphocytes (%) (Auto) 2.0 % (9.0-44.0) Monocytes (%) (Auto) 3.3 % (0.0-8.0) Eosinophils (%) (Auto) 0.0 % (0.0-4.0) Basophils (%) (Auto) 0.1 % (0.0-2.0) Neutrophils # (Auto) 7.5 TH/MM3 (1.8-7.7) Lymphocytes # (Auto) 0.2 TH/MM3 (1.0-4.8) Monocytes # (Auto) 0.3 TH/MM3 (0-0.9) Eosinophils # (Auto) 0.0 TH/MM3 (0-0.4) Basophils # (Auto) 0.0 TH/MM3 (0-0.2) CBC Comment DIFF FINAL Differential Comment Blood Urea Nitrogen 43 MG/DL (7-18) 61 MG/DL (7-18) Creatinine 1.58 MG/DL (0.60-1.30) 1.80 MG/DL (0.60-1.30) Random Glucose 131 MG/DL (74-106) 128 MG/DL (74-106) Calcium Level 8.4 MG/DL (8.5-10.1) 8.8 MG/DL (8.5-10.1) Sodium Level 153 MEQ/L (136-145) 166 MEQ/L (136-145) Potassium Level 3.4 MEQ/L (3.5-5.1) 3.7 MEQ/L (3.5-5.1) Chloride Level 119 MEQ/L (98-107) 130 MEQ/L (98-107) Carbon Dioxide Level 27.5 MEQ/L (21.0-32.0) 26.7 MEQ/L (21.0-32.0) Anion Gap 7 MEQ/L (5-15) 9 MEQ/L (5-15) Estimat Glomerular Filtration Rate 42 ML/MIN (>89) 36 ML/MIN (>89) B-Type Natriuretic Peptide 320 PG/ML (0-100) Result Diagram: 07/28/17 0532 07/30/17 0930 Microbiology Microbiology Date/Time Source Procedure Growth Status 07/23/17 00:24 Blood Peripheral Aerobic Blood Culture - Final NO GROWTH IN 5 DAYS Complete 07/23/17 00:24 Blood Peripheral Anaerobic Blood Culture - Final NO GROWTH IN 5 DAYS Complete Imaging Last Impressions Chest X-Ray 07/25/17 0910 Signed Impressions: Service Date/Time: Tuesday, July 25, 2017 09:35 - CONCLUSION: Mild right middle lobe infiltrate. No significant changes compared to the prior study. Sunil Kennedy MD Head CT 07/23/17 1800 Signed Impressions: Service Date/Time: Sunday, July 23, 2017 22:04 - CONCLUSION: 1. Large evolving infarct in the right MCA distribution with mild localized mass effect. No acute hemorrhage. No significant midline shift. Wilmar Olmstead MD Neck CTA 07/22/172236 Signed Impressions: Service Date/Time: Saturday, July 22, 2017 22:51 - CONCLUSION: 1. Calcification in the proximal right internal carotid artery causing 50%% lumen narrowing. 2. Calcifications the origin of the great vessels from the aorta and in the left internal carotid artery with out significant luminal narrowing. Tino Lenz MD Head CTA 07/22/172236 Signed Impressions: Service Date/Time: Saturday, July 22, 2017 22:51 - CONCLUSION: No evidence of vessel truncation or aneurysm. Tino Lenz MD Cervical Spine CT 07/22/172236 Signed Impressions: Service Date/Time: Saturday, July 22, 2017 22:51 - CONCLUSION: 1. Degenerative changes throughout the cervical spine. 2. No evidence of compression deformity or spondylolisthesis. Tino Lenz MD Abdomen/Pelvis CT 07/22/172236 Signed Impressions: Service Date/Time: Saturday, July 22, 2017 22:51 - CONCLUSION: 1. Severe right hydronephrosis and hydroureter no calcified stones. Findings suggest obstruction at ureteral vesicle junction. Can not exclude a bladder mass. 2. Infrarenal abdominal aortic aneurysms measuring up to 3.7 cm. 3. Several small nodular densities in the anterior right lower lung, incompletely included in the [id number] of the exam. 4. Round low density lesion in the spleen. Tino Lenz MD Assessment and Plan Disease Oriented Problem List: (1) Ischemic stroke (2) COPD exacerbation (3) Pneumonia (4) Hydronephrosis, right Symptom Scale: (1) Shortness of breath 0-10 Scale: Unable to quantify (2) Left-sided weakness 0-10 Scale: Unable to quantify (3) Dysphagia 0-10 Scale: Unable to quantify Pertinent Non-Medical Issues Psychosocial: to Nichelle for 68 years. 3 children, grandchildren and great grandchildren. Lives in [place], visits here a few months of the year. Spiritual: [employer] [place]. Legal: Patient appears capacitated at this time, though I would recommend shared decision making. According to [place] statutes, should he lose capacity, health care proxy decision making would fall to his . Nichelle. Ethical issues impacting care: No known concerns at this time. . Important Contacts * Nichelle Nick, : [phone] * Andrew Nick, grandson: [phone] . Prognosis Mr. Nick is a 86 year old male with history of CAD, COPD and other comorbidities admitted with large right MCA stroke with dysphagia and left sided weakness. He remains high risk for aspiration and further decline. . Code Status: Alternative Code (Shock and ACLS) Plan * Patient appears capacitated at this time, though I would recommend shared decision making. According to [place] statutes, should he lose capacity, health care proxy decision making would fall to his . Nichelle. * Alternate Code - Shock and ACLS only. No chest compressions or intubation. * Goals: Met with , grandson (Peterson) and his . Medical update provided including respiratory status, nutritional status and that GI feels he is too unstable from respiratory standpoint to undergo PEG tube. NG attempts have been unsuccessful. Reviewed likely continued aspiration pneumonia and associated respiratory decline. Reviewed patient will need group home SNF placement. Peterson verbalizes that patient WOULD NOT want that. Reviewed risks and benefits of options including alternative to transition to comfort with hospice support, even allowing pt to eat understanding the risk. Family will discuss options before making further decisions. Palliative care number provided. Family appreciates time spent. continues to struggle with the thought of losing her and is appropriately tearful. * SYMPTOMS: Dysphagia: secondary to right MCA stroke, failed swallow eval, will monitor may need NG/PEG if no improvement. Family desires artificial nutrition if needed as of today. Left sided weakness: secondary to stroke. Will need PT/ OT and rehab if goals remain aggressive. Dyspnea: due to COPD and pneumonia. On oxygen via high flow NC. High risk for further decline, aspiration. Will monitor. * Palliative care will continue to follow to assist with communication, symptom management and clarification of goals. . Attestation To help prompt me to consider important information that might be impacting today's encounter and assessment, information from prior notes written by myself or my colleagues may have been "brought forward" into today's note. My signature on this note, however, is an attestation that I personally performed the exam, history, and/or decision-making noted today, and, unless otherwise indicated, the interactions with patient, family, and staff as well as the review of records all occurred today. I also attest that the listed assessment and stated plan reflect my best clinical judgment today based on the combination of historical information, prior notes, and today's exam/ interactions. When time spent is documented, it refers only to time spent today by the signer, or if indicated, combined time spent today by collaborating physician/nurse practitioner. Yesenia Sosa Jul 30, 2017 12:33
--- NOTE | 2017-07-30 12:36 | PD.CONS ---
HPI History of Present Illness This is a 86 year old male who presented with slurred speech adn left facial droop. 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 Family refused tPa d/t pt having aortic aneurysm. Pt has refused repeated NGT insertion attempts. GI has been consulted for PEG tube placement. Pt currently having COPD exacerbation and has been alternating bet needing bipap and high flow o2. (Lisa Ojeda) PFSH Past Medical History Hypertension COPD Coronary artery disease post 3 stents Aneurysm clipping (30 years ago) Prostate cancer s/p brachytherapy 15 years ago Prior [place] Vertigo GERD Hyperlipidemia Hemorrhoids Umbilical hernia Constipation Chronic abdominal distention H/O GI bleed . Past Surgical History Prostatectomy Cardiac catheterization with coronary stent placement. Brachytherapy Tonsillectomy and adenoidectomy Left back, neck, ear and top of head surgery for basal cell cancer removal Back surgery 1963 Craniectomy . (Lisa Ojeda) Coded Allergies: No Known Allergies (Unverified , 07/22/17) Family History Father of CVA age 60. . Social History noncontributory (Lisa Ojeda) Review of Systems ROS noncontributory (Lisa Ojeda) GI Exam Vitals I&O Vital Signs Date Time Temp Pulse Resp B/P (MAP) Pulse Ox O2 Delivery O2 Flow Rate FiO2 07/30/17 10:00 120 07/30/17 09:13 94 High Flow Nasal Cannula 25.00 50 07/30/17 08:00 93 Nasal Cannula 25.00 Topographical Surveyor 07/30/17 08:00 98.6 122 24 189/117 (141) 93 07/30/17 08:00 122 07/30/17 06:00 105 07/30/17 04:00 115 07/30/17 04:00 98.9 115 22 192/80 (117) 92 07/30/17 04:00 92 Nasal Cannula 07/30/17 02:00 114 07/30/17 00:00 100 07/30/17 00:00 98.7 100 28 159/82 (107) 92 07/30/17 00:00 Nasal Cannula 25.00 07/29/17 22:00 122 07/29/17 20:00 95 Nasal Cannula 25.00 07/29/17 20:00 111 07/29/17 20:00 98.6 111 22 184/84 (117) 92 07/29/17 19:59 93 High Flow Nasal Cannula 25.00 50 07/29/17 18:00 112 07/29/17 16:00 98.4 110 21 177/88 (117) 91 07/29/17 16:00 110 07/29/17 16:00 91 Nasal Cannula 25.00 50 07/29/17 14:00 110 I/O 07/29/17 07/29/17 07/29/17 07/30/17 07/30/17 07/30/17 07:00 15:00 23:00 07:00 15:00 23:00 Intake Total 450 ml 350 ml 0 ml Output Total 850 ml 2400 ml Balance 450 ml 350 ml -850 ml -2400 ml Intake Oral 0 ml 0 ml IV Total 450 ml 350 ml 0 ml Tube Feeding 0 ml Output Urine Total 850 ml 2400 ml # Voids 3 # Bowel Movements 0 0 0 Imaging Last Impressions Chest X-Ray 07/25/17 0910 Signed Impressions: Service Date/Time: Tuesday, July 25, 2017 09:35 - CONCLUSION: Mild right middle lobe infiltrate. No significant changes compared to the prior study. Sunil Kennedy MD Head CT 07/23/17 1800 Signed Impressions: Service Date/Time: Sunday, July 23, 2017 22:04 - CONCLUSION: 1. Large evolving infarct in the right MCA distribution with mild localized mass effect. No acute hemorrhage. No significant midline shift. Wilmar Olmstead MD Neck CTA 07/22/172236 Signed Impressions: Service Date/Time: Saturday, July 22, 2017 22:51 - CONCLUSION: 1. Calcification in the proximal right internal carotid artery causing 50%% lumen narrowing. 2. Calcifications the origin of the great vessels from the aorta and in the left internal carotid artery with out significant luminal narrowing. Tino Lenz MD Head CTA 07/22/172236 Signed Impressions: Service Date/Time: Saturday, July 22, 2017 22:51 - CONCLUSION: No evidence of vessel truncation or aneurysm. Tino Lenz MD Cervical Spine CT 07/22/172236 Signed Impressions: Service Date/Time: Saturday, July 22, 2017 22:51 - CONCLUSION: 1. Degenerative changes throughout the cervical spine. 2. No evidence of compression deformity or spondylolisthesis. Tino Lenz MD Abdomen/Pelvis CT 07/22/177 Signed Impressions: Service Date/Time: Saturday, July 22, 2017 22:51 - CONCLUSION: 1. Severe right hydronephrosis and hydroureter no calcified stones. Findings suggest obstruction at ureteral vesicle junction. Can not exclude a bladder mass. 2. Infrarenal abdominal aortic aneurysms measuring up to 3.7 cm. 3. Several small nodular densities in the anterior right lower lung, incompletely included in the [id number]-[id number] of the exam. 4. Round low density lesion in the spleen. Tino Lenz MD Laboratory Test 07/30/17 09:30 Blood Urea Nitrogen 61 MG/DL Creatinine 1.80 MG/DL Random Glucose 128 MG/DL Calcium Level 8.8 MG/DL Sodium Level 166 MEQ/L Potassium Level 3.7 MEQ/L Chloride Level 130 MEQ/L Carbon Dioxide Level 26.7 MEQ/L Anion Gap 9 MEQ/L Estimat Glomerular Filtration Rate 36 ML/MIN Date/Time Source Procedure Growth Status 07/23/17 00:24 Blood Peripheral Aerobic Blood Culture - Final NO GROWTH IN 5 DAYS Complete 07/23/17 00:24 Blood Peripheral Anaerobic Blood Culture - Final NO GROWTH IN 5 DAYS Complete Physical Examination HEENT: normocephalic; atraumatic; no jaundice. CHEST: coarse CARDIAC: RRR ABDOMEN: Soft, protuberant, nontender; no hepatosplenomegaly; bowel sounds are present in all four quadrants. EXTREMITIES: No clubbing, cyanosis, or edema. SKIN: Normal; no rash; no jaundice. ELECTRONIC PREPRESS TECHNICIAN: lethargic, weak, mildly confused (Lisa Ojeda) Assessment and Plan Plan ASSESSMENT - dysphagia - hx CVA. refused repeated NGT insertions. GI consulted for PEG tube placement. Pt needing high flow o2 and at times bipap. d/w palliative care, RN. family to have discussion shortly. - acute CVA, COPD exacerbation, aortic aneurysm, CAD on plavix PLAN - hold on peg tube placement until respiratory status improves - palliative care following - supportive care - await palliative care mtg with pts family - THis pt seen by myself and Dr Odom and this ntoe is written on his behalf (Lisa Ojeda) Physician Comments Agree with above assessment and plan. Please notify us if needed (Danis Odom MD) Lisa Ojeda Jul 30, 2017 12:36 Danis Odom MD Jul 31, 2017 06:15
[2017-07-30] MEDS: ENALAPRILAT 1.25 MG/ML VIAL IV PUSH PRN (16:21)
--- NOTE | 2017-07-30 19:31 | HHI.PR ---
Subjective Remarks ALERT ON O2/BIPAP NO DITRESS Objective Vital Signs Date Time Temp Pulse Resp B/P (MAP) Pulse Ox O2 Delivery O2 Flow Rate FiO2 07/30/17 18:00 114 07/30/17 16:00 98.5 115 28 186/88 (120) 95 07/30/17 16:00 115 07/30/17 16:00 95 Nasal Cannula 25.00 Print Binding And Finishing Worker 07/30/17 14:00 115 07/30/17 12:00 115 07/30/17 12:00 98.7 115 20 173/77 (109) 92 07/30/17 12:00 92 Nasal Cannula 25.00 Print Binding And Finishing Worker 07/30/17 10:00 120 07/30/17 09:13 94 High Flow Nasal Cannula 25.00 50 07/30/17 08:00 93 Nasal Cannula 25.00 Print Binding And Finishing Worker 07/30/17 08:00 98.6 122 24 189/117 (141) 93 07/30/17 08:00 122 07/30/17 06:00 105 07/30/17 04:00 115 07/30/17 04:00 98.9 115 22 192/80 (117) 92 07/30/17 04:00 92 Nasal Cannula 07/30/17 02:00 114 07/30/17 00:00 100 07/30/17 00:00 98.7 100 28 159/82 (107) 92 07/30/17 00:00 Nasal Cannula 25.00 07/29/17 22:00 122 07/29/17 20:00 95 Nasal Cannula 25.00 07/29/17 20:00 111 07/29/17 20:00 98.6 111 22 184/84 (117) 92 07/29/17 19:59 93 High Flow Nasal Cannula 25.00 50 I/O 07/29/17 07/29/17 07/29/17 07/30/17 07/30/17 07/30/17 07:00 15:00 23:00 07:00 15:00 23:00 Intake Total 450 ml 350 ml 0 ml 0 ml Output Total 850 ml 2400 ml 700 ml Balance 450 ml 350 ml -850 ml -2400 ml -700 ml Intake Oral 0 ml 0 ml 0 ml IV Total 450 ml 350 ml 0 ml Tube Feeding 0 ml Output Urine Total 850 ml 2400 ml 700 ml # Voids 3 4 # Bowel Movements 0 0 0 Result Diagram: 07/28/17 0532 07/30/17 0930 Objective Remarks GENERAL: SKIN: Warm and dry. HEAD: Atraumatic. Normocephalic. EYES: Pupils equal and round. No scleral icterus. No injection or drainage. ENT: No nasal bleeding or discharge. Mucous membranes pink and moist. NECK: Trachea midline. No JVD. CARDIOVASCULAR: Regular rate and rhythm. RESPIRATORY: No accessory muscle use. Clear to auscultation. Breath sounds equal bilaterally. GASTROINTESTINAL: Abdomen soft, non-tender, nondistended. Hepatic and splenic margins not palpable. MUSCULOSKELETAL: Extremities without clubbing, cyanosis, or edema. No obvious deformities. NEUROLOGICAL: Awake and alert. No obvious cranial nerve deficits. Motor grossly within normal limits. Five out of 5 muscle strength in the arms and legs. Normal speech. PSYCHIATRIC: Appropriate mood and affect; insight and judgment normal. Assessment and Plan Assessment and Plan respiratory failure COPD S.P CVA PLAN O2 NEEDED BRONCHODILATORS INCREASE ACTIVITY Justina Horn MD Jul 30, 2017 19:31
[2017-07-30] MEDS ORDERED: niCARdipine INJ 25 MG in SODIUM CHLOR 0.9% 250 ML INJ 240 ML IV PRN ×4 (21:30)
[2017-07-31] VITALS (14 sets, daily range): BP systolic 155–172; BP diastolic 69–94; PULSE 79–116; RESP 14–27; TEMP 98.1–99; O2SAT 92–95
[2017-07-31] MEDS: CHLORHEXIDINE GLUCONATE 2 % 1 PACK (2 CLOTHS) TOP SCH ×2 (00:01→21:46)
[2017-07-31] MEDS: HEPARIN SODIUM - SQ 10,000 UNITS/ML VIAL SQ SCH ×2 (00:21→09:14)
[2017-07-31] MEDS: hydrALAZINE HCL 20 MG/ML VIAL IV PUSH PRN ×2 (01:03→06:00)
[2017-07-31] MEDS: MORPHINE SULFATE 2 MG/ML INJ IV PRN ×4 (03:17→23:58)
[2017-07-31] MEDS: methylPREDNISolone SOD SUCC 125 MG/2 ML VIAL IV PUSH SCH ×3 (05:01→21:45)
--- NOTE | 2017-07-31 05:12 | RADRPT ---
EXAM DATE/TIME: 07/31/2017 04:40 [facility] COMPARISON: No previous studies available for comparison. INDICATIONS : Constipation. MEDICAL HISTORY : Stroke. Cardiovascular disease. Cerebrovascular disease SURGICAL HISTORY : Pacemaker. ENCOUNTER: Initial ACUITY: 1 week PAIN SCORE: Non-responsive. LOCATION: abdomen. FINDINGS: Supine view of the abdomen was performed. The abdominal bowel gas pattern is normal. No abnormal ma sses, calcifications, or organomegaly is seen. Prostate radiation seeds are present. The osseous str uctures are unremarkable. CONCLUSION: No acute disease. Fransico Sadler MD on July 31, 2017 at 5:10 Board Certified Radiologist. This report was verified electronically.
[2017-07-31 06:08] LABS: AUTOMATED NEUTROPHIL # 10.9 TH/MM3 (1.8-7.7); BASOPHIL % 0.1 % (0.0-2.0); HEMATOCRIT 52.9 % (39.0-51.0); LYMPH % 2.4 % (9.0-44.0); LYMPHOCYTE # 0.3 TH/MM3 (1.0-4.8); MEAN CELL VOLUME 96.4 FL (80.0-100.0); MEAN CORPUSCULAR HEMOGLOBIN 30.7 PG (27.0-34.0); MEAN CORPUSCULAR HGB CONC 31.8 % (32.0-36.0); NEUT % 94.5 % (16.0-70.0); PLATELET COUNT 128 TH/MM3 (150-450); RED BLOOD COUNT 5.49 MIL/MM3 (4.50-5.90); RED CELL DISTRIBUTION WIDTH 14.8 % (11.6-17.2); WHITE BLOOD COUNT 11.5 TH/MM3 (4.0-11.0)
[2017-07-31 06:14] LABS: HEMO FLAGS AUTO DIFF
[2017-07-31 06:17] LABS: INTERNATIONAL NORMALIZED RATIO 1.5 RATIO; PROTHROMBIN TIME - PATIENT 14.7 SEC (9.8-11.6)
[2017-07-31 06:56] LABS: BICARBONATE 31.7 MEQ/L (21.0-32.0); INDIRECT BILIRUBIN 0.5 MG/DL (0.0-0.8); TOTAL BILIRUBIN ADULT 0.7 MG/DL (0.2-1.0)
[2017-07-31 07:21] LABS: BANDS 6 % (0-6); MYELOCYTES 1 % (0-0); NEUTROPHIL # MANUAL DIFF 11.3 TH/MM3 (1.8-7.7); POLYS (SEG NEUTROPHILS) 91 % (16-70); WBC DIFF SAMPLE 100
[2017-07-31 07:22] LABS: PLATELET ESTIMATE SMEAR LOW (NORMAL); PLATELET MORPHOLOGY NORMAL (NORMAL); SCAN/DIFF FINAL DIFF MANUAL
--- NOTE | 2017-07-31 07:27 | HHI.CCPN ---
Subjective Remarks/Hospital Course Note for 07/28/17: 86 year old male presents with a history of last being seen normal at approximately 9:30 PM while sitting on the couch watching television. The patient then proceeded to take a few large deep breaths and then fell face forward onto the carpeted floor. The patient was unable to get up. He was noted to have at that time a left facial droop, left upper and left lower extremity weakness. He has no prior history of stroke. He has a prior history of brain aneurysm status post clipping about 30 years ago. The patient is awake and alert and is able to follow commands although he does have slurred speech. The patient has a gaze deviation to the right with a palsy with attempting to look to the left. He also has a left-sided facial droop. Stroke alert was called and the case was discussed with Dr. Brown, the neurologist research home economist. Due to multiple comorbidities abdominal aneurysm and previous head bleed, the patient's family refused the administration of TPA. 07/24: Stable hemodynamics. 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 Urology Service opines that right ureter is no obstructed - no additional treatment unless creatinine rises. 07/25: COPD exacerbation with air trapping and respiratory acidosis. Patient is DNI status but family requests continued aggressive care otherwise. Will transfer to ICU and start BiPAP, steroids, dilators. 07/26: Appears comfortable on NC. No significant wheezing. Talkative. Left hemiplegia persists. Failed swallow eval. 07/27: Back on BiPAP due to hypoxemia. 07/28: Requires BiPAP still. Well diuresed, cultures NGTD. 07/29: Taking PO acceptably. 07/30: Can't tolerate PO. Family requests PEG. Long talk with daughter who states he would not want to live like this. wants everything done. 07/31: Following large MCA stroke patient remains agitated and combative. His Na has drifted up to 170 now - possible DI from atypical antipsychotic. Hgb concentrated considerably now. Random lipase > 2700. TSH low. Will follow hydrate aggressively but attempt to avoid lung problems. Follow lipase and T4. No abdominal pain. Family remains split on aggressive efforts. Grandson now wants PEG tube but DNR status precludes GI placement. We are attempting to arrange PEG with IR using light sedation only. Ideally we'd revoke the DNR long enough to place the PEG, family accepts a short term intubation. Objective Vital Signs Date Time Temp Pulse Resp B/P (MAP) Pulse Ox O2 Delivery O2 Flow Rate FiO2 07/31/17 06:00 116 07/31/17 04:00 94 Nasal Cannula 25.00 Faucets Assembler 07/31/17 04:00 99.0 21 172/94 (120) 07/30/17 20:19 50 Intake and Output 07/31/17 07/31/17 08/01/17 08:00 16:00 00:00 Output Total 350 ml Balance -350 ml Result Diagram: 07/31/17 0538 07/31/17 0538 Imaging Last 24 hours Impressions Neck CTA 07/22/172236 Signed Impressions: Service Date/Time: Saturday, July 22, 2017 22:51 - CONCLUSION: 1. Calcification in the proximal right internal carotid artery causing 50%% lumen narrowing. 2. Calcifications the origin of the great vessels from the aorta and in the left internal carotid artery with out significant luminal narrowing. Tino Lenz MD Head CTA 07/22/172236 Signed Impressions: Service Date/Time: Saturday, July 22, 2017 22:51 - CONCLUSION: No evidence of vessel truncation or aneurysm. Tino Lenz MD Cervical Spine CT 07/22/172236 Signed Impressions: Service Date/Time: Saturday, July 22, 2017 22:51 - CONCLUSION: 1. Degenerative changes throughout the cervical spine. 2. No evidence of compression deformity or spondylolisthesis. Tino Lenz MD Abdomen/Pelvis CT 07/22/172236 Signed Impressions: Service Date/Time: Saturday, July 22, 2017 22:51 - CONCLUSION: 1. Severe right hydronephrosis and hydroureter no calcified stones. Findings suggest obstruction at ureteral vesicle junction. Can not exclude a bladder mass. 2. Infrarenal abdominal aortic aneurysms measuring up to 3.7 cm. 3. Several small nodular densities in the anterior right lower lung, incompletely included in the [id number] of the exam. 4. Round low density lesion in the spleen. Tino Lenz MD Objective Remarks GENERAL: Well-nourished, well-developed patient. SKIN: Warm and dry. HEAD: Forehead abrasions on the left side, healing, clean EYES: No scleral icterus. No injection or drainage. NECK: Supple, trachea midline. CARDIOVASCULAR: Regular rate and rhythm without murmurs, gallops, or rubs. Neck veins flat. RESPIRATORY: Good air entry bilaterally with no expiratory wheezing, increased work however. GASTROINTESTINAL: Abdomen soft, non-tender, distended with some skin ecchymosis. No guarding or peritoneal irritation. MUSCULOSKELETAL: No cyanosis, or edema. Well perfused. NEURO EXAM: Slightly slurred speech without expressive aphasia, left-sided facial droop. The patient has a gaze palsy when attempting to gaze to the left side. Flaccid L hemiplegia. A/P Assessment and Plan Acute CVA - No TPA administered due to AAA and family concerns - Aspirin Plavix per neurology - PT and OT as tolerated - Speech evaluation and treatment-keep NPO per speech recommendation COPD, exacerbated with respiratory acidosis - DuoNeb scheduled and when necessary - Antibiotic coverage for bronchitis - Steroids iv - BiPAP PRN - Clinically improving Aortic aneurysm - No intervention indicated - Blood pressure control - Supportive care Hydronephrosis - [place] not to be obstructed by Urologist. - Neurology consult Coronary artery disease - Continue aspirin and Plavix DVT GI prophylaxis - Teds SCDs - Subcutaneous heparin - Pepcid - Hold heparin for PEG. Hypernatremia - Etiology unclear. - Start D5W, folllow Na. - Stop psych meds Elevate Lipase - Follow clinical exam. May need repeat CT abdomen as patient is difficult to examine. Low TSH - T4 Overall impression: Critically ill following acute large right MCA ischemic CVA and hypoxemic respiratory failure. Worsening hypoxemia, still requiring BiPAP hs. Swallow inadequate, family wants PEG. Now with hypernatremia and concentrated serum, elevated Hgb. We have been trying to keep lungs dry, but this is a bit too much. Gerber Ramsey MD Jul 31, 2017 07:27
[2017-07-31] MEDS: DEXTROSE 5% IN WATE 1000ML INJ 1,000 ML IV SCH ×3 (07:29→17:16)
[2017-07-31] MEDS ORDERED: DEXTROSE 5% IN WATE 1000ML INJ 1,000 ML IV ONE (07:30)
[2017-07-31] MEDS: SODIUM CHLORIDE 0.9% FLUSH 10 ML FLUSH IV FLUSH SCH ×2 (07:30→20:20)
[2017-07-31] MEDS: DOCUSATE SODIUM 50 MG/SENNA 8.6 MG TAB PO SCH ×2 (09:00→19:46)
[2017-07-31] MEDS: LABETALOL HCL 100 MG/20 ML VIAL IV PUSH PRN ×2 (09:11→17:04)
[2017-07-31] MEDS: FAMOTIDINE 20 MG/2 ML VIAL IV PUSH SCH ×2 (09:14→20:20)
[2017-07-31] MEDS: ASPIRIN 300 MG SUPP RECTAL SCH (09:40)
--- NOTE | 2017-07-31 10:27 | HHI.HCPN ---
Palliative care continues to follow Mr. Nick to provide ongoing support for patient and family. Goals of care continuing to evolve. At this time goals remain aggressive short of alternative code (family desires shock and ACLS drugs ). Mr. Nick presents less responsive during my visit; eyes open but does not track or respond to light touch/hand holding. , daughter, and grandson at bedside. verbalizes she wishes he was doing better, continues to appropriately struggle with his medical condition. Family deny any questions or concerns at this time. Offered emotional support. Provided palliative care SW contact information. Family requesting PEG tube placement. Palliative care will continue to follow throughout hospitalization. Ashanti Villalobos, ROCKY Jul 31, 2017 10:27
[2017-07-31 15:07] LABS: BICARBONATE 29.8 MEQ/L (21.0-32.0)
--- NOTE | 2017-07-31 18:15 | HHI.PR ---
Subjective Remarks Obtunded today ON O2/BIPAP NO DITRESS Objective Vital Signs Date Time Temp Pulse Resp B/P (MAP) Pulse Ox O2 Delivery O2 Flow Rate FiO2 07/31/17 16:00 96 Nasal Cannula 25.00 50 Field Service Supervisor 07/31/17 16:00 98.2 100 26 168/94 (118) 95 07/31/17 16:00 100 07/31/17 14:00 100 07/31/17 12:00 92 07/31/17 12:00 96 Nasal Cannula 25.00 50 Field Service Supervisor 07/31/17 12:00 98.3 92 20 155/73 (100) 93 07/31/17 10:00 84 07/31/17 08:39 94 High Flow Nasal Cannula 25.00 50 07/31/17 08:00 98.1 106 14 155/69 (97) 93 07/31/17 08:00 108 07/31/17 08:00 96 Nasal Cannula 25.00 50 Field Service Supervisor 07/31/17 06:00 116 07/31/17 04:00 94 Nasal Cannula 25.00 Field Service Supervisor 07/31/17 04:00 99.0 110 21 172/94 (120) 94 07/31/17 04:00 110 07/31/17 02:00 114 07/31/17 00:00 92 Nasal Cannula 25.00 Field Service Supervisor 07/31/17 00:00 98.8 112 27 155/83 (107) 92 07/31/17 00:00 113 07/30/17 22:00 120 07/30/17 20:19 94 High Flow Nasal Cannula 25.00 50 07/30/17 20:00 113 07/30/17 20:00 99.0 113 24 149/71 (97) 94 07/30/17 20:00 94 Nasal Cannula 25.00 Field Service Supervisor I/O 07/30/17 07/30/17 07/30/17 07/31/17 07/31/17 07/31/17 07:00 15:00 23:00 07:00 15:00 23:00 Intake Total 0 ml 0 ml 1000 ml 1019 ml Output Total 2400 ml 700 ml 350 ml Balance -2400 ml -700 ml -350 ml 1000 ml 1019 ml Intake Oral 0 ml 0 ml IV Total 0 ml 1000 ml 1019 ml Tube Feeding 0 ml Output Urine Total 2400 ml 700 ml 350 ml # Voids 4 1 # Bowel Movements 0 Result Diagram: 07/31/17 0538 07/31/17 1425 Objective Remarks GENERAL: SKIN: Warm and dry. HEAD: Atraumatic. Normocephalic. EYES: Pupils equal and round. No scleral icterus. No injection or drainage. ENT: No nasal bleeding or discharge. Mucous membranes pink and moist. NECK: Trachea midline. No JVD. CARDIOVASCULAR: Regular rate and rhythm. RESPIRATORY: No accessory muscle use. Clear to auscultation. Breath sounds equal bilaterally. GASTROINTESTINAL: Abdomen soft, non-tender, nondistended. Hepatic and splenic margins not palpable. MUSCULOSKELETAL: Extremities without clubbing, cyanosis, or edema. No obvious deformities. NEUROLOGICAL: Awake and alert. No obvious cranial nerve deficits. Motor grossly within normal limits. Five out of 5 muscle strength in the arms and legs. Normal speech. PSYCHIATRIC: Appropriate mood and affect; insight and judgment normal. Assessment and Plan Assessment and Plan respiratory failure COPD S.P CVA PLAN O2 NEEDED BRONCHODILATORS prognosis poor Justina Horn MD Jul 31, 2017 18:15
[2017-07-31 22:00] LABS: BICARBONATE 29.8 MEQ/L (21.0-32.0); POTASSIUM 4.2 MEQ/L (3.5-5.1)
[2017-08-01] VITALS (14 sets, daily range): BP systolic 146–165; BP diastolic 65–88; PULSE 76–100; RESP 20–26; TEMP 97.7–98.5; O2SAT 92–95
[2017-08-01] MEDS: MORPHINE SULFATE 2 MG/ML INJ IV PRN ×6 (04:18→23:33)
[2017-08-01] MEDS: methylPREDNISolone SOD SUCC 125 MG/2 ML VIAL IV PUSH SCH ×2 (06:13→17:08)
[2017-08-01 07:34] LABS: BICARBONATE 31.4 MEQ/L (21.0-32.0); FREE T4 1.28 NG/DL (0.76-1.46); POTASSIUM 4.7 MEQ/L (3.5-5.1)
[2017-08-01] MEDS: FAMOTIDINE 20 MG/2 ML VIAL IV PUSH SCH ×2 (08:19→20:45)
[2017-08-01] MEDS: SODIUM CHLORIDE 0.9% FLUSH 10 ML FLUSH IV FLUSH SCH ×2 (08:19→20:45)
[2017-08-01] MEDS: LABETALOL HCL 100 MG/20 ML VIAL IV PUSH PRN ×2 (08:20→16:51)
[2017-08-01] MEDS: DOCUSATE SODIUM 50 MG/SENNA 8.6 MG TAB PO SCH ×2 (08:22→20:46)
[2017-08-01] MEDS: ASPIRIN 300 MG SUPP RECTAL SCH (09:00)
[2017-08-01] MEDS: DEXTROSE 5% IN WATE 1000ML INJ 1,000 ML IV SCH ×2 (11:34→20:45)
--- NOTE | 2017-08-01 11:42 | HHI.CCPN ---
Subjective Remarks/Hospital Course Note for 07/28/17: 86 year old male presents with a history of last being seen normal at approximately 9:30 PM while sitting on the couch watching television. The patient then proceeded to take a few large deep breaths and then fell face forward onto the carpeted floor. The patient was unable to get up. He was noted to have at that time a left facial droop, left upper and left lower extremity weakness. He has no prior history of stroke. He has a prior history of brain aneurysm status post clipping about 30 years ago. The patient is awake and alert and is able to follow commands although he does have slurred speech. The patient has a gaze deviation to the right with a palsy with attempting to look to the left. He also has a left-sided facial droop. Stroke alert was called and the case was discussed with Dr. Brown, the neurologist trial consultant. Due to multiple comorbidities abdominal aneurysm and previous head bleed, the patient's family refused the administration of TPA. 07/24: Stable hemodynamics. 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 Urology Service opines that right ureter is no obstructed - no additional treatment unless creatinine rises. 07/25: COPD exacerbation with air trapping and respiratory acidosis. Patient is DNI status but family requests continued aggressive care otherwise. Will transfer to ICU and start BiPAP, steroids, dilators. 07/26: Appears comfortable on NC. No significant wheezing. Talkative. Left hemiplegia persists. Failed swallow eval. 07/27: Back on BiPAP due to hypoxemia. 07/28: Requires BiPAP still. Well diuresed, cultures NGTD. 07/29: Taking PO acceptably. 07/30: Can't tolerate PO. Family requests PEG. Long talk with daughter who states he would not want to live like this. wants everything done. 07/31: Following large MCA stroke patient remains agitated and combative. His Na has drifted up to 170 now - possible DI from atypical antipsychotic. Hgb concentrated considerably now. Random lipase > 2700. TSH low. Will follow hydrate aggressively but attempt to avoid lung problems. Follow lipase and T4. No abdominal pain. Family remains split on aggressive efforts. Grandson now wants PEG tube but DNR status precludes GI placement. We are attempting to arrange PEG with IR using light sedation only. Ideally we'd revoke the DNR long enough to place the PEG, family accepts a short term intubation. Subjective: 08/01 Sodium downtrending gradually on D5W. Remains on HFNC 50% 25 L/min. Afebrile. ASA on hold for tentative planning for IR to place PEG tube on Sunday 08/05. Patient is DNR. and daughter are at bedside and state that they would be agreeable for intubation for 24 hours only if needed for PEG. They would not want trach. Family states he has spoke a couple garbled words to them today. Objective Vital Signs Date Time Temp Pulse Resp B/P (MAP) Pulse Ox O2 Delivery O2 Flow Rate FiO2 08/01/17 10:00 77 08/01/17 09:13 20 08/01/17 09:02 95 High Flow Nasal Cannula 25.00 50 08/01/17 08:00 98.3 165/82 (109) Intake and Output 08/01/17 08/01/17 08/01/17 07:59 15:59 23:59 Intake Total 1237 ml Output Total 450 ml Balance 787 ml Result Diagram: 07/31/17 0538 08/01/17 0637 Imaging Last 24 hours Impressions Neck CTA [id number]/22/172236 Signed Impressions: Service Date/Time: Saturday, July 22, 2017 22:51 - CONCLUSION: 1. Calcification in the proximal right internal carotid artery causing 50%% lumen narrowing. 2. Calcifications the origin of the great vessels from the aorta and in the left internal carotid artery with out significant luminal narrowing. Tino Lenz MD Head CTA [id number]/[id number] Signed Impressions: Service Date/Time: Saturday, July 22, 2017 22:51 - CONCLUSION: No evidence of vessel truncation or aneurysm. Tino Lenz MD Cervical Spine CT [id number] Signed Impressions: Service Date/Time: Saturday, July 22, 2017 22:51 - CONCLUSION: 1. Degenerative changes throughout the cervical spine. 2. No evidence of compression deformity or spondylolisthesis. Tino Lenz MD Abdomen/Pelvis CT [id number]/22/172236 Signed Impressions: Service Date/Time: Saturday, July 22, 2017 22:51 - CONCLUSION: 1. Severe right hydronephrosis and hydroureter no calcified stones. Findings suggest obstruction at ureteral vesicle junction. Can not exclude a bladder mass. 2. Infrarenal abdominal aortic aneurysms measuring up to 3.7 cm. 3. Several small nodular densities in the anterior right lower lung, incompletely included in the [id number] of the exam. 4. Round low density lesion in the spleen. Tino Lenz MD Objective Remarks Drips: D5W @ 100 ml/hr. GENERAL: Elderly male who is sitting up in bedside chair on HFNC. SKIN: Warm and dry, adequately perfused. HEAD: Forehead abrasions on the left side, healing, clean EYES: No scleral icterus. No injection or drainage. NECK: Supple, trachea midline. CARDIOVASCULAR: Regular rate and rhythm without murmurs, gallops, or rubs. Neck veins flat. RESPIRATORY: Tachypneic but with equal breath sounds bilaterally. No wheezes or Rales. On high flow nasal cannula 25 L/min ; 50% GASTROINTESTINAL: Abdomen soft, protruberant. Does not appear to have abdominal tenderness or guarding. Bowel sounds present : Condom catheter in place. MUSCULOSKELETAL: No cyanosis, or edema. Well perfused. NEURO EXAM: Moans to noxious stimuli, no audible words during my exam. Left- sided facial droop. The patient has a gaze palsy when attempting to gaze to the left side. Moves RUE and RLE spontaneously but does not follow commands. L hemiplegia - 0/5 LLE with no response to Babinski, absent patellar DTR. 1/5 LUE withdrawal to deep noxious stimuli. Sensation appears intact on the left as he localizes with the right to noxious stimuli on the left. A/P Assessment and Plan NEURO: Acute ischemic stroke, R MCA L hemiplegia and aphasia - No TPA administered due to AAA and family concerns - R hand dominant at baseline. - Aspirin recommended per neurology, currently on hold for IR placement of PEG. - PT and OT - Speech evaluation and treatment-keep NPO per speech recommendation - CTA neck 07/22 - R internal carotid 50% lesion, no intervention. Calcification L carotid without significant narrowing. -CT brain 08/01 - evolving infarct, edema with 2 mm midline shift. RESP: COPD, exacerbated with respiratory acidosis (improved) - DuoNeb q6 hours scheduled and q2h when necessary - on HFNC, wean as tolerated -solumedrol 60 mg IV q8 started 07/29, wean to 60 q12. - EZPAP q6 hours. -Patient is DNR/DNI per my discussion with family. They do desire PEG and would agree to intubation for PEG and up to 24 hours after. - BiPAP PRN CV: Coronary artery disease Aortic aneurysm - Supportive care -Metoprolol 2.5 IV q6 hours for HTN. -Hydralazine/labetalol prn SBP >165 - Echo 07/24 - EF 50-55%. PAP 48 mmHg. TR is trace. GI: Elevated Lipase Unable to insert NGT. GI deferred PEG due to respiratory status IR consulted for PEG but desire hold ASA x5 days so tentatively Sunday 08/05. Lipase >2000. Exam seems benign but is limited due to neuro status. Repeat CT abd/pelvis. F/u Lipase in am. Check triglycerides. Geodon has been associated with pancreatitis but in case report this was associated with NMS which is not at play here . FEN/RENAL/: R Hydronephrosis - [place] not to be obstructed by Urologist. Acute Hypernatremia - Etiology undetermined. Started after lasix diuresis and diuretics have now been held since 07/29. -Check urine osm. - On D5W @ 100 ml/hr and sodium is trending down. Do not need correction to be any more rapid at this time given presence of stroke with cerebral edema and the fact that creatinine and UOP are stable. Also wanting to avoid aggressive IVF due to respiratory status. No access for enteral free water or else that would be preferred. - Geodon discontinued 07/30 due to concern that might be contributing to Hyponatremia ID: Afebrile. Mild leukocytosis on 07/31. Will f/u. HEME: Obtain CBC today. ENDO: TSH low but normal T4. ?subclinical hyperthyroid. Would recheck labs in 6 weeks after acute issues have improved. PROPH: - Teds SCDs - Subcutaneous heparin was placed on PEG, will resume if CT brain neg, given PEG not anticipated for few days. - Pepcid 10 mg IV q12 hours. ACCESS: PIV DNR/DNI. Agreeable to intubation only if needed to attain PEG. and daughter updated at bedside Level 3 followup Nika Koo MD Aug 01, 2017 11:42
[2017-08-01] MEDS: METOPROLOL TARTRATE 5 MG/5 ML VIAL IV PUSH SCH ×2 (13:00→18:02)
[2017-08-01 14:57] LABS: AUTOMATED NEUTROPHIL # 9.8 TH/MM3 (1.8-7.7); HEMATOCRIT 43.3 % (39.0-51.0); LYMPH % 3.2 % (9.0-44.0); LYMPHOCYTE # 0.3 TH/MM3 (1.0-4.8); MEAN CELL VOLUME 96.2 FL (80.0-100.0); MEAN CORPUSCULAR HEMOGLOBIN 31.2 PG (27.0-34.0); MEAN CORPUSCULAR HGB CONC 32.4 % (32.0-36.0); MONO % 3.9 % (0.0-8.0); NEUT % 92.9 % (16.0-70.0); PLATELET COUNT 82 TH/MM3 (150-450); RED BLOOD COUNT 4.51 MIL/MM3 (4.50-5.90); RED CELL DISTRIBUTION WIDTH 14.2 % (11.6-17.2); WHITE BLOOD COUNT 10.6 TH/MM3 (4.0-11.0)
[2017-08-01 15:05] LABS: HEMO FLAGS AUTO DIFF
[2017-08-01 15:17] LABS: BICARBONATE 32.9 MEQ/L (21.0-32.0); POTASSIUM 4.3 MEQ/L (3.5-5.1)
--- NOTE | 2017-08-01 15:39 | RADRPT ---
EXAM DATE/TIME: 08/01/2017 15:09 [facility] COMPARISON: CTA BRAIN W 3D RECON, July 22, 2017, 22:51. CT BRAIN W/O CONTRAST, July 23, 2017, 22:04. INDICATIONS : Altered mental status. RADIATION DOSE: 36.52 CTDIvol (mGy) MEDICAL HISTORY : Cardiovascular disease. Hypertension. SURGICAL HISTORY : None. ENCOUNTER: Initial ACUITY: 1 day PAIN SCALE: Non-responsive LOCATION: cranial TECHNIQUE: Multiple contiguous axial images were obtained of the head. Using automated exposure control and adj ustment of the mA and/or kV according to patient size, radiation dose was kept as low as reasonably a chievable to obtain optimal diagnostic quality images. DICOM format image data is available electro nically for review and comparison. FINDINGS: There is continued evolution of a large right MCA territory infarct with increasing central gyriform densities consistent with evolving infarct. There is increased associated edema and mass effect with increasing sulcal effacement and effacement of the right lateral ventricle. Very subtle 2 mm right to left subfalcine shift. Basilar cisterns are grossly intact. No extra-axial or intraventricular hemor rhage. Remainder of the exam is unchanged. CONCLUSION: 1. Evolving large right MCA territory infarct with increased edema and mass effect. Subtle 2 mm right to left subfalcine shift. 2. No definite intercurrent hemorrhage. Oh Berry MD on August 01, 2017 at 15:21 Board Certified Radiologist. This report was verified electronically.
--- NOTE | 2017-08-01 16:09 | HHI.PR ---
Subjective Remarks Obtunded today ON O2/BIPAP NO DITRESS Objective Vital Signs Date Time Temp Pulse Resp B/P (MAP) Pulse Ox O2 Delivery O2 Flow Rate FiO2 08/01/17 14:38 18 08/01/17 14:00 76 08/01/17 12:00 85 08/01/17 12:00 98.5 85 26 153/81 (105) 93 08/01/17 12:00 93 Nasal Cannula 25.00 50 08/01/17 10:00 77 08/01/17 09:02 95 High Flow Nasal Cannula 25.00 50 08/01/17 08:00 96 08/01/17 08:00 93 Nasal Cannula 25.00 50 08/01/17 08:00 98.3 96 23 165/82 (109) 93 08/01/17 06:00 92 08/01/17 04:00 98.4 100 21 163/88 (113) 94 08/01/17 04:00 94 Nasal Cannula 25.00 50 Outdoor Adventure Instructor 08/01/17 04:00 100 08/01/17 02:00 97 08/01/17 00:00 100 08/01/17 00:00 98.5 100 23 163/67 (99) 94 08/01/17 00:00 95 Nasal Cannula 25.00 50 Outdoor Adventure Instructor 07/31/17 22:00 96 07/31/17 21:33 94 High Flow Nasal Cannula 25.00 50 07/31/17 20:00 86 07/31/17 20:00 98.1 86 17 170/77 (108) 95 07/31/17 20:00 95 Nasal Cannula 25.00 50 Outdoor Adventure Instructor 07/31/17 18:00 79 I/O 07/31/17 07/31/17 07/31/17 08/01/17 08/01/17 08/01/17 07:00 15:00 23:00 07:00 15:00 23:00 Intake Total 1000 ml 1019 ml 1237 ml 520 ml Output Total 350 ml 650 ml 450 ml Balance -350 ml 1000 ml 369 ml 787 ml 520 ml IV Total 1000 ml 1019 ml 1237 ml 520 ml Output Urine Total 350 ml 650 ml 450 ml # Voids 1 3 # Bowel Movements 1 Result Diagram: 08/01/17 1404 08/01/17 1404 Objective Remarks GENERAL: SKIN: Warm and dry. HEAD: Atraumatic. Normocephalic. EYES: Pupils equal and round. No scleral icterus. No injection or drainage. ENT: No nasal bleeding or discharge. Mucous membranes pink and moist. NECK: Trachea midline. No JVD. CARDIOVASCULAR: Regular rate and rhythm. RESPIRATORY: No accessory muscle use. Clear to auscultation. Breath sounds equal bilaterally. GASTROINTESTINAL: Abdomen soft, non-tender, nondistended. Hepatic and splenic margins not palpable. MUSCULOSKELETAL: Extremities without clubbing, cyanosis, or edema. No obvious deformities. NEUROLOGICAL: Awake and alert. No obvious cranial nerve deficits. Motor grossly within normal limits. Five out of 5 muscle strength in the arms and legs. Normal speech. PSYCHIATRIC: Appropriate mood and affect; insight and judgment normal. Assessment and Plan Assessment and Plan respiratory failure COPD S.P CVA PLAN O2 NEEDED BRONCHODILATORS prognosis poor Justina Horn MD Aug 01, 2017 16:09
[2017-08-01 16:11] LABS: PLATELET ESTIMATE SMEAR LOW (NORMAL); PLATELET MORPHOLOGY ENLARGED (NORMAL); SCAN/DIFF AUTO DIFF CONFIRMED
--- NOTE | 2017-08-01 16:18 | RADRPT ---
EXAM DATE/TIME: 08/01/2017 15:13 [facility] COMPARISON: CT ABDOMEN & PELVIS W CONTRAST, July 22, 2017, 22:51. INDICATIONS : Abdominal pain, elevated lipase. ORAL CONTRAST: No oral contrast ingested. RADIATION DOSE: 15.98 CTDIvol (mGy) MEDICAL HISTORY : Cardiovascular disease. Hypertension. SURGICAL HISTORY : None. ENCOUNTER: Initial ACUITY: 2 days PAIN SCALE: Non-responsive LOCATION: cranial TECHNIQUE: Volumetric scanning of the abdomen and pelvis was performed. Using automated exposure control and ad justment of the mA and/or kV according to patient size, radiation dose was kept as low as reasonably achievable to obtain optimal diagnostic quality images. DICOM format image data is available electro [place] clinically for review and comparison. FINDINGS: Study is breathing motion degraded. LOWER LUNGS: Linear areas of atelectasis seen within the bases. Significant mitral valve calcifications. Tiny hiat al hernia. LIVER: Homogeneous density without lesion. There is no dilation of the biliary tree. No calcified gallston es. SPLEEN: There is an approximate 1.8 cm low-density lesion involving the spleen. Poorly characterized due to l ack of IV contrast in conjunction with motion artifact. It is unchanged. PANCREAS: Within normal limits. KIDNEYS: Bilateral hydronephrosis. This is new on the left. This is stable on the right. Hydroureter is seen o n the right but no hydroureter on the left. The right ureter can be followed down to the urinary blad leila. No discrete stone or obstructing lesion observed on this unenhanced study. ADRENAL GLANDS: Within normal limits. VASCULAR: Aneurysmal change of the infrarenal aorta again seen. This is bilobed in nature. It measures 4.0 x 3. 9 cm. This is stable. BOWEL/MESENTERY: The stomach, small bowel, and colon demonstrate no acute abnormality. There is no free intraperitone al air or fluid. Scattered colonic diverticuli. No acute inflammatory change. ABDOMINAL WALL: Within normal limits. RETROPERITONEUM: There is no lymphadenopathy. BLADDER: No wall thickening or mass. REPRODUCTIVE: Multiple prostate seeds. Otherwise, unremarkable. INGUINAL: There is no lymphadenopathy or hernia. MUSCULOSKELETAL: Within normal limits for patient age. CONCLUSION: 1. The study is degraded by breathing motion artifact. 2. Bilateral hydronephrosis. This is new on the left and unchanged on the right. Hydroureter seen on the right but not on the left. This extends down to the urinary bladder. I see no obstructing mass or stone on this study. 3. Unremarkable pancreas. 4. Stable 4.0 x 3.9 centimeter AAA 5. Colonic diverticulosis. 6. 1.8 cm low-density lesion involving the spleen is poorly characterized on this exam. It is stable from the prior study. Tino Villalobos Jr., MD on August 01, 2017 at 15:59 Board Certified Radiologist. This report was verified electronically.
--- NOTE | 2017-08-01 16:55 | HHI.PR ---
Review/Management Diagnosis/Plan: (1) Ischemic stroke ICD Codes: I63.9 - Cerebral infarction, unspecified Status: Acute Plan: R MCA infarct ct brain naicp cta brain nml ct carotids rt carotid 50%, left carotid/arch- calcifications without significant stenosis 07/23 moderate to large rt mca infarct on repeat ct scan, ? 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 (2) Hypoxemia ICD Codes: R09.02 - Hypoxemia Status: Acute Plan: DNI on high flow O2 (3) Pneumonia ICD Codes: J18.9 - Pneumonia, unspecified organism Status: Acute (4) COPD exacerbation ICD Codes: J44.1 - Chronic obstructive pulmonary disease with (acute) exacerbation Status: Acute Subjective Subjective Comments No acute events reported No headache No chest pain No dyspnea Active Medications Current Medications Medications (Trade) Dose Ordered Sig/Braden Route Start Time Stop Time Status Last Admin (NS Flush) 2 ml UNSCH PRN IV FLUSH 07/23/17 01:00 (NS Flush) 2 ml BID IV FLUSH 07/23/17 09:00 08/01/17 08:19 (Tylenol) 650 mg Q6H PRN PO 07/23/17 01:00 (Zofran Inj) 4 mg Q6H PRN IV PUSH 07/23/17 01:00 (Duoneb Neb) 1 ampule Q2HR NEB PRN INH 07/23/17 01:00 07/25/17 22:04 Miscellaneous Information 1 Q361D XX 07/23/17 01:00 (Chlorhexidine 2% Cloth) Taper DAILY@04 TOP 07/23/17 04:00 07/19/18 03:59 (Chlorhexidine 2% Cloth) 3 pack UNSCH PRN TOP 07/23/17 01:00 (Lilliam-Colace) 1 tab BID PO 07/23/17 09:00 07/27/17 07:54 (Milk Of Magnesia Liq) 30 ml Q12H PRN PO 07/23/17 01:00 (Senokot) 17.2 mg Q12H PRN PO 07/23/17 01:00 (Dulcolax Supp) 10 mg DAILY PRN RECTAL 07/23/17 01:00 07/31/17 06:20 (Lactulose Liq) 30 ml DAILY PRN PO 07/23/17 01:00 (Morphine Inj) 2 mg Q2H PRN IV 07/24/17 04:00 08/01/17 13:38 (Aspirin Supp) 300 mg DAILY RECTAL 07/24/17 09:30 Future Hold 07/31/17 09:40 (Apresoline Inj) 10 mg Q4HR PRN IV PUSH 07/25/17 16:15 07/31/17 06:00 (Pepcid Inj) 10 mg Q12HR IV PUSH 07/26/17 21:00 08/01/17 08:19 Miscellaneous Information D/C ICU ELECTROLYTE ORDERS... UNSCH PRN .XX 07/28/17 19:45 Miscellaneous Information ICU - CALL ORDERING PHYSIC... UNSCH PRN .XX 07/28/17 19:45 Potassium Chloride 100 ml @ 25 mls/hr UNSCH PRN IV 07/28/17 19:45 (K-Lyte Cl Eff) 50 meq UNSCH PRN PO 07/28/17 19:45 Potassium Chloride 100 ml @ 50 mls/hr UNSCH PRN IV 07/28/17 19:45 07/28/17 23:31 Magnesium Sulfate 4 gm/Sodium Chloride 108 ml @ 54 mls/hr UNSCH PRN IV 07/28/17 19:45 Magnesium Sulfate 2 gm/Sodium Chloride 104 ml @ 52 mls/hr UNSCH PRN IV 07/28/17 19:45 (Mag-Ox) 800 mg UNSCH PRN PO 07/28/17 19:45 Sodium Phosphate 30 mmol/Sodium Chloride 260 ml @ 43.333 mls/ hr UNSCH PRN IV 07/28/17 19:45 (K-Phos) 2,000 mg UNSCH PRN PO 07/28/17 19:45 Potassium Phosphate 30 mmol/ Sodium Chloride 260 ml @ 43.333 mls/ hr UNSCH PRN IV 07/28/17 19:45 (Trandate Inj) 10 mg Q1HR PRN IV PUSH 07/30/17 21:30 08/01/17 16:51 Nicardipine HCl 25 mg/Sodium Chloride 250 ml @ 50 mls/hr TITRATE PRN IV 07/30/17 21:30 Dextrose 1,000 ml @ 100 mls/hr Q10H IV 07/31/17 07:30 08/01/17 11:34 (SoluMEDROL INJ) 60 mg Q12H IV PUSH 08/01/17 18:00 (Duoneb Neb) 1 ampule Q6HR NEB NEB 08/01/17 16:00 (Lopressor Inj) 2.5 mg Q6H IV PUSH 08/01/17 13:00 08/01/17 13:00 Allergies Allergies Coded Allergies No Known Allergies ([id number]/12/17) Review of Systems All other ROS: ROS reviewed as documented in chart Exam I&O / VS 08/01/17 08/01/17 08/02/17 15:00 23:00 07:00 Intake Total 520 ml Balance 520 ml IV Total 520 ml Vital Signs Date Time Temp Pulse Resp B/P (MAP) Pulse Ox O2 Delivery O2 Flow Rate FiO2 08/01/17 16:00 97.7 87 20 159/65 (96) 92 08/01/17 16:00 87 08/01/17 16:00 92 Nasal Cannula 25.00 50 08/01/17 14:38 18 08/01/17 14:00 76 08/01/17 12:00 85 08/01/17 12:00 98.5 85 26 153/81 (105) 93 08/01/17 12:00 93 Nasal Cannula 25.00 50 08/01/17 10:00 77 08/01/17 09:02 95 High Flow Nasal Cannula 25.00 50 08/01/17 08:00 96 08/01/17 08:00 93 Nasal Cannula 25.00 50 08/01/17 08:00 98.3 96 23 165/82 (109) 93 08/01/17 06:00 92 08/01/17 04:00 98.4 100 21 163/88 (113) 94 08/01/17 04:00 94 Nasal Cannula 25.00 50 Digital Media Director 08/01/17 04:00 100 08/01/17 02:00 97 08/01/17 00:00 100 08/01/17 00:00 98.5 100 23 163/67 (99) 94 08/01/17 00:00 95 Nasal Cannula 25.00 50 Digital Media Director 07/31/17 22:00 96 07/31/17 21:33 94 High Flow Nasal Cannula 25.00 50 07/31/17 20:00 86 07/31/17 20:00 98.1 86 17 170/77 (108) 95 07/31/17 20:00 95 Nasal Cannula 25.00 50 Digital Media Director 07/31/17 18:00 79 Exam Comments alert, follows, very dysphonic speech, rt gaze, left hh, left facial droop, left ue 0/5, left leg 1-2/5 Objective Micro and Labs Laboratory Tests Test 07/31/17 17:22 07/31/17 20:40 08/01/17 06:37 08/01/17 13:10 Sodium Level 164 162 161 Blood Urea Nitrogen 58 59 Creatinine 1.75 1.70 Random Glucose 159 155 Calcium Level 8.1 8.1 Potassium Level 4.2 4.7 Chloride Level 127 124 Carbon Dioxide Level 29.8 31.4 Anion Gap 5 6 Estimat Glomerular Filtration Rate 37 38 Lipase 2805 Free Thyroxine 1.28 Urine Osmolality 737 Urine Random Sodium 41 Test 08/01/17 14:04 White Blood Count 10.6 Red Blood Count 4.51 Hemoglobin 14.0 Hematocrit 43.3 Mean Corpuscular Volume 96.2 Mean Corpuscular Hemoglobin 31.2 Mean Corpuscular Hemoglobin Concent 32.4 Red Cell Distribution Width 14.2 Platelet Count 82 Mean Platelet Volume 9.3 Neutrophils (%) (Auto) 92.9 Lymphocytes (%) (Auto) 3.2 Monocytes (%) (Auto) 3.9 Eosinophils (%) (Auto) 0.0 Basophils (%) (Auto) 0.0 Neutrophils # (Auto) 9.8 Lymphocytes # (Auto) 0.3 Monocytes # (Auto) 0.4 Eosinophils # (Auto) 0.0 Basophils # (Auto) 0.0 CBC Comment AUTO DIFF Differential Comment AUTO DIFF CONFIRMED Platelet Estimate LOW Platelet Morphology Comment ENLARGED Blood Urea Nitrogen 58 Creatinine 1.62 Random Glucose 146 Calcium Level 7.9 Sodium Level 160 Potassium Level 4.3 Chloride Level 123 Carbon Dioxide Level 32.9 Anion Gap 4 Estimat Glomerular Filtration Rate 41 Date/Time Source Procedure Growth Status 07/23/17 00:24 Blood Peripheral Aerobic Blood Culture - Final NO GROWTH IN 5 DAYS Complete 07/23/17 00:24 Blood Peripheral Anaerobic Blood Culture - Final NO GROWTH IN 5 DAYS Complete Problem Qualifiers (1) Pneumonia: Qualified Codes: J18.9 - Pneumonia, unspecified organism Jose Hendrix MD Aug 01, 2017 16:54
[2017-08-01] MEDS: RESP: ALBUTEROL 2.5 MG/IPRATROPIUM 0.5 MG NEB (SCH) NEB ×2 (17:07→21:01)
[2017-08-01 23:27] LABS: BICARBONATE 31.3 MEQ/L (21.0-32.0); POTASSIUM 4.6 MEQ/L (3.5-5.1)
[2017-08-02] VITALS (14 sets, daily range): BP systolic 115–179; BP diastolic 53–81; PULSE 72–102; RESP 15–25; TEMP 98.2–99; O2SAT 92–100
[2017-08-02] MEDS: METOPROLOL TARTRATE 5 MG/5 ML VIAL IV PUSH SCH ×4 (01:00→18:24)
[2017-08-02] MEDS: CHLORHEXIDINE GLUCONATE 2 % 1 PACK (2 CLOTHS) TOP SCH (02:35)
[2017-08-02] MEDS: MORPHINE SULFATE 2 MG/ML INJ IV PRN ×5 (04:09→22:15)
[2017-08-02] MEDS: RESP: ALBUTEROL 2.5 MG/IPRATROPIUM 0.5 MG NEB (SCH) NEB ×4 (05:15→20:44)
[2017-08-02 06:06] LABS: AUTOMATED NEUTROPHIL # 10.4 TH/MM3 (1.8-7.7); BASOPHIL # 0.1 TH/MM3 (0-0.2); BASOPHIL % 0.5 % (0.0-2.0); HEMATOCRIT 43.4 % (39.0-51.0); LYMPH % 3.4 % (9.0-44.0); LYMPHOCYTE # 0.4 TH/MM3 (1.0-4.8); MEAN CELL VOLUME 95.2 FL (80.0-100.0); MEAN CORPUSCULAR HEMOGLOBIN 31.2 PG (27.0-34.0); MEAN CORPUSCULAR HGB CONC 32.7 % (32.0-36.0); NEUT % 93.1 % (16.0-70.0); PLATELET COUNT 65 TH/MM3 (150-450); RED BLOOD COUNT 4.56 MIL/MM3 (4.50-5.90); RED CELL DISTRIBUTION WIDTH 13.4 % (11.6-17.2); WHITE BLOOD COUNT 11.2 TH/MM3 (4.0-11.0)
[2017-08-02 06:08] LABS: HEMO FLAGS AUTO DIFF
[2017-08-02] MEDS: DEXTROSE 5% IN WATE 1000ML INJ 1,000 ML IV SCH ×2 (06:24→20:14)
[2017-08-02] MEDS: methylPREDNISolone SOD SUCC 125 MG/2 ML VIAL IV PUSH SCH ×2 (06:24→18:24)
--- NOTE | 2017-08-02 06:26 | RADRPT ---
EXAM DATE/TIME: 08/02/2017 04:51 [facility] COMPARISON: CHEST SINGLE AP, July 25, 2017, 21:12. INDICATIONS : Short of breath. MEDICAL HISTORY : Cardiovascular disease. Hypertension. COPD. SURGICAL HISTORY : None. ENCOUNTER: Subsequent ACUITY: 2 weeks PAIN SCORE: Non-responsive. LOCATION: Bilateral chest FINDINGS: A single view of the chest demonstrates the lungs to be symmetrically aerated without evidence of mas s, infiltrate or effusion. The cardiomediastinal contours are unremarkable. Osseous structures are intact. CONCLUSION: No acute disease. Fransico Babcock MD on August 02, 2017 at 6:22 Board Certified Radiologist. This report was verified electronically.
[2017-08-02 06:44] LABS: POTASSIUM 4.4 MEQ/L (3.5-5.1)
[2017-08-02 08:01] LABS: BANDS 6 % (0-6); NEUTROPHIL # MANUAL DIFF 10.4 TH/MM3 (1.8-7.7); PLATELET ESTIMATE SMEAR LOW (NORMAL); PLATELET MORPHOLOGY NORMAL (NORMAL); POLYS (SEG NEUTROPHILS) 87 % (16-70); SCAN/DIFF FINAL DIFF MANUAL; WBC DIFF SAMPLE 100
[2017-08-02] MEDS: FAMOTIDINE 20 MG/2 ML VIAL IV PUSH SCH ×2 (08:03→20:09)
[2017-08-02] MEDS: DOCUSATE SODIUM 50 MG/SENNA 8.6 MG TAB PO SCH ×2 (09:00→20:10)
--- NOTE | 2017-08-02 09:45 | HHI.CCPN ---
Subjective Remarks/Hospital Course 86 year old male presents with a history of last being seen normal at approximately 9:30 PM while sitting on the couch watching television. The patient then proceeded to take a few large deep breaths and then fell face forward onto the carpeted floor. The patient was unable to get up. He was noted to have at that time a left facial droop, left upper and left lower extremity weakness. He has no prior history of stroke. He has a prior history of brain aneurysm status post clipping about 30 years ago. The patient is awake and alert and is able to follow commands although he does have slurred speech. The patient has a gaze deviation to the right with a palsy with attempting to look to the left. He also has a left-sided facial droop. Stroke alert was called and the case was discussed with Dr. 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 Due to multiple comorbidities abdominal aneurysm and previous head bleed, the patient's family refused the administration of TPA. 07/24: Stable hemodynamics. 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 Urology Service opines that right ureter is no obstructed - no additional treatment unless creatinine rises. 07/25: COPD exacerbation with air trapping and respiratory acidosis. Patient is DNI status but family requests continued aggressive care otherwise. Will transfer to ICU and start BiPAP, steroids, dilators. 07/26: Appears comfortable on NC. No significant wheezing. Talkative. Left hemiplegia persists. Failed swallow eval. 07/27: Back on BiPAP due to hypoxemia. 07/28: Requires BiPAP still. Well diuresed, cultures NGTD. 07/29: Taking PO acceptably. 07/30: Can't tolerate PO. Family requests PEG. Long talk with daughter who states he would not want to live like this. wants everything done. 07/31: Following large MCA stroke patient remains agitated and combative. His Na has drifted up to 170 now - possible DI from atypical antipsychotic. Hgb concentrated considerably now. Random lipase > 2700. TSH low. Will follow hydrate aggressively but attempt to avoid lung problems. Follow lipase and T4. No abdominal pain. Family remains split on aggressive efforts. Grandson now wants PEG tube but DNR status precludes GI placement. We are attempting to arrange PEG with IR using light sedation only. Ideally we'd revoke the DNR long enough to place the PEG, family accepts a short term intubation. 08/01 Sodium downtrending gradually on D5W. Remains on HFNC 50% 25 L/min. Afebrile. ASA on hold for tentative planning for IR to place PEG tube on Sunday 08/05. Patient is DNR. and daughter are at bedside and state that they would be agreeable for intubation for 24 hours only if needed for PEG. They would not want trach. Family states he has spoke a couple garbled words to them today. Subjective 08/02: Remains on high flow nasal cannula 60% 25 L per minute. Afebrile. Currently sitting in stretcher chair. Moving right upper extremity spontaneous. Objective Vital Signs Date Time Temp Pulse Resp B/P (MAP) Pulse Ox O2 Delivery O2 Flow Rate FiO2 08/02/17 08:09 20 08/02/17 08:00 100 Nasal Cannula 25.00 60 Humidified 08/02/17 08:00 99.0 85 159/66 (97) Intake and Output 08/02/17 08/02/17 08/03/17 08:00 16:00 00:00 Intake Total 1000 ml Output Total 1000 ml Balance 0 ml Result Diagram: 08/02/17 0528 08/02/17 0528 Other Results Microbiology Date/Time Source Procedure Growth Status 07/23/17 00:24 Blood Peripheral Aerobic Blood Culture - Final NO GROWTH IN 5 DAYS Complete 07/23/17 00:24 Blood Peripheral Anaerobic Blood Culture - Final NO GROWTH IN 5 DAYS Complete Imaging Last Impressions Chest X-Ray 08/02/17 0600 Signed Impressions: Service Date/Time: Wednesday, August 02, 2017 04:51 - CONCLUSION: No acute disease. Fransico Babcock MD Head CT 08/01/17 0000 Signed Impressions: Service Date/Time: Tuesday, August 01, 2017 15:09 - CONCLUSION: 1. Evolving large right MCA territory infarct with increased edema and mass effect. Subtle 2 mm right to left subfalcine shift. 2. No definite intercurrent hemorrhage. Oh Berry MD Abdomen/Pelvis CT 08/01/17 0000 Signed Impressions: Service Date/Time: Tuesday, August 01, 2017 15:13 - CONCLUSION: 1. The study is degraded by breathing motion artifact. 2. Bilateral hydronephrosis. This is new on the left and unchanged on the right. Hydroureter seen on the right but not on the left. This extends down to the urinary bladder. I see no obstructing mass or stone on this study. 3. Unremarkable pancreas. 4. Stable 4.0 x 3.9 centimeter AAA 5. Colonic diverticulosis. 6. 1.8 cm low-density lesion involving the spleen is poorly characterized on this exam. It is stable from the prior study. Tino Villalobos Jr., MD Abdomen X-Ray 07/31/17 0000 Signed Impressions: Service Date/Time: July 04:40 - CONCLUSION: No acute disease. Fransico Sadler MD Neck CTA [id number] Signed Impressions: Service Date/Time: Saturday, July 22, 2017 22:51 - CONCLUSION: 1. Calcification in the proximal right internal carotid artery causing 50%% lumen narrowing. 2. Calcifications the origin of the great vessels from the aorta and in the left internal carotid artery with out significant luminal narrowing. Tino Lenz MD Head CTA [id number] Signed Impressions: Service Date/Time: Saturday, July 22, 2017 22:51 - CONCLUSION: No evidence of vessel truncation or aneurysm. Tino Lenz MD Cervical Spine CT [id number] Signed Impressions: Service Date/Time: Saturday, July 22, 2017 22:51 - CONCLUSION: 1. Degenerative changes throughout the cervical spine. 2. No evidence of compression deformity or spondylolisthesis. Tino Lenz MD Objective Remarks GENERAL: 86-year-old Elderly male who is sitting up in stretcher chair on flow nasal cannula SKIN: Warm and dry, adequately perfused. HEAD: Forehead abrasions on the left side, healing, clean EYES: No scleral icterus. No injection or drainage. NECK: Supple, trachea midline. CARDIOVASCULAR: RRR. S1, S2 no S4 without murmur RESPIRATORY: Open-mouth breathing.. Symmetrical excursion. No wheezing rales or rhonchi. GASTROINTESTINAL: Abdomen soft, protruberant. Does not appear to have abdominal tenderness or guarding. Bowel sounds present : Condom catheter in place. MUSCULOSKELETAL: No significant peripheral edema. Well perfused. NEURO EXAM: Withdrawals to noxious stimuli, no audible words during my exam. Left-sided facial droop. The patient has a gaze palsy when attempting to gaze to the left side. Moves RUE and RLE spontaneously but does not follow commands. L hemiplegia A/P Assessment and Plan NEURO/PSYCH: Acute ischemic stroke, R MCA L hemiplegia and aphasia - No TPA administered due to AAA and family concerns - R hand dominant at baseline. - Aspirin recommended per neurology, previous CM 3 mg per rectum daily. Currently on hold for IR placement of PEG. - PT and OT - Speech evaluation and treatment-keep NPO per speech recommendation - CTA neck 07/22 - R internal carotid 50% lesion, no intervention. Calcification L carotid without significant narrowing. - CT brain 08/01 - evolving right MCA, edema with 2 mm subfalcine right to left midline shift. RESP: COPD, exacerbated with respiratory acidosis (improved) High flow nasal cannula 60%/25 L per minute. Wean FiO2 to maintain saturations greater than equal to 92% Albuterol/ipratropium aerosols every 6 hours albuterol aerosols every 2 hours as needed dyspnea Methylprednisolone 60 mg IV every 12 hours - EZPAP q6 hours. -Patient is DNR/DNI per my discussion with family. They do desire PEG and would agree to intubation for PEG and up to 24 hours after. - BiPAP PRN CV: Coronary artery disease Abdominal Aortic aneurysm - 4.0 x 3.9 cm Pulmonary hypertension - Supportive care -Metoprolol 5 IV q6 hours for HTN. - labetalol 10 mg IV every 8 hours prn SBP >165 - Echo 07/24 - EF 50-55%. PAP 48 mmHg. TR is trace. GI: Elevated Lipase Colonic diverticulosis Unable to insert NGT. GI deferred PEG due to respiratory status IR consulted for PEG but desire hold ASA x5 days so tentatively Sunday 08/05. Lipase >2000. Exam seems benign but is limited due to neuro status. Repeat CT abd/pelvis. F/u Lipase in am. Check triglycerides. - Normal 07/23 FEN/RENAL/: Bilateral hydronephrosis with right hydroureter Acute Hypernatremia - Etiology undetermined. Started after furosemide diuresis and diuretics have now been held since 07/29. -Check urine osm - greater than 700 likely from intravascular depletion. Uric acid pending. Serum os and pending. On intravenous steroids so cortisol level will be inaccurate. TSH low but free T4 normal - On D5W @ 100 ml/hr and sodium is trending down. Do not need correction to be any more rapid at this time given presence of stroke with cerebral edema and the fact that creatinine and UOP are stable. Also wanting to avoid aggressive IVF due to respiratory status. No access for enteral free wate - Ziprasidone discontinued 07/30 due to concern that might be contributing to Hyponatremia - [place] not to be obstructed by Urologist. - Placed Maurice catheter ID: Monitor for infection HEME: Leukocytosis Thrombocytopenia Follow CBC daily. Monitor trends ENDO: TSH low but normal T4. ?subclinical hyperthyroid. Would recheck labs in 6 weeks after acute issues have improved. PROPH: - Teds SCDs - Subcutaneous heparin resumed -Famotidine 10 mg IV q12 hours. ACCESS: PIV DNR/DNI. Agreeable to intubation only if needed to attain PEG. and daughter updated at bedside Level II follow-up Levi Morfin MD Aug 02, 2017 09:45
[2017-08-02] MEDS: SODIUM CHLORIDE 0.9% FLUSH 10 ML FLUSH IV FLUSH SCH ×2 (09:48→20:09)
[2017-08-02] MEDS ORDERED: RESP: ALBUTEROL 2.5 MG/3 ML NEB (PRN) NEB (10:00)
--- NOTE | 2017-08-02 10:04 | HHI.PR ---
Review/Management Diagnosis/Plan: (1) Ischemic stroke ICD Codes: I63.9 - Cerebral infarction, unspecified Status: Acute Plan: R MCA infarct ct brain naicp cta brain nml ct carotids rt carotid 50%, left carotid/arch- calcifications without significant stenosis 07/23 moderate to large rt mca infarct on repeat ct scan, ? 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 (2) Hypoxemia ICD Codes: R09.02 - Hypoxemia Status: Acute Plan: DNI on high flow O2 (3) Pneumonia ICD Codes: J18.9 - Pneumonia, unspecified organism Status: Acute (4) COPD exacerbation ICD Codes: J44.1 - Chronic obstructive pulmonary disease with (acute) exacerbation Status: Acute Subjective Subjective Comments No acute events reported No headache No chest pain No dyspnea Active Medications Current Medications Medications (Trade) Dose Ordered Sig/Braden Route Start Time Stop Time Status Last Admin (NS Flush) 2 ml UNSCH PRN IV FLUSH 07/23/17 01:00 (NS Flush) 2 ml BID IV FLUSH 07/23/17 09:00 08/02/17 09:48 (Tylenol) 650 mg Q6H PRN PO 07/23/17 01:00 (Zofran Inj) 4 mg Q6H PRN IV PUSH 07/23/17 01:00 Miscellaneous Information 1 Q361D XX 07/23/17 01:00 (Chlorhexidine 2% Cloth) Taper DAILY@04 TOP 07/23/17 04:00 07/19/18 03:59 (Chlorhexidine 2% Cloth) 3 pack UNSCH PRN TOP 07/23/17 01:00 (Lilliam-Colace) 1 tab BID PO 07/23/17 09:00 07/27/17 07:54 (Milk Of Magnesia Liq) 30 ml Q12H PRN PO 07/23/17 01:00 (Senokot) 17.2 mg Q12H PRN PO 07/23/17 01:00 (Dulcolax Supp) 10 mg DAILY PRN RECTAL 07/23/17 01:00 07/31/17 06:20 (Lactulose Liq) 30 ml DAILY PRN PO 07/23/17 01:00 (Morphine Inj) 2 mg Q2H PRN IV 07/24/17 04:00 08/02/17 08:04 (Aspirin Supp) 300 mg DAILY RECTAL 07/24/17 09:30 Future Hold 07/31/17 09:40 (Pepcid Inj) 10 mg Q12HR IV PUSH 07/26/17 21:00 08/02/17 08:03 Miscellaneous Information D/C ICU ELECTROLYTE ORDERS... UNSCH PRN .XX 07/28/17 19:45 Miscellaneous Information ICU - CALL ORDERING PHYSIC... UNSCH PRN .XX 07/28/17 19:45 Potassium Chloride 100 ml @ 25 mls/hr UNSCH PRN IV 07/28/17 19:45 (K-Lyte Cl Eff) 50 meq UNSCH PRN PO 07/28/17 19:45 Potassium Chloride 100 ml @ 50 mls/hr UNSCH PRN IV 07/28/17 19:45 07/28/17 23:31 Magnesium Sulfate 4 gm/Sodium Chloride 108 ml @ 54 mls/hr UNSCH PRN IV 07/28/17 19:45 Magnesium Sulfate 2 gm/Sodium Chloride 104 ml @ 52 mls/hr UNSCH PRN IV 07/28/17 19:45 (Mag-Ox) 800 mg UNSCH PRN PO 07/28/17 19:45 Sodium Phosphate 30 mmol/Sodium Chloride 260 ml @ 43.333 mls/ hr UNSCH PRN IV 07/28/17 19:45 (K-Phos) 2,000 mg UNSCH PRN PO 07/28/17 19:45 Potassium Phosphate 30 mmol/ Sodium Chloride 260 ml @ 43.333 mls/ hr UNSCH PRN IV 07/28/17 19:45 (Trandate Inj) 10 mg Q1HR PRN IV PUSH 07/30/17 21:30 08/01/17 16:51 Nicardipine HCl 25 mg/Sodium Chloride 250 ml @ 50 mls/hr TITRATE PRN IV 07/30/17 21:30 Dextrose 1,000 ml @ 100 mls/hr Q10H IV 07/31/17 07:30 08/02/17 06:24 (SoluMEDROL INJ) 60 mg Q12H IV PUSH 08/01/17 18:00 08/02/17 06:24 (Duoneb Neb) 1 ampule Q6HR NEB NEB 08/01/17 16:00 08/02/17 09:27 (Albuterol Neb) 2.5 mg Q2HR NEB PRN NEB 08/02/17 10:00 UNV (Lopressor Inj) 5 mg Q6H IV PUSH 08/02/17 13:00 UNV Allergies Allergies Coded Allergies No Known Allergies ([id number]/12/17) Review of Systems All other ROS: ROS reviewed as documented in chart Exam I&O / VS Vital Signs Date Time Temp Pulse Resp B/P (MAP) Pulse Ox O2 Delivery O2 Flow Rate FiO2 08/02/17 09:31 96 Nasal Cannula 25.00 60 08/02/17 08:09 20 08/02/17 08:00 100 Nasal Cannula 25.00 60 Humidified 08/02/17 08:00 99.0 85 20 159/66 (97) 100 08/02/17 08:00 84 08/02/17 06:00 74 08/02/17 04:00 Nasal Cannula 25.00 60 Humidified 08/02/17 04:00 89 08/02/17 04:00 98.2 82 21 130/62 (84) 92 08/02/17 02:00 82 08/02/17 00:00 98.8 86 15 115/53 (73) 92 08/02/17 00:00 Nasal Cannula 25.00 60 Humidified 08/02/17 00:00 86 08/01/17 22:00 84 08/01/17 21:02 95 High Flow Nasal Cannula 25.00 60 08/01/17 20:00 98.5 82 23 146/69 (94) 93 08/01/17 20:00 77 08/01/17 20:00 Nasal Cannula 25.00 60 Humidified 08/01/17 18:00 86 08/01/17 16:00 97.7 87 20 159/65 (96) 92 08/01/17 16:00 87 08/01/17 16:00 92 Nasal Cannula 25.00 50 08/01/17 14:00 76 08/01/17 12:00 85 08/01/17 12:00 98.5 85 26 153/81 (105) 93 08/01/17 12:00 93 Nasal Cannula 25.00 50 Exam Comments alert, follows, very dysphonic speech, rt gaze, left hh, left facial droop, left ue 0/5, left leg 1-2/5 Objective Micro and Labs Laboratory Tests Test 08/01/17 13:10 08/01/17 14:04 08/01/17 22:32 08/02/17 05:28 Urine Osmolality 737 Urine Random Sodium 41 White Blood Count 10.6 11.2 Red Blood Count 4.51 4.56 Hemoglobin 14.0 14.2 Hematocrit 43.3 43.4 Mean Corpuscular Volume 96.2 95.2 Mean Corpuscular Hemoglobin 31.2 31.2 Mean Corpuscular Hemoglobin Concent 32.4 32.7 Red Cell Distribution Width 14.2 13.4 Platelet Count 82 65 Mean Platelet Volume 9.3 9.3 Neutrophils (%) (Auto) 92.9 93.1 Lymphocytes (%) (Auto) 3.2 3.4 Monocytes (%) (Auto) 3.9 3.0 Eosinophils (%) (Auto) 0.0 0.0 Basophils (%) (Auto) 0.0 0.5 Neutrophils # (Auto) 9.8 10.4 Lymphocytes # (Auto) 0.3 0.4 Monocytes # (Auto) 0.4 0.3 Eosinophils # (Auto) 0.0 0.0 Basophils # (Auto) 0.0 0.1 CBC Comment AUTO DIFF AUTO DIFF Differential Comment AUTO DIFF CONFIRMED FINAL DIFF MANUAL Platelet Estimate LOW LOW Platelet Morphology Comment ENLARGED NORMAL Blood Urea Nitrogen 58 55 54 Creatinine 1.62 1.51 1.45 Random Glucose 146 144 121 Calcium Level 7.9 7.7 7.7 Sodium Level 160 158 156 Potassium Level 4.3 4.6 4.4 Chloride Level 123 122 120 Carbon Dioxide Level 32.9 31.3 31.0 Anion Gap 4 5 5 Estimat Glomerular Filtration Rate 41 44 46 Triglycerides Level 144 Differential Total Cells Counted 100 Neutrophils % (Manual) 87 Band Neutrophils % 6 Lymphocytes % 3 Monocytes % 4 Neutrophils # (Manual) 10.4 Red Cell Morphology Comment NORMAL Date/Time Source Procedure Growth Status 07/23/17 00:24 Blood Peripheral Aerobic Blood Culture - Final NO GROWTH IN 5 DAYS Complete 07/23/17 00:24 Blood Peripheral Anaerobic Blood Culture - Final NO GROWTH IN 5 DAYS Complete Problem Qualifiers (1) Pneumonia: Qualified Codes: J18.9 - Pneumonia, unspecified organism Jose Hendrix MD Aug 02, 2017 10:03
[2017-08-02] MEDS: LABETALOL HCL 100 MG/20 ML VIAL IV PUSH PRN ×2 (13:10→20:08)
[2017-08-02 14:28] LABS: BICARBONATE 30.5 MEQ/L (21.0-32.0); POTASSIUM 4.6 MEQ/L (3.5-5.1)
--- NOTE | 2017-08-02 17:34 | HHI.PR ---
Subjective Remarks 74 YOWM with CVA, RF,COPD,HTN On high flow 02 No Fever family at BS Objective Vital Signs Vital Signs Date Time Temp Pulse Resp B/P (MAP) Pulse Ox O2 Delivery O2 Flow Rate FiO2 08/02/17 16:00 98.7 76 19 131/62 (85) 93 08/02/17 16:00 93 Nasal Cannula 25.00 60 08/02/17 16:00 76 08/02/17 14:00 72 08/02/17 13:15 20 08/02/17 12:00 93 Nasal Cannula 25.00 60 08/02/17 12:00 90 08/02/17 12:00 98.7 82 19 163/81 (108) 96 08/02/17 10:00 99 08/02/17 09:31 96 Nasal Cannula 25.00 60 08/02/17 08:00 100 Nasal Cannula 25.00 60 Humidified 08/02/17 08:00 99.0 85 20 159/66 (97) 100 08/02/17 08:00 84 08/02/17 06:00 74 08/02/17 04:00 Nasal Cannula 25.00 60 Humidified 08/02/17 04:00 89 08/02/17 04:00 98.2 82 21 130/62 (84) 92 08/02/17 02:00 82 08/02/17 00:00 98.8 86 15 115/53 (73) 92 08/02/17 00:00 Nasal Cannula 25.00 60 Humidified 08/02/17 00:00 86 08/01/17 22:00 84 08/01/17 21:02 95 High Flow Nasal Cannula 25.00 60 08/01/17 20:00 98.5 82 23 146/69 (94) 93 08/01/17 20:00 77 08/01/17 20:00 Nasal Cannula 25.00 60 Humidified 08/01/17 18:00 86 I/O 08/01/17 08/01/17 08/01/17 08/02/17 08/02/17 08/02/17 07:00 15:00 23:00 07:00 15:00 23:00 Intake Total 1237 ml 520 ml 825 ml 1000 ml Output Total 450 ml 550 ml 1000 ml Balance 787 ml 520 ml 275 ml 0 ml Intake Oral 0 ml 0 ml IV Total 1237 ml 520 ml 825 ml 1000 ml Output Urine Total 450 ml 550 ml 1000 ml # Voids 3 # Bowel Movements 0 0 Result Diagram: 08/02/17 0528 08/02/17 1325 Objective Remarks GENERAL: Elderly male mild sob SKIN: Warm and dry. HEAD: Normocephalic. EYES: No scleral icterus. No injection or drainage. NECK: Supple, trachea midline. No JVD or lymphadenopathy. CARDIOVASCULAR: Regular rate and rhythm without murmurs, gallops, or rubs. RESPIRATORY: Breath sounds equal bilaterally. No accessory muscle use. GASTROINTESTINAL: Abdomen soft, non-tender, nondistended. MUSCULOSKELETAL: No cyanosis, or edema. BACK: Nontender without obvious deformity. No CVA tenderness. A/P Assessment and Plan Resp Faliure CVA HTN COPD PLAN: High flow 02 Keep sat >92% Aerosol nebs Family at BS For Feeding tube placement friday. Len Canales MD Aug 02, 2017 17:34
[2017-08-02] MEDS: HEPARIN SODIUM - SQ 10,000 UNITS/ML VIAL SQ SCH (20:08)
[2017-08-02 22:21] LABS: BICARBONATE 29.9 MEQ/L (21.0-32.0); POTASSIUM 4.6 MEQ/L (3.5-5.1)
[2017-08-03] VITALS (14 sets, daily range): BP systolic 131–173; BP diastolic 62–86; PULSE 60–93; RESP 16–27; TEMP 97.4–98.7; O2SAT 90–97
[2017-08-03] MEDS: METOPROLOL TARTRATE 5 MG/5 ML VIAL IV PUSH SCH ×4 (01:00→19:00)
[2017-08-03] MEDS: MORPHINE SULFATE 2 MG/ML INJ IV PRN ×3 (01:06→22:14)
[2017-08-03] MEDS: RESP: ALBUTEROL 2.5 MG/IPRATROPIUM 0.5 MG NEB (SCH) NEB ×4 (03:17→20:44)
[2017-08-03] MEDS: CHLORHEXIDINE GLUCONATE 2 % 1 PACK (2 CLOTHS) TOP SCH (03:38)
[2017-08-03] MEDS: methylPREDNISolone SOD SUCC 125 MG/2 ML VIAL IV PUSH SCH (05:38)
[2017-08-03 06:12] LABS: AUTOMATED NEUTROPHIL # 16.7 TH/MM3 (1.8-7.7); BASOPHIL % 0.2 % (0.0-2.0); HEMATOCRIT 47.7 % (39.0-51.0); LYMPH % 1.7 % (9.0-44.0); LYMPHOCYTE # 0.3 TH/MM3 (1.0-4.8); MEAN CELL VOLUME 95.7 FL (80.0-100.0); MEAN CORPUSCULAR HEMOGLOBIN 30.7 PG (27.0-34.0); MEAN CORPUSCULAR HGB CONC 32.1 % (32.0-36.0); MONO % 3.1 % (0.0-8.0); PLATELET COUNT 75 TH/MM3 (150-450); RED BLOOD COUNT 4.98 MIL/MM3 (4.50-5.90); RED CELL DISTRIBUTION WIDTH 13.5 % (11.6-17.2); WHITE BLOOD COUNT 17.6 TH/MM3 (4.0-11.0)
[2017-08-03 06:16] LABS: APTT (PATIENT) 28.3 SEC (24.3-30.1); HEMO FLAGS AUTO DIFF; INTERNATIONAL NORMALIZED RATIO 1.4 RATIO; PROTHROMBIN TIME - PATIENT 14.5 SEC (9.8-11.6)
[2017-08-03 06:27] LABS: ALT (GPT) 62 U/L (12-78); ANION GAP 3 MEQ/L (5-15); AST (GOT) 63 U/L (15-37); BICARBONATE 32.8 MEQ/L (21.0-32.0); BLOOD UREA NITROGEN 56 MG/DL (7-18); CHLORIDE 111 MEQ/L (98-107); GLOMERULAR FILTRATION RATE 42 ML/MIN (>89); MAGNESIUM 2.5 MG/DL (1.5-2.5); POTASSIUM 5.2 MEQ/L (3.5-5.1); SODIUM (NA) 147 MEQ/L (136-145); URIC ACID 7.2 MG/DL (2.6-7.2)
[2017-08-03 06:31] LABS: ALKALINE PHOSPHATASE 76 U/L (45-117); TOTAL BILIRUBIN ADULT 1.1 MG/DL (0.2-1.0)
[2017-08-03 06:32] LABS: AMYLASE 221 U/L (25-115)
[2017-08-03 07:38] LABS: BANDS 2 % (0-6); METAMYELOCYTES 1 % (0-1); MYELOCYTES 2 % (0-0); NEUTROPHIL # MANUAL DIFF 17.2 TH/MM3 (1.8-7.7); PLATELET ESTIMATE SMEAR LOW (NORMAL); POLYS (SEG NEUTROPHILS) 93 % (16-70); WBC DIFF SAMPLE 100
[2017-08-03 07:39] LABS: PLATELET MORPHOLOGY NORMAL (NORMAL); SCAN/DIFF FINAL DIFF MANUAL
[2017-08-03] MEDS: DEXTROSE 5% IN WATE 1000ML INJ 1,000 ML IV SCH ×2 (07:51→12:09)
[2017-08-03] MEDS: FAMOTIDINE 20 MG/2 ML VIAL IV PUSH SCH ×2 (08:05→22:15)
[2017-08-03] MEDS: DOCUSATE SODIUM 50 MG/SENNA 8.6 MG TAB PO SCH ×2 (08:06→21:00)
[2017-08-03] MEDS: HEPARIN SODIUM - SQ 10,000 UNITS/ML VIAL SQ SCH ×2 (08:06→21:00)
[2017-08-03] MEDS: SODIUM CHLORIDE 0.9% FLUSH 10 ML FLUSH IV FLUSH SCH ×2 (08:06→21:00)
[2017-08-03] MEDS: LABETALOL HCL 100 MG/20 ML VIAL IV PUSH PRN ×3 (08:08→18:20)
--- NOTE | 2017-08-03 11:34 | HHI.PR ---
Review/Management Diagnosis/Plan: (1) Ischemic stroke ICD Codes: I63.9 - Cerebral infarction, unspecified Status: Acute Plan: R MCA infarct ct brain naicp cta brain nml ct carotids rt carotid 50%, left carotid/arch- calcifications without significant stenosis 07/23 moderate to large rt mca infarct on repeat ct scan, ? rt mca hyperdense sign persistent deficit recs comfort care reasonable in light of resp distress and neuro status, age d/w corporate associate attorney following (2) Hypoxemia ICD Codes: R09.02 - Hypoxemia Status: Acute Plan: DNI on high flow O2 (3) Pneumonia ICD Codes: J18.9 - Pneumonia, unspecified organism Status: Acute (4) COPD exacerbation ICD Codes: J44.1 - Chronic obstructive pulmonary disease with (acute) exacerbation Status: Acute Subjective Subjective Comments in resp distress Active Medications Current Medications Medications (Trade) Dose Ordered Sig/Braden Route Start Time Stop Time Status Last Admin (NS Flush) 2 ml UNSCH PRN IV FLUSH 07/23/17 01:00 (NS Flush) 2 ml BID IV FLUSH 07/23/17 09:00 08/03/17 08:06 (Tylenol) 650 mg Q6H PRN PO 07/23/17 01:00 (Zofran Inj) 4 mg Q6H PRN IV PUSH 07/23/17 01:00 Miscellaneous Information 1 Q361D XX 07/23/17 01:00 (Chlorhexidine 2% Cloth) Taper DAILY@04 TOP 07/23/17 04:00 07/19/18 03:59 (Chlorhexidine 2% Cloth) 3 pack UNSCH PRN TOP 07/23/17 01:00 (Lilliam-Colace) 1 tab BID PO 07/23/17 09:00 07/27/17 07:54 (Milk Of Magnesia Liq) 30 ml Q12H PRN PO 07/23/17 01:00 (Senokot) 17.2 mg Q12H PRN PO 07/23/17 01:00 (Dulcolax Supp) 10 mg DAILY PRN RECTAL 07/23/17 01:00 07/31/17 06:20 (Lactulose Liq) 30 ml DAILY PRN PO 07/23/17 01:00 (Morphine Inj) 2 mg Q2H PRN IV 07/24/17 04:00 08/03/17 05:37 (Aspirin Supp) 300 mg DAILY RECTAL 07/24/17 09:30 Future Hold 07/31/17 09:40 (Pepcid Inj) 10 mg Q12HR IV PUSH 07/26/17 21:00 08/03/17 08:05 Miscellaneous Information D/C ICU ELECTROLYTE ORDERS... UNSCH PRN .XX 07/28/17 19:45 Miscellaneous Information ICU - CALL ORDERING PHYSIC... UNSCH PRN .XX 07/28/17 19:45 Potassium Chloride 100 ml @ 25 mls/hr UNSCH PRN IV 07/28/17 19:45 (K-Lyte Cl Eff) 50 meq UNSCH PRN PO 07/28/17 19:45 Potassium Chloride 100 ml @ 50 mls/hr UNSCH PRN IV 07/28/17 19:45 07/28/17 23:31 Magnesium Sulfate 4 gm/Sodium Chloride 108 ml @ 54 mls/hr UNSCH PRN IV 07/28/17 19:45 Magnesium Sulfate 2 gm/Sodium Chloride 104 ml @ 52 mls/hr UNSCH PRN IV 07/28/17 19:45 (Mag-Ox) 800 mg UNSCH PRN PO 07/28/17 19:45 Sodium Phosphate 30 mmol/Sodium Chloride 260 ml @ 43.333 mls/ hr UNSCH PRN IV 07/28/17 19:45 (K-Phos) 2,000 mg UNSCH PRN PO 07/28/17 19:45 Potassium Phosphate 30 mmol/ Sodium Chloride 260 ml @ 43.333 mls/ hr UNSCH PRN IV 07/28/17 19:45 (Trandate Inj) 10 mg Q1HR PRN IV PUSH 07/30/17 21:30 08/03/17 08:08 Nicardipine HCl 25 mg/Sodium Chloride 250 ml @ 50 mls/hr TITRATE PRN IV 07/30/17 21:30 Dextrose 1,000 ml @ 100 mls/hr Q10H IV 07/31/17 07:30 08/03/17 07:51 (SoluMEDROL INJ) 60 mg Q12H IV PUSH 08/01/17 18:00 08/03/17 05:38 (Duoneb Neb) 1 ampule Q6HR NEB NEB 08/01/17 16:00 08/03/17 08:49 (Albuterol Neb) 2.5 mg Q2HR NEB PRN NEB 08/02/17 10:00 (Lopressor Inj) 5 mg Q6H IV PUSH 08/02/17 13:00 08/03/17 06:14 (Heparin Inj) 5,000 units Q12HR SQ 08/02/17 21:00 08/03/17 08:06 Sodium Chloride 11 meq/Sodium Acetate 59 meq/ Potassium Chloride 40 meq/ Magnesium Chloride 10 meq/ Calcium Chloride 9 meq/ Multivitamins 10 ml/Folic Acid 1 mg/Amino Acids/ Dextrose 2,074.1437 ml @ 100 mls/hr [id number] IV 08/03/17 20:00 08/03/17 09:41 Fat Emulsion Intravenous 250 ml @ 10 mls/hr Q24H IV 08/03/17 20:00 Allergies Allergies Coded Allergies No Known Allergies ([id number]/12/17) Review of Systems All other ROS: ROS reviewed as documented in chart Exam I&O / VS Vital Signs Date Time Temp Pulse Resp B/P (MAP) Pulse Ox O2 Delivery O2 Flow Rate FiO2 08/03/17 08:52 96 Nasal Cannula 30.00 82 08/03/17 08:00 98.7 70 19 164/74 (104) 90 08/03/17 08:00 63 08/03/17 08:00 90 Nasal Cannula 25.00 70 08/03/17 06:00 72 08/03/17 04:00 77 08/03/17 04:00 93 Nasal Cannula 25.00 70 08/03/17 04:00 97.6 77 16 165/77 (106) 93 08/03/17 02:00 93 08/03/17 00:00 97.4 90 27 133/86 (102) 96 08/03/17 00:00 96 Nasal Cannula 25.00 70 08/03/17 00:00 90 08/02/17 22:00 93 Nasal Cannula 25.00 70 08/02/17 22:00 102 08/02/17 20:45 96 High Flow Nasal Cannula 60.00 08/02/17 20:00 97 Nasal Cannula 25.00 60 08/02/17 20:00 82 08/02/17 20:00 98.5 80 25 179/77 (111) 97 08/02/17 18:28 18 08/02/17 18:00 79 12/23/17 16:00 98.7 76 19 131/62 (85) 93 08/02/17 16:00 93 Nasal Cannula 25.00 60 08/02/17 16:00 76 08/02/17 14:00 72 08/02/17 12:00 93 Nasal Cannula 25.00 60 08/02/17 12:00 90 08/02/17 12:00 98.7 82 19 163/81 (108) 96 Exam Comments alert, in resp distress, open mouth breathing with tachypnea and accessory muscle use, very dysphonic speech, inconsistently follows with rt side, minimal rt gaze, left hh, left facial droop, left ue 0/5, left leg 1-2/5 Objective Micro and Labs Laboratory Tests Test 08/02/17 13:25 08/02/17 21:33 08/03/17 05:39 Blood Urea Nitrogen 51 48 56 Creatinine 1.51 1.39 1.58 Random Glucose 121 122 143 Calcium Level 7.5 7.5 7.6 Sodium Level 155 151 147 Potassium Level 4.6 4.6 5.2 Chloride Level 119 115 111 Carbon Dioxide Level 30.5 29.9 32.8 Anion Gap 6 6 3 Estimat Glomerular Filtration Rate 44 48 42 White Blood Count 17.6 Red Blood Count 4.98 Hemoglobin 15.3 Hematocrit 47.7 Mean Corpuscular Volume 95.7 Mean Corpuscular Hemoglobin 30.7 Mean Corpuscular Hemoglobin Concent 32.1 Red Cell Distribution Width 13.5 Platelet Count 75 Mean Platelet Volume 9.9 Neutrophils (%) (Auto) 95.0 Lymphocytes (%) (Auto) 1.7 Monocytes (%) (Auto) 3.1 Eosinophils (%) (Auto) 0.0 Basophils (%) (Auto) 0.2 Neutrophils # (Auto) 16.7 Lymphocytes # (Auto) 0.3 Monocytes # (Auto) 0.5 Eosinophils # (Auto) 0.0 Basophils # (Auto) 0.0 CBC Comment AUTO DIFF Differential Total Cells Counted 100 Neutrophils % (Manual) 93 Band Neutrophils % 2 Lymphocytes % 1 Monocytes % 1 Neutrophils # (Manual) 17.2 Metamyelocytes 1 Myelocytes 2 Differential Comment FINAL DIFF MANUAL Platelet Estimate LOW Platelet Morphology Comment NORMAL Red Cell Morphology Comment NORMAL Prothrombin Time 14.5 Prothromb Time International Ratio 1.4 Activated Partial Thromboplast Time 28.3 Total Protein 6.4 Albumin 2.4 Phosphorus Level 6.6 Magnesium Level 2.5 Uric Acid 7.2 Alkaline Phosphatase 76 Aspartate Amino Transf (AST/SGOT) 63 Alanine Aminotransferase (ALT/SGPT) 62 Total Bilirubin 1.1 Serum Osmolality 335 Lactic Acid Level 1.0 Ammonia 57 Amylase Level 221 Lipase 1221 Date/Time Source Procedure Growth Status 07/23/17 00:24 Blood Peripheral Aerobic Blood Culture - Final NO GROWTH IN 5 DAYS Complete 07/23/17 00:24 Blood Peripheral Anaerobic Blood Culture - Final NO GROWTH IN 5 DAYS Complete Problem Qualifiers (1) Pneumonia: Qualified Codes: J18.9 - Pneumonia, unspecified organism Jose Hendrix MD Aug 03, 2017 11:34
[2017-08-03] MEDS ORDERED: CALCIUM GLUCONATE 10% 1 GM/10 ML VIAL SLOW IVP ONE (14:15)
[2017-08-03] MEDS ORDERED: SODIUM BICARBONATE 8.4% SOLN 50 MEQ/50 ML VIAL SLOW IVP ONE (14:15)
[2017-08-03] MEDS ORDERED: INSULIN HUMAN REGULAR 1,000 UNITS/10 ML VIAL IV PUSH ONE (14:15)
[2017-08-03] MEDS ORDERED: GLYCERIN ADULT 2 GM SUPP RECTAL ONE (14:15)
[2017-08-03] MEDS ORDERED: DEXTROSE 50% IN WATER 50 ML VIAL(D50) IV PUSH ONE (14:15)
--- NOTE | 2017-08-03 14:15 | HHI.CCPN ---
Subjective Remarks/Hospital Course 86 year old male presents with a history of last being seen normal at approximately 9:30 PM while sitting on the couch watching television. The patient then proceeded to take a few large deep breaths and then fell face forward onto the carpeted floor. The patient was unable to get up. He was noted to have at that time a left facial droop, left upper and left lower extremity weakness. He has no prior history of stroke. He has a prior history of brain aneurysm status post clipping about 30 years ago. The patient is awake and alert and is able to follow commands although he does have slurred speech. The patient has a gaze deviation to the right with a palsy with attempting to look to the left. He also has a left-sided facial droop. Stroke alert was called and the case was discussed with Dr. Brown, the neurologist education faculty member. Due to multiple comorbidities abdominal aneurysm and previous head bleed, the patient's family refused the administration of TPA. 07/24: Stable hemodynamics. 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 Urology Service opines that right ureter is no obstructed - no additional treatment unless creatinine rises. 07/25: COPD exacerbation with air trapping and respiratory acidosis. Patient is DNI status but family requests continued aggressive care otherwise. Will transfer to ICU and start BiPAP, steroids, dilators. 07/26: Appears comfortable on NC. No significant wheezing. Talkative. Left hemiplegia persists. Failed swallow eval. 07/27: Back on BiPAP due to hypoxemia. 07/28: Requires BiPAP still. Well diuresed, cultures NGTD. 07/29: Taking PO acceptably. 07/30: Can't tolerate PO. Family requests PEG. Long talk with daughter who states he would not want to live like this. wants everything done. 07/31: Following large MCA stroke patient remains agitated and combative. His Na has drifted up to 170 now - possible DI from atypical antipsychotic. Hgb concentrated considerably now. Random lipase > 2700. TSH low. Will follow hydrate aggressively but attempt to avoid lung problems. Follow lipase and T4. No abdominal pain. Family remains split on aggressive efforts. Grandson now wants PEG tube but DNR status precludes GI placement. We are attempting to arrange PEG with IR using light sedation only. Ideally we'd revoke the DNR long enough to place the PEG, family accepts a short term intubation. 08/01 Sodium downtrending gradually on D5W. Remains on HFNC 50% 25 L/min. Afebrile. ASA on hold for tentative planning for IR to place PEG tube on Sunday 08/05. Patient is DNR. and daughter are at bedside and state that they would be agreeable for intubation for 24 hours only if needed for PEG. They would not want trach. Family states he has spoke a couple garbled words to them today. 08/02: Remains on high flow nasal cannula 60% 25 L per minute. Afebrile. Currently sitting in stretcher chair. Moving right upper extremity spontaneous. Subjective 08/03: Currently resting in stretcher chair. FiO2 increased to 80% overnight. Neurologically unchanged. No bowel movement. Objective Vital Signs Date Time Temp Pulse Resp B/P (MAP) Pulse Ox O2 Delivery O2 Flow Rate FiO2 08/03/17 12:00 98.4 72 18 173/77 (109) 91 08/03/17 12:00 Nasal Cannula 30.00 82 Intake and Output 08/03/17 08/03/17 08/04/17 08:00 16:00 00:00 Intake Total 1004 ml Output Total 500 ml Balance 504 ml Result Diagram: 08/03/17 0539 08/03/17 0539 Other Results Microbiology Date/Time Source Procedure Growth Status 07/23/17 00:24 Blood Peripheral Aerobic Blood Culture - Final NO GROWTH IN 5 DAYS Complete 07/23/17 00:24 Blood Peripheral Anaerobic Blood Culture - Final NO GROWTH IN 5 DAYS Complete Imaging Last Impressions Chest X-Ray 08/02/17 0600 Signed Impressions: Service Date/Time: Wednesday, August 02, 2017 04:51 - CONCLUSION: No acute disease. Fransico Babcock MD Head CT 08/01/17 0000 Signed Impressions: Service Date/Time: Tuesday, August 01, 2017 15:09 - CONCLUSION: 1. Evolving large right MCA territory infarct with increased edema and mass effect. Subtle 2 mm right to left subfalcine shift. 2. No definite intercurrent hemorrhage. Oh Berry MD Abdomen/Pelvis CT 08/01/17 0000 Signed Impressions: Service Date/Time: Tuesday, August 01, 2017 15:13 - CONCLUSION: 1. The study is degraded by breathing motion artifact. 2. Bilateral hydronephrosis. This is new on the left and unchanged on the right. Hydroureter seen on the right but not on the left. This extends down to the urinary bladder. I see no obstructing mass or stone on this study. 3. Unremarkable pancreas. 4. Stable 4.0 x 3.9 centimeter AAA 5. Colonic diverticulosis. 6. 1.8 cm low-density lesion involving the spleen is poorly characterized on this exam. It is stable from the prior study. Tino Villalobos Jr., MD Abdomen X-Ray 07/31/17 0000 Signed Impressions: Service Date/Time: July 04:40 - CONCLUSION: No acute disease. Fransico Sadler MD Neck CTA [id number]/[id number] Signed Impressions: Service Date/Time: Saturday, July 22, 2017 22:51 - CONCLUSION: 1. Calcification in the proximal right internal carotid artery causing 50%% lumen narrowing. 2. Calcifications the origin of the great vessels from the aorta and in the left internal carotid artery with out significant luminal narrowing. Tino Lenz MD Head CTA [id number] Signed Impressions: Service Date/Time: Saturday, July 22, 2017 22:51 - CONCLUSION: No evidence of vessel truncation or aneurysm. Tino Lenz MD Cervical Spine CT [id number] Signed Impressions: Service Date/Time: Saturday, July 22, 2017 22:51 - CONCLUSION: 1. Degenerative changes throughout the cervical spine. 2. No evidence of compression deformity or spondylolisthesis. Tino Lenz MD Objective Remarks GENERAL: 86-year-old Elderly male who is sitting up in stretcher chair on high flow nasal cannula SKIN: Warm and dry, adequately perfused. HEAD: Forehead abrasions on the left side, healing, clean EYES: No scleral icterus. No injection or drainage. NECK: Supple, trachea midline. CARDIOVASCULAR: RRR. S1, S2 no S4 without murmur RESPIRATORY: Open-mouth breathing.. Symmetrical excursion. No wheezing rales or rhonchi. GASTROINTESTINAL: Abdomen soft, protruberant. Does not appear to have abdominal tenderness or guarding. Bowel sounds present : Maurice catheter in place. With taiwo urine MUSCULOSKELETAL: No significant peripheral edema. Well perfused. NEURO EXAM: Withdrawals to noxious stimuli, no audible words during my exam. Left-sided facial droop. The patient has a gaze palsy when attempting to gaze to the left side. Moves RUE and RLE spontaneously but does not follow commands. L hemiplegia A/P Assessment and Plan NEURO/PSYCH: Acute ischemic stroke, R MCA L hemiplegia and aphasia - No TPA administered due to AAA and family concerns - R hand dominant at baseline. - Aspirin recommended per neurology, previous on 300 mg per rectum daily. Currently on hold for IR placement of PEG. - PT and OT - Speech evaluation and treatment-keep NPO per speech recommendation - CTA neck 07/22 - R internal carotid 50% lesion, no intervention. Calcification L carotid without significant narrowing. - CT brain 08/01 - evolving right MCA, edema with 2 mm subfalcine right to left midline shift. RESP: Acute hypoxemic respiratory failure COPD, exacerbated High flow nasal cannula 80%/30 L per minute. Wean FiO2 to maintain saturations greater than equal to 90% Albuterol/ipratropium aerosols every 6 hours albuterol aerosols every 2 hours as needed dyspnea Methylprednisolone 40 mg IV every 8 hours - EZPAP q6 hours. -Patient is DNR/DNI per my discussion with family. They do desire PEG and would agree to intubation for PEG and up to 24 hours after. Current respiratory status precludes that - BiPAP PRN Follow-up chest x-ray in a.m. 08/04 CV: Coronary artery disease Abdominal Aortic aneurysm - 4.0 x 3.9 cm Pulmonary hypertension - Supportive care -Metoprolol 5 IV q6 hours for HTN. - labetalol 10 mg IV every 8 hours prn SBP >165 - Echo 07/24 - EF 50-55%. PAP 48 mmHg. TR is trace. GI: Elevated Lipase Colonic diverticulosis Elevated ammonia level Unable to insert NGT. GI deferred PEG due to respiratory status IR consulted for PEG but desire hold ASA x5 days so tentatively Sunday 08/05. Lipase >1200. Exam seems benign but is limited due to neuro status. Repeat CT abd/pelvis. F/u Lipase in am. Check triglycerides. - Normal 07/23 Start Clinimix 100 cc an hour. DC D5. FEN/RENAL/: Bilateral hydronephrosis with right hydroureter Acute Hypernatremia Hyperkalemia Hyperphosphatemia Hypocalcemia - Etiology undetermined. Started after furosemide diuresis and diuretics have now been held since 07/29. -Check urine osm - greater than 700 likely from intravascular depletion. Uric acid pending. Serum os and pending. On intravenous steroids so cortisol level will be inaccurate. TSH low but free T4 normal - On D5W @ 100 ml/hr and sodium is trending down. Do not need correction to be any more rapid at this time given presence of stroke with cerebral edema and the fact that creatinine and UOP are stable. Also wanting to avoid aggressive IVF due to respiratory status. No access for enteral free wate - Ziprasidone discontinued 07/30 due to concern that might be contributing to Hyponatremia - [place] not to be obstructed by Urologist. - Placed Maurice catheter ID: Monitor for infection HEME: Leukocytosis Thrombocytopenia Follow CBC daily. Monitor trends ENDO: TSH low but normal T4. ?subclinical hyperthyroid. Would recheck labs in 6 weeks after acute issues have improved. PROPH: - Teds SCDs - Subcutaneous heparin resumed -Famotidine 10 mg IV q12 hours. ACCESS: PIV DNR/DNI. Agreeable to intubation only if needed to attain PEG. and daughter updated at bedside Level II follow-up Levi Morfin MD Aug 03, 2017 14:15
--- NOTE | 2017-08-03 15:58 | HHI.PR ---
Subjective Remarks 74 YOWM with CVA, RF,COPD,HTN On high flow 02 No Fever family at BS Less responsive Requiring 80 % Fi02 Objective Vital Signs Vital Signs Date Time Temp Pulse Resp B/P (MAP) Pulse Ox O2 Delivery O2 Flow Rate FiO2 08/03/17 14:00 60 08/03/17 12:00 98.4 72 18 173/77 (109) 91 08/03/17 12:00 93 Nasal Cannula 30.00 82 08/03/17 12:00 72 08/03/17 10:00 72 08/03/17 08:52 96 Nasal Cannula 30.00 82 08/03/17 08:00 98.7 70 19 164/74 (104) 90 08/03/17 08:00 63 08/03/17 08:00 90 Nasal Cannula 25.00 70 08/03/17 06:00 72 08/03/17 04:00 77 08/03/17 04:00 93 Nasal Cannula 25.00 70 08/03/17 04:00 97.6 77 16 165/77 (106) 93 08/03/17 02:00 93 08/03/17 00:00 97.4 90 27 133/86 (102) 96 08/03/17 00:00 96 Nasal Cannula 25.00 70 08/03/17 00:00 90 08/02/17 22:00 93 Nasal Cannula 25.00 70 08/02/17 22:00 102 08/02/17 20:45 96 High Flow Nasal Cannula 60.00 08/02/17 20:00 97 Nasal Cannula 25.00 60 08/02/17 20:00 82 08/02/17 20:00 98.5 80 25 179/77 (111) 97 08/02/17 18:28 18 08/02/17 18:00 79 08/02/17 16:00 98.7 76 19 131/62 (85) 93 08/02/17 16:00 93 Nasal Cannula 25.00 60 08/02/17 16:00 76 I/O 08/02/17 08/02/17 08/02/17 08/03/17 08/03/17 08/03/17 07:00 15:00 23:00 07:00 15:00 23:00 Intake Total 1000 ml 777 ml 1004 ml Output Total 1000 ml 800 ml 500 ml Balance 0 ml -23 ml 504 ml Intake Oral 0 ml 0 ml IV Total 1000 ml 777 ml 1004 ml Output Urine Total 1000 ml 800 ml 500 ml # Bowel Movements 0 0 Result Diagram: 08/03/1753808/03/17538 Objective Remarks GENERAL: Elderly male mild sob SKIN: Warm and dry. HEAD: Normocephalic. EYES: No scleral icterus. No injection or drainage. NECK: Supple, trachea midline. No JVD or lymphadenopathy. CARDIOVASCULAR: Regular rate and rhythm without murmurs, gallops, or rubs. RESPIRATORY: Breath sounds equal bilaterally. No accessory muscle use. GASTROINTESTINAL: Abdomen soft, non-tender, nondistended. MUSCULOSKELETAL: No cyanosis, or edema. BACK: Nontender without obvious deformity. No CVA tenderness. A/P Assessment and Plan Resp Faliure CVA HTN COPD PLAN: High flow 02 Keep sat >92% Aerosol nebs DW Family at BS For Feeding tube placement friday. Len Canales MD Aug 03, 2017 15:58
[2017-08-03] MEDS ORDERED: FAT EMULSION 20% INJ 250 ML (@10 mls/hr) IV SCH (20:00)
[2017-08-03] MEDS ORDERED: RESP: BUDESONIDE 0.5 MG/2 ML NEB NEB SCH (20:00)
[2017-08-03] MEDS ORDERED: CLINIMIX IV SCH ×8 (20:00)
[2017-08-03] MEDS ORDERED: ARTIFICIAL TEARS OPTH SOLN 15 ML BTL EACH EYE SCH (21:00)
[2017-08-03] MEDS ORDERED: methylPREDNISolone SOD SUCC 125 MG/2 ML VIAL IV PUSH SCH (22:00)
[2017-08-04] VITALS: BP 158/67; PULSE 80; RESP 24; TEMP 98.2; O2SAT 96
[2017-08-04] MEDS: METOPROLOL TARTRATE 5 MG/5 ML VIAL IV PUSH SCH (01:00)
[2017-08-04 02:00] VITALS: PULSE 80
[2017-08-04] MEDS: RESP: ALBUTEROL 2.5 MG/IPRATROPIUM 0.5 MG NEB (SCH) NEB (03:28)
[2017-08-04] MEDS ORDERED: EPINEPHrine HCL (1:10,000) 1 MG/10 ML SYRINGE ONE (03:36)
--- NOTE | 2017-08-04 03:40 | DEATH SUM ---
Pronouncement Date Pronounced : Aug 04, 2017 Time Of : 03:40 Pronouncement Called to pronounce of patient. Identified patient as Gerber Nick with wrist band MR# [id number]. Patient with no cardiac activity in 2 separate leads and no palpable/auscible cardiac activity. Patient with no spontaneous respirations, no corneal reflex or response to painful stimuli. Pupils fixed and dilated. Preliminary Cause of : Respiratory arrest Patrick Otero MD Aug 04, 2017 03:40
== END 2017-08-04 13:54 | disposition expired | DRG 64 ==
LOC: NEPC 22:25 → NEDA 07-23 00:22 → N03A 07-23 02:50 → N05A 07-24 22:03 → N04A 07-25 19:10 → N03A 07-25 21:29
PROVIDERS: ADMIT Surgery Surgical Critical Care; ATTEND Surgery Surgical Critical Care
PROC: 5A09357 Assistance with Respiratory Ventilation, Less than 24 Consecutive Hours, Continuous Positive Airway Pressure (ICD-10-PCS; principal; 2017-07-25)
DX: I63.511 Cerebral infarction due to unspecified occlusion or stenosis of right middle cerebral artery (principal); J18.9 Pneumonia, unspecified organism; J96.01 Acute respiratory failure with hypoxia; G93.6 Cerebral edema; E87.0 Hyperosmolality and hypernatremia; J44.0 Chronic obstructive pulmonary disease with (acute) lower respiratory infection; R09.2 Respiratory arrest; E87.2 Acidosis; D69.6 Thrombocytopenia, unspecified; R13.12 Dysphagia, oropharyngeal phase; G81.94 Hemiplegia, unspecified affecting left nondominant side; J44.1 Chronic obstructive pulmonary disease with (acute) exacerbation; N13.30 Unspecified hydronephrosis; Z99.81 Dependence on supplemental oxygen; R29.810 Facial weakness; Z86.79 Personal history of other diseases of the circulatory system; Z95.5 Presence of coronary angioplasty implant and graft; I25.10 Atherosclerotic heart disease of native coronary artery without angina pectoris; R05 Cough; N40.0 Benign prostatic hyperplasia without lower urinary tract symptoms; R47.81 Slurred speech; S30.1XXA Contusion of abdominal wall, initial encounter; R91.8 Other nonspecific abnormal finding of lung field; R93.5 Abnormal findings on diagnostic imaging of other abdominal regions, including retroperitoneum; S00.81XA Abrasion of other part of head, initial encounter; I71.4 Abdominal aortic aneurysm, without rupture; Z85.46 Personal history of malignant neoplasm of prostate; Z92.3 Personal history of irradiation; I25.2 Old myocardial infarction; I10 Essential (primary) hypertension; Z51.5 Encounter for palliative care; K21.9 Gastro-esophageal reflux disease without esophagitis; E78.5 Hyperlipidemia, unspecified; Z85.828 Personal history of other malignant neoplasm of skin; Z87.891 Personal history of nicotine dependence; Z82.3 Family history of stroke; R06.03 Acute respiratory distress; R00.0 Tachycardia, unspecified; I27.20 Pulmonary hypertension, unspecified; Z66 Do not resuscitate; K57.30 Diverticulosis of large intestine without perforation or abscess without bleeding; E83.39 Other disorders of phosphorus metabolism; E83.51 Hypocalcemia; E87.5 Hyperkalemia; E05.90 Thyrotoxicosis, unspecified without thyrotoxic crisis or storm; I49.3 Ventricular premature depolarization
CPT/HCPCS: 36600; 70450; 70496; 70498; 71010; 72125; 74000; 74176; 74177; 80048; 80053; 80061; 80076; 80307; 81001; 82140; 82150; 82435; 82550; 82565; 82805; 82947; 83036; 83605; 83690; 83735; 83880; 83930; 83935; 84100; 84132; 84295; 84300; 84439; 84443; 84478; 84484; 84520; 84550; 85007; 85025; 85027; 85384; 85610; 85730; 86850; 86900; 86901; 87040; 87641; 93005; 93306; 94002; 94003; 94640; 94664; 94667; 94668; 95819; 96360; J0171; J0360; J0456; J0610; J0696; J1644; J1815; J1940; J2270; J2930; J3480; J3486; J7030; J7050; J7070; J7626; P9612; Q9967